=== PATIENT | female | born 1940 | race Caucasian/White ===

== ENCOUNTER 2022-03-20 09:05 | Inpatient (IN) | payer MEDICARE, SELFPAY ==
[2022-03-20] VITALS (8 sets, daily range): BP systolic 131–163; BP diastolic 56–73; PULSE 77–108; RESP 8–20; TEMP 36.6–36.9; O2SAT 94–99; BMI 24.7
--- NOTE | ~2022-03-20 | XR_ITS ---
EXAMINATION: XR SHOULDER, LEFT CLINICAL INFORMATION: Shoulder pain. COMPARISON: None TECHNIQUE: AP external rotation, Grashey, scapular Y, and axillary views of the left shoulder. FINDINGS: There is a severe loss of left glenohumeral joint space with inferior periarticular spurring. No visible acute fracture, dislocation or subluxation seen. Moderate left basilar scarring and hypertrophic changes of the acromion noted. No loose bodies or joint effusion seen. XR/XR shoulder LT min 2V IMPRESSION: Degenerative arthritic changes left shoulder. No visible acute fracture or dislocation seen.
--- NOTE | ~2022-03-20 | CT_ITS ---
EXAMINATION: CT angio head neck stroke CLINICAL INFORMATION: Question stroke. Facial droop. COMPARISON: CT head 03/20/2022. TECHNIQUE: Director Of Event Marketing images were obtained. A CT angiogram of the head and neck was performed in the arterial phase after the intravenous administration of 70 mL Omnipaque 350. Delayed postcontrast images of the head were also obtained. MIP reconstructions were generated in multiple orientations at the acquisition workstation. Multiple three-dimensional surface rendered images and maximum intensity projection images were generated on a dedicated 3-D lab workstation. Arterial stenoses are measured in accordance with NASCET criteria or similar method if applicable. This CT examination was performed using dose optimization techniques as appropriate, including one or more of the following: Automated exposure control, iterative reconstruction, and adjustment of technique factors (mA and/or kVp) according to patient size (this includes techniques or standardized protocols for targeted exams where dose is matched to indication/reason for exam). Fleischner Society criteria for the followup of incidental pulmonary nodules was implemented if appropriate. Total exam dose-length product 1450 mGy-cm FINDINGS: Head: There is a dome-shaped enhancing dural based mass over the left frontal convexity near the vertex best depicted on axial image 34 788 series 6 measuring approximately 0.6 cm in diameter most likely representing a small meningioma. Otherwise no abnormal intracranial mass or enhancement. There is no intracranial mass effect or midline shift. As seen on prior imaging there is subtle loss of powers-white matter differentiation within the right lentiform nucleus indicating possibility of an acute lacunar infarct in the setting of facial hemiparesis. No intracranial mass effect or hydrocephalus. The calvarium and skull base are intact. Mastoid air cells and middle ear cavities are well aerated. No active paranasal sinus disease. CT angiogram neck: Scattered atheromatous calcification involves the aortic arch apex. Origins of the major aortic branches are widely patent. Common carotid arteries are widely patent. Partially calcified atheromatous plaque involves both carotid bifurcations. No stenosis of the extracranial internal carotid arteries. The cervical vertebral arteries are widely patent. CT angiogram head: Intracranial internal carotid arteries are patent. The intradural vertebral artery segments and basilar artery are patent. Anterior, middle, and posterior cerebral artery complexes are normal. No intracranial large vessel occlusion. No identifiable aneurysm or high flow vascular lesion. The timing of the contrast injection provides adequate opacification of the dural venous sinuses. The right transverse and sigmoid sinus are hypoplastic. The dominant left transverse and sigmoid sinus are patent. Other: Soft tissues of the neck including the thyroid gland are normal. No pathologically enlarged cervical lymph nodes. Lung apices are clear. There is multilevel degenerative spondylosis of the cervical spine. Grossly no evidence of canal compromise. CT/CT angio head neck stroke IMPRESSION: As seen on prior imaging there is subtle loss of powers-white matter differentiation within the right lentiform nucleus indicating the possibility of an acute lacunar infarct in the setting of suspected stroke. There is no stenosis of the cervical carotid or vertebral arteries. No intracranial large vessel occlusion. No identifiable aneurysm or high flow vascular lesion. Incidentally there is a dome-shaped enhancing dural based mass over the left frontal convexity near the vertex measuring 0.6 cm in diameter most likely representing a small meningioma. This critical result was discussed with Dr Jeromy Mcfarland at 9:37 AM on 03/20/2022 and it was ascertained that the content and urgency of the report was understood at the time of direct communication.
--- NOTE | ~2022-03-20 | CT_ITS ---
EXAMINATION: CT HEAD WITHOUT CONTRAST (STROKE PROTOCOL) CLINICAL INFORMATION: Stroke protocol. Facial droop COMPARISON: None TECHNIQUE: Contiguous axial imaging was performed from the skull base to vertex without intravenous administration of contrast. This CT examination was performed using dose optimization techniques as appropriate, variously including the following: *Automated exposure control *Adjustment of mA and/or kV according to patient size (this includes techniques or standardized protocols for targeted exams where dose is matched to indication/reason for exam; i.e. extremities or head) *Use of iterative reconstruction technique DLP: 670 mGy-cm FINDINGS: There is a region of diminished density involving the right basal ganglia and extreme capsule consistent with infarct. No intracranial hemorrhage is identified. No significant mass effect. No midline structure shift is seen. Gonzalez-white matter interface is maintained. There is some mild prominence of ventricles, sulci, and cisterns consistent with some degree of generalized atrophy. There is some periventricular white matter low density seen consistent with microangiopathy. Visualized paranasal sinuses and mastoid air cells unremarkable. There is deformity of the right orbital globe question related to previous trauma. CT/CT head for stroke IMPRESSION: Findings consistent with right basal ganglia infarct. No hemorrhage or mass effect. This critical result was discussed with Dr. Mcfarland at 9:35 AM hours on March 20, 2022. It was ascertained that the content and urgency of the report was understood at the time of direct communication.
--- NOTE | ~2022-03-20 | XR_ITS ---
EXAMINATION: XR CHEST CLINICAL INFORMATION: Chest pain. COMPARISON: None TECHNIQUE: Frontal view of the chest was obtained. FINDINGS: The lungs are clear. The heart shows an aortic valve prosthesis and atrial appendage clip in place. Multilevel sternotomy wires are intact. XR/XR chest 1V IMPRESSION: No acute cardiopulmonary process.
--- NOTE | ~2022-03-20 | MR_ITS ---
MRI OF THE BRAIN WITHOUT IV CONTRAST INDICATION: Right basal ganglia infarct on CT. COMPARISON: CT head and CTA head and neck March 2022. TECHNIQUE: Multiplanar multisequence MR imaging of the brain was obtained without IV contrast. FINDINGS: There is no hydrocephalus, extra-axial surface collection, or herniation. There is an acute infarct involving the posterior right putamen and the body of the right caudate. There is no mass effect and there is no hemorrhagic transformation. There is global cerebral volume loss, there is mild chronic microangiopathy, there is a chronic lacunar infarct within the right frontal centrum semiovale. The major flow voids at the skull base are preserved. There is no acute infarct on diffusion-weighted imaging. There is no intracranial hemorrhage on the gradient recalled echo acquisition. The midline structures are normal. The cerebellar tonsils are normally positioned. There are a few chronic lacunar infarcts within the left cerebellum. The craniocervical junction is normal. Osseous marrow signal intensity is homogenous. Right-sided phthisis bulbi. Elongated left globe again noted. MR/MR head/brain wo con IMPRESSION: - There is an acute infarct involving the posterior right putamen and the body of the right caudate. There is no mass effect and there is no hemorrhagic transformation. - There is global cerebral volume loss, there is mild chronic microangiopathy, there is a chronic lacunar infarct within the right frontal centrum semiovale.
[2022-03-20 09:14] LABS: Glucose, Whole Blood 116 mg/dL (60-115)
--- NOTE | 2022-03-20 09:16 | ECG_ITS ---
Test Reason : STROKE Blood Pressure : / mmHG Vent. Rate : 093 BPM Atrial Rate : 093 BPM P-R Int : 174 ms QRS Dur : 078 ms QT Int : 374 ms P-R-T Axes : 063 -03 069 degrees QTc Int : 465 ms Normal sinus rhythm Possible Left atrial enlargement Borderline ECG No previous ECGs available Referred By: Jeromy Mcfarland Electronically Signed By:KARO OH MD
--- NOTE | 2022-03-20 09:17 | ED.NEUROSD ---
HPI - Neuro Symptoms/Deficit General Chief Complaint: Stroke Stated Complaint: Stroke alert,L side numb,L side face droop per EMS Time Seen by Provider: 03/20/22 09:10 Source: patient Mode of arrival: EMS Limitations: no limitations History of Present Illness HPI Narrative: This is a 82 years old of female brought in as a stroke alert, patient states that she got up in the morning about 04:00 o'clock in the morning to going to the bathroom got dizzy and fell. Patient states she could not get up and ambulance was called about 830 in the morning she arrived here about 905. Per EMS she had numbness in the left side Onset (ago): hour(s) (5 h ago) Location: other (left numbness) Severity: mild Quality: numb Relieving factors: none Context: sudden onset Associated symptoms: denies other symptoms Related Data Home Medications Medication Instructions Recorded Confirmed calcium carbonate 600 mg-vitamin 1 tab PO BID 03/20/22 03/20/22 D3 5 mcg (200 unit) tablet clonazepam 0.5 mg tablet 1 tab PO BID PRN Anxiety 03/20/22 03/20/22 latanoprost 0.005 % eye drops 1 drp ophthalmic-Left BEDTIME 03/20/22 03/20/22 lisinopril 5 mg tablet 1 tab PO DAILY 03/20/22 03/20/22 prednisolone acetate 1 % eye 1 drp ophthalmic-Right BID 03/20/22 03/20/22 drops,suspension timolol maleate 0.5 % eye drops 1 drp ophthalmic-Left BID 03/20/22 03/20/22 Allergies Allergy/AdvReac Type Severity Reaction Status Date / Time Penicillins Allergy Unknown Verified 03/20/22 10:15 procaine [From Novocain] Allergy Unknown Verified 03/20/22 10:15 Review of Systems Constitutional: Constitutional: Reports no additional constitutional complaints ENT: Reports system reviewed and no additional complaints, except as documented Cardiovascular: Cardiovascular: Reports no additional cardiovascular complaints Respiratory: Respiratory: Reports no additional respiratory complaints Musculoskeletal: Musculoskeletal: Reports no additional musculoskeletal complaints [facility] Past Medical History Medical History (Updated 03/20/22 @ 12:43 by SAIMA Velazquez) Macular degeneration Retinal hemorrhage Surgical History (Updated 03/20/22 @ 12:43 by SAIMA Velazquez) Heart valve replaced Family History Family History (Updated 03/20/22 @ 12:44 by SAIMA Velazquez) Sister Stroke Mother Acute CHF Social History Social History (Updated 03/20/22 @ 12:45 by SAIMA Velazquez) Alcohol intake: never Patient Tobacco Use Status: Former Tobacco user Cigarette Packs Per Day: 2 Years Smoked: 40 Smoked in Last 30 Days: No Use of substances other than those prescribed or required for medical reasons: No Advance Directives: No Physical Exam Vital Signs: Vital Signs: Last Vital Signs Temp 97.9 F 03/20/22 09:35 Pulse 105 H 03/20/22 12:14 Resp 12 03/20/22 12:14 BP 163/62 H 03/20/22 12:14 Pulse Ox 99 03/20/22 12:14 O2 Del Method 03/20/22 12:14 BMI result Body Mass Index 24.7 She is awake alert oriented x3 able to give history Const: General: cooperative, comfortable, no acute distress, well developed, alert, awake and Physically active Nutritional Appearance: average body habitus Orientation/consciousness: patient oriented x3 Limitations: no limitations HEENT: Other: Examination of the head eyes ears nose and throat shows no sign of trauma, she has a right eye prosthesis Face and sinus: Yes normal facial exam Eyes: Other: Right eye prosthesis Neck: Neck: Yes normal visual inspection and Yes full ROM Chest: Chest palpation & inspection: normal inspection of the chest Resp: Effort & Inspection: normal respiratory effort Auscultation: clear to auscultation bilaterally Cardio: Jugular venous distension: no JVD Rate: regular rate Rhythm: regular rhythm GI: Inspection: Yes normal to inspection Palpation (GI): Soft to palpation, not firm, nontender and no guarding Percussion: Yes normal to percussion : General: Yes no CVA tenderness Back/Spine/Pelvis: Back: no CVA tenderness Cervical Spine: cervical ROM normal Skin: General skin exam: no rashes or lesions noted, elasticity normal and turgor normal Neuro: General: patient oriented x3 Cranial nerves: Yes CN's II-XII intact bilaterally Cognition (Neuro): normal cognition Motor exam (neuro): 5/5 motor strength present throughout Course Reevaluation(s) Reevaluation #1: CT scan shows right basilar gangliar infarct, again the pt is out of the window for tPA. I discussed the case with the neurologist Dr. Cruz Time: 09:55 Medications Administered Discontinued Medications Generic Name Dose Route Start Last Admin Trade Name Joseq PRN Reason Stop Dose Admin Aspirin 324 mg 03/20/22 10:31 03/20/22 11:09 Aspirin 81 Mg Tab.Chew PO 03/20/22 10:32 Not Given ONCE ONE Iohexol 100 ml 03/20/22 09:31 03/20/22 09:31 Iohexol 350 Mg/Ml 100 Ml Infus..Btl IV 03/20/22 09:32 75 ml ONCE ONE Administration Medical Decision Making Medical Decision Making [facility] Narrative: Patient presented with a possible stroke however she is out of the window for tPA also she had a fall Differential Diagnosis Differential Diagnoses: The differential diagnosis associated with the presentation includes CVA/intracranial bleed Admission/Observation Consideration of admission/observation: Escalation of care including admission/observation considered Consult Healthcare Provider Management of the patient was discussed with: Lining Closer spoke with neurologist Dr Cruz Lab Data [facility] Lab Attestation statement: I reviewed the patient's lab results. 03/20/22 09:42 03/20/22 09:42 Labs: Lab Results 03/20/22 03/20/22 03/20/22 Range/Units 09:08 09:38 09:42 WBC 12.6 H (4.8-10.8) X10*3/uL RBC 3.18 L (4.20-5.50) X10*6/uL Hgb 11.0 L (12.0-16.0) g/dl Hct 32.4 L (37.0-47.0) % MCV 101.9 H (80.0-98.0) fL MCH 34.6 H (27.0-33.0) pg MCHC 34.0 (31.0-35.0) g/dl RDW 14.4 (11.0-16.0) % Plt Count 213 (160-400) X10*3/uL MPV 11.5 (9.4-12.3) fL Immature Gran % (Auto) 0.6 H (0.0-0.4) % Neut % (Auto) 85.9 H (45-73) % Lymph % (Auto) 6.1 L (20-40) % [place] % (Auto) 6.5 (2-11) % Eos % (Auto) 0.5 (0-4) % Baso % (Auto) 0.4 (0-2) % Lymph # (Auto) 0.8 L (1.2-4.9) X10*3/uL [place] # (Auto) 0.8 (0.1-1.2) X10*3/uL Eos # (Auto) 0.1 (0.0-0.4) X10*3/uL Baso # (Auto) 0.1 (0.0-0.2) X10*3/uL Abs Immat Gran (auto) 0.08 H (0.00-0.03) X10*3/uL Absolute Neuts (auto) 10.9 H (2.0-8.3) x10*3/uL Absolute Nucleated RBC 0.000 (0.0-0.012) X10*3/uL Nucleated RBC % (auto) 0.0 (0.0-0.2) /100WBC Whole Blood PT 12.9 (11.1-13.5) sec Whole Blood INR 1.1 (0.9-1.1) APTT (26.0-36.4) SEC Sodium (135-145) mmol/L Potassium (3.3-5.1) mmol/L Chloride (96-108) mmol/L Carbon Dioxide (22-29) mmol/L Anion Gap (12-20) BUN (9-16) mg/dL Creatinine (0.5-1.4) mg/dL Estim Creat Clear Calc Estimated GFR POC Glucose 116 H (60-115) mg/dL Random Glucose (60-115) mg/dL Calcium (8.4-10.2) mg/dL Total Bilirubin (0.0-1.0) mg/dL AST (5-31) U/L ALT (0-31) U/L Alkaline Phosphatase (39-117) U/L Troponin I High Sens (<3.5-17.0) ng/L Total Protein (6.5-8.0) g/dL Albumin (3.5-5.0) g/dL COVID-19 ([facility]) (Negative) COVID-19 Clin Com 03/20/22 03/20/22 03/20/22 Range/Units 09:42 09:42 09:42 WBC (4.8-10.8) X10*3/uL RBC (4.20-5.50) X10*6/uL Hgb (12.0-16.0) g/dl Hct (37.0-47.0) % MCV (80.0-98.0) fL MCH (27.0-33.0) pg MCHC (31.0-35.0) g/dl RDW (11.0-16.0) % Plt Count (160-400) X10*3/uL MPV (9.4-12.3) fL Immature Gran % (Auto) (0.0-0.4) % Neut % (Auto) (45-73) % Lymph % (Auto) (20-40) % [place] % (Auto) (2-11) % Eos % (Auto) (0-4) % Baso % (Auto) (0-2) % Lymph # (Auto) (1.2-4.9) X10*3/uL [place] # (Auto) (0.1-1.2) X10*3/uL Eos # (Auto) (0.0-0.4) X10*3/uL Baso # (Auto) (0.0-0.2) X10*3/uL Abs Immat Gran (auto) (0.00-0.03) X10*3/uL Absolute Neuts (auto) (2.0-8.3) x10*3/uL Absolute Nucleated RBC (0.0-0.012) X10*3/uL Nucleated RBC % (auto) (0.0-0.2) /100WBC Whole Blood PT (11.1-13.5) sec Whole Blood INR (0.9-1.1) APTT 32.9 (26.0-36.4) SEC Sodium 140 (135-145) mmol/L Potassium 4.1 (3.3-5.1) mmol/L Chloride 107 (96-108) mmol/L Carbon Dioxide 20 L (22-29) mmol/L Anion Gap 17 (12-20) BUN 20 H (9-16) mg/dL Creatinine 0.74 (0.5-1.4) mg/dL Estim Creat Clear Calc 47.3 Estimated GFR > 60 POC Glucose (60-115) mg/dL Random Glucose 109 (60-115) mg/dL Calcium 9.3 (8.4-10.2) mg/dL Total Bilirubin 1.1 H (0.0-1.0) mg/dL AST 23 (5-31) U/L ALT 20 (0-31) U/L Alkaline Phosphatase 64 (39-117) U/L Troponin I High Sens 29.8 H (<3.5-17.0) ng/L Total Protein 6.4 L (6.5-8.0) g/dL Albumin 4.3 (3.5-5.0) g/dL COVID-19 ([facility]) (Negative) COVID-19 Clin Com 03/20/22 Range/Units 11:31 WBC (4.8-10.8) X10*3/uL RBC (4.20-5.50) X10*6/uL Hgb (12.0-16.0) g/dl Hct (37.0-47.0) % MCV (80.0-98.0) fL MCH (27.0-33.0) pg MCHC (31.0-35.0) g/dl RDW (11.0-16.0) % Plt Count (160-400) X10*3/uL MPV (9.4-12.3) fL Immature Gran % (Auto) (0.0-0.4) % Neut % (Auto) (45-73) % Lymph % (Auto) (20-40) % [place] % (Auto) (2-11) % Eos % (Auto) (0-4) % Baso % (Auto) (0-2) % Lymph # (Auto) (1.2-4.9) X10*3/uL [place] # (Auto) (0.1-1.2) X10*3/uL Eos # (Auto) (0.0-0.4) X10*3/uL Baso # (Auto) (0.0-0.2) X10*3/uL Abs Immat Gran (auto) (0.00-0.03) X10*3/uL Absolute Neuts (auto) (2.0-8.3) x10*3/uL Absolute Nucleated RBC (0.0-0.012) X10*3/uL Nucleated RBC % (auto) (0.0-0.2) /100WBC Whole Blood PT (11.1-13.5) sec Whole Blood INR (0.9-1.1) APTT (26.0-36.4) SEC Sodium (135-145) mmol/L Potassium (3.3-5.1) mmol/L Chloride (96-108) mmol/L Carbon Dioxide (22-29) mmol/L Anion Gap (12-20) BUN (9-16) mg/dL Creatinine (0.5-1.4) mg/dL Estim Creat Clear Calc Estimated GFR POC Glucose (60-115) mg/dL Random Glucose (60-115) mg/dL Calcium (8.4-10.2) mg/dL Total Bilirubin (0.0-1.0) mg/dL AST (5-31) U/L ALT (0-31) U/L Alkaline Phosphatase (39-117) U/L Troponin I High Sens (<3.5-17.0) ng/L Total Protein (6.5-8.0) g/dL Albumin (3.5-5.0) g/dL COVID-19 ([facility]) Negative (Negative) COVID-19 Clin Com See Note Independent Interpretation I performed an independent interpretation of an: EKG Interpretation: I personally reviewed the EKG normal sinus rhythm rate he 93 no ischemic changes Radiology Impression Discussion of test interpretation with radiology: I discussed test interpretation with the radiologist and I have reviewed the radiologist's reading. Radiologist Impression: There is a region of diminished density involving the right basal ganglia and extreme capsule consistent with infarct. No intracranial hemorrhage is identified. No significant mass effect. No midline structure shift is seen. Gonzalez-white matter interface is maintained. There is some mild prominence of ventricles, sulci, and cisterns consistent with some degree of generalized atrophy. There is some periventricular white matter low density seen consistent with microangiopathy. Visualized paranasal sinuses and mastoid air cells unremarkable. There is deformity of the right orbital globe question related to previous trauma. CT/CT head for stroke IMPRESSION: Findings consistent with right basal ganglia infarct. No hemorrhage or mass effect. ? This critical result was discussed with Dr. Mcfarland at 9:35 AM hours on March 20, 2022. It was ascertained that the content and urgency of the report was understood at the time of direct communication. Dictated By: Osorio Bee MD Signed By: <Electronically signed by Osorio Bee MD in [place]> 03/20/2241 DD/ 7 NIH Stroke Scale Time: 09:22 Level of Consciousness: Alert Level of Consciousness Questions: Answers both questions correctly Level of Consciousness Commands: Performs both tasks correctly Best Gaze: Normal Visual: No visual loss Facial Palsy: Minor paralyis Motor Arm (Right): No drift Motor Arm (Left): No drift Motor Leg (Right): No drift Motor Leg (Left): No drift Limb Ataxia: Absent Sensory: Normal Best Language: No aphasia Dysarthia: Normal Extinction and Inattention: No abnormality Score: 1 Critical Care Time Critical Care Time Critical Care Time: Yes Total Critical Care Time: 60 Attestation: SPEAKING WITH ems/TAKING CARE OF THE PT/SPEAKING WITH HOSPITALIST/NEUROLOGIST/NEURORADIOLOGIST Discharge Plan Discharge Clinical Impression: Cerebrovascular accident Patient Disposition: Admitted As Inpatient
[2022-03-20] MEDS: iohexoL 350 MG/ML 100 ML INFUS..BTL IV (09:31)
[2022-03-20 09:47] LABS: MANUAL DIFF FLAG NO
[2022-03-20 09:50] LABS: Basophils Absolute Auto 0.1 X10*3/uL (0.0-0.2); Basophils Percent Auto 0.4 % (0-2); Eosinophils Absolute Auto 0.1 X10*3/uL (0.0-0.4); Eosinophils Percent Auto 0.5 % (0-4); Hematocrit 32.4 % (37.0-47.0); Imm Gran Abs Auto 0.08 X10*3/uL (0.00-0.03); Imm Gran Pct Auto 0.6 % (0.0-0.4); Lymphocytes Absolute Auto 0.8 X10*3/uL (1.2-4.9); Lymphocytes Percent Auto 6.1 % (20-40); Mean Corpuscular Hemoglobin 34.6 pg (27.0-33.0); Mean Corpuscular Volume 101.9 fL (80.0-98.0); Mean Platelet Volume 11.5 fL (9.4-12.3); Monocytes Absolute Auto 0.8 X10*3/uL (0.1-1.2); Monocytes Percent Auto 6.5 % (2-11); Neutrophils Absolute Auto 10.9 x10*3/uL (2.0-8.3); Neutrophils Percent Auto 85.9 % (45-73); Platelet Count 213 X10*3/uL (160-400); Red Blood Count 3.18 X10*6/uL (4.20-5.50); Red Cell Distribution Width 14.4 % (11.0-16.0); White Blood Count 12.6 X10*3/uL (4.8-10.8)
[2022-03-20 09:57] LABS: Partial Thromboplastin Time 32.9 SEC (26.0-36.4)
[2022-03-20 10:06] LABS: Alanine Aminotransferase 20 U/L (0-31); Albumin Level 4.3 g/dL (3.5-5.0); Alkaline Phosphatase 64 U/L (39-117); Anion Gap 17 (12-20); Aspartate Amino Transferase 23 U/L (5-31); Bilirubin Total 1.1 mg/dL (0.0-1.0); Blood Urea Nitrogen 20 mg/dL (9-16); Calcium 9.3 mg/dL (8.4-10.2); Carbon Dioxide 20 mmol/L (22-29); Chloride 107 mmol/L (96-108); Creatinine Clr Calc Pharmacy 47.3; Estimated Glomerular Filt Rate > 60; Glucose Random 109 mg/dL (60-115); Potassium 4.1 mmol/L (3.3-5.1); Sodium 140 mmol/L (135-145); Total Protein 6.4 g/dL (6.5-8.0)
[2022-03-20 10:13] LABS: Troponin-I High Sensitivity 29.8 ng/L (<3.5-17.0)
--- NOTE | 2022-03-20 10:13 | MHC.EDTECH ---
Patient came from home via EMS. She stated she was soiled, had a BM at home and was not able to clean herself fully. Patient was cleaned up, bedding changed and pad placed. Patient placed into a hospital gown. Repositioned and head of bed elevated. Given call fletcher and instructed to call use if she needed anything.
--- NOTE | 2022-03-20 10:24 | P.CNNE_ITS ---
History of Present Illness Data of Consult Service Date: 03/20/22 Primary Care Provider: Yaneli Richards MD [facility] Reason for consult: Dizziness 82 years old woman who came to hospital with complaint of dizziness, which has happened in the past. She woke up and everything was spinning and she could not keep her balance. She said that it happened in the past in doctor's office and she was told she has word ago. There was no other associated symptoms such as any focal weakness change in speech or confusion. There was no headache or cold or flu-like illness. Review of Systems Review of Systems: As in [facility] Social History Social History Advance Directives: No Meds Allergies Allergy/AdvReac Type Severity Reaction Status Date / Time Penicillins Allergy Unknown Verified 03/20/22 10:15 procaine [From Novocain] Allergy Unknown Verified 03/20/22 10:15 Active Medications: Current Medications Pharmacy Consult (Consult Rx Perform Med Rec) 1 each MISCELLANE ONCE PRN PRN Reason: Consult order Physical Exam Vital Signs: Vital Signs: Last Vital Signs Temp 97.9 F 03/20/22 09:35 Pulse 97 03/20/22 09:35 Resp 17 03/20/22 09:35 BP 151/60 H 03/20/22 09:35 Pulse Ox 99 03/20/22 09:35 O2 Del Method 03/20/22 09:35 BMI result Body Mass Index 24.7 Neuro: Other: Alert and awake with normal spontaneity of speech fluency comprehension and affect. 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 Otherwise face was symmetrical. Left pupils were round reactive. There was no pronator drift. Deep tendon reflexes were absent with flexor plantars. Speech was normal Results Labs 03/20/22 09:42 03/20/22 09:42 Labs: Short CBC 03/20/22 Range/Units 09:42 WBC 12.6 H (4.8-10.8) X10*3/uL Hgb 11.0 L (12.0-16.0) g/dl Hct 32.4 L (37.0-47.0) % Plt Count 213 (160-400) X10*3/uL BMP 03/20/22 09:42 Sodium 140 Potassium 4.1 Chloride 107 Carbon Dioxide 20 L BUN 20 H Creatinine 0.74 Calcium 9.3 Liver Function 03/20/22 Range/Units 09:42 Total Bilirubin 1.1 H (0.0-1.0) mg/dL AST 23 (5-31) U/L ALT 20 (0-31) U/L Alkaline Phosphatase 64 (39-117) U/L Albumin 4.3 (3.5-5.0) g/dL Head CT revealed a right basal ganglia area hypodensity suggestive of an ischemic lesion. Age was difficult to determine. Left frontal meningioma was noted. CTA did not reveal any significant vascular pathology Assessment and Plan (1) Cerebral infarction: Status: Acute Right basal ganglia area ischemic infarction but it is age was difficult to determine. 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 Noncontrast MRI of brain can help to rule out acuteness. Mainstay of management is blood pressure control anti-platelet agent and statins. (2) Dizziness: Status: Acute Probably a vertigo type. Reassurance and education is recommended. Time Spent With Patient Time: Total time managing care of this patient today ____ minutes. Procedures Date of Service Date of Service: 03/20/22
--- NOTE | 2022-03-20 10:46 | PHA.MEDREC ---
Pharmacy Consult ? Medication Reconciliation Pharmacy has completed the medication reconciliation.
[2022-03-20 10:47] LABS: Prothrombin Time Whole Bld POC 12.9 sec (11.1-13.5); ~PT, ~INR - Anti Coag Clinic 1.1 (0.9-1.1)
--- NOTE | 2022-03-20 11:13 | PM.IMHP ---
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 Patient states she woke this morning around 03:00 and she noticed that her left hand felt ?weird? and numb. Patient went to go to the bathroom and fell to the floor she tried to get out of bed due to left-sided weakness. Patient then spent the next 4 hours pulling herself along on the floor to get to the phone and to the door to unlock it to let the paramedics in. Patient states that she noticed the left side of her face felt numb and that she was slurring her words. Patient also notes she has this left-sided chest pain which she feels is muscular in nature and related to pulling herself along on the floor with her arms. Patient states that on 01/18/2022 she was at the optometrists when she became dizzy and nearly fainted when standing up to go into the exam room. Pt was diagnosed with vertigo by her PCP two days later and she's been nervous about a repeat episode ever since. Patient denies any dizziness during today's episode.Pt states she still feels like the left side of her face feels weird and that she still occasionally slurs her words some. Denies chest pressure, palpitations. No shortness of breath. Denies headache, new changes in vision. No abdominal pain, nausea/vomiting, fever, chills. Of note, pt had a bovine valve replacement for congenital defect in 2016. Patient also states she has a history of chronic retinal bleeding and was told 20 years ago that she should not take aspirin. Pt is followed by community services coordinator Dr. Britton in [place] and by rear admiral Dr. Ayala in [place], [place]. In the ED patient mildly hypertensive at 151/60. Labs were significant for leukocytosis of 12.6 and elevated troponin 29.8. CXR showed no acute cardiopulmonary process. CT?of head found evidence of right basal ganglia infarct without hemorrhage or mass effect. CTA of head and neck found possible evidence of an acute lacunar infarct in the setting of suspected stroke. No stenosis of cervical carotid or vertebral arteries, no intracranial large vessel occlusion, no identifiable aneurysm, but did find a possible small meningioma over the left frontal convexity. EKG demonstrates normal sinus rhythm without evidence of ST elevations or depressions. Pt will be admitted to the hospital for further workup and evaluation for stroke. Review of Systems Review of Systems: Left-sided weakness and numbness Slurred speech Fall Chest pain, tender to the touch No chest pressure, palpitations Denies dizziness, headache, changes in vision No shortness of breath Denies abdominal pain, nausea, vomiting, fever, chills Yes all other systems are reviewed and are negative [facility] Medical History (Updated 03/20/22 @ 12:43 by SAIMA Velazquez) Macular degeneration Retinal hemorrhage Family History (Updated 03/20/22 @ 12:44 by SAIMA Velazquez) Sister Stroke Mother Acute CHF Surgical History (Updated 03/20/22 @ 12:43 by SAIMA Velazquez) Heart valve replaced Social History (Updated 03/20/22 @ 12:45 by SAIMA Velazquez) Household Members: None Housing: House Do you presently have visiting nurse or other home services: No Alcohol intake: never Patient Tobacco Use Status: Former Tobacco user Cigarette Packs Per Day: 2 Years Smoked: 40 Smoked in Last 30 Days: No Patient Interested in Nicotine Replacement: No (PT QUIT 7 YEARS AGO) Second Hand Smoke Exposure: No Use of substances other than those prescribed or required for medical reasons: No Currently Displaying Signs/Symptoms of Drug Intoxication Withdrawal: No Have you been hit, kicked, punched, or otherwise hurt by someone within the past year? If so, by whom?: No Do you feel safe in your current relationship?: Yes Is there a partner from a previous relationship who is making you feel unsafe now?: No Are you made to feel afraid or neglected: No Advance Directives: No Do you have thoughts of harming others: None Do you have a plan to hurt others: No Plan Recently lost weight without trying: No Eating poorly because of decreased appetite: No Nutrition Risks: No Nutritional Risk Patient : No : No Poor oral hygiene: No service: No Current occupational status: retired Meds Allergies Allergy/AdvReac Type Severity Reaction Status Date / Time Penicillins Allergy Unknown Verified 03/20/22 10:15 procaine [From Novocain] Allergy Unknown Verified 03/20/22 10:15 Active Medications: Current Medications Pharmacy Consult (Consult Rx Perform Med Rec) 1 each MISCELLANE ONCE PRN PRN Reason: Consult order Home Medications Medication Instructions Recorded Confirmed Last Taken Type calcium carbonate 600 mg-vitamin 1 tab PO BID 03/20/22 03/20/22 03/19/22 History D3 5 mcg (200 unit) tablet clonazepam 0.5 mg tablet 1 tab PO BID PRN Anxiety 03/20/22 03/20/22 Unknown History latanoprost 0.005 % eye drops 1 drp ophthalmic-Left BEDTIME 03/20/22 03/20/22 03/18/22 History lisinopril 5 mg tablet 1 tab PO DAILY 03/20/22 03/20/22 03/19/22 History prednisolone acetate 1 % eye 1 drp ophthalmic-Right BID 03/20/22 03/20/22 03/19/22 History drops,suspension timolol maleate 0.5 % eye drops 1 drp ophthalmic-Left BID 03/20/22 03/20/22 03/19/22 History Physical Exam Vital Signs and Narrative: Vital Signs: Last Vital Signs Temp 97.9 F 03/20/22 09:35 Pulse 98 03/20/22 10:17 Resp 18 03/20/22 10:17 BP 148/56 H 03/20/22 10:17 Pulse Ox 98 03/20/22 10:17 O2 Del Method 03/20/22 10:17 BMI result Body Mass Index 24.7 Constitutional: Alert, in no acute distress. Mental Status: Oriented to person, place and time. Eyes: Pupils are equal, round, and reactive to light. Ear, Nose, and Throat: Oropharynx clear, mucous membranes moist. Ears and nose without deformities. Trachea midline. Respiratory: Clear to auscultation bilaterally. No wheezing, rales, or rhonchi. Cardiovascular: S1, S2 regular. 2/6 systolic murmurs. Chest: Left side of anterior chest wall tender to palpation. Gastrointestinal: Abdomen soft, non-tender, non-distended. Normal bowel sounds. Neurologic: Cranial nerves II-XII are grossly intact. Possible slight left-sided facial droop with occasional mild slurring of words. Moves all extremities spontaneously. 5/5 strength to upper and lower extremities bilaterally. Skin: No rashes or lesions noted. Musculoskeletal: No cyanosis or clubbing. Extremities: No edema. Psychiatric: Normal mood and affect. Results Labs 03/20/22 09:42 03/20/22 09:42 Labs: Laboratory Results - last 24 hr 03/20/22 03/20/22 03/20/22 09:08 09:38 09:42 MCV 101.9 H MCH 34.6 H MCHC 34.0 RDW 14.4 Plt Count 213 MPV 11.5 Immature Gran % (Auto) 0.6 H Neut % (Auto) 85.9 H Lymph % (Auto) 6.1 L [place] % (Auto) 6.5 Eos % (Auto) 0.5 Baso % (Auto) 0.4 Lymph # (Auto) 0.8 L [place] # (Auto) 0.8 Eos # (Auto) 0.1 Baso # (Auto) 0.1 Abs Immat Gran (auto) 0.08 H Absolute Neuts (auto) 10.9 H Absolute Nucleated RBC 0.000 Nucleated RBC % (auto) 0.0 Whole Blood PT 12.9 Whole Blood INR 1.1 APTT Anion Gap Estim Creat Clear Calc Estimated GFR POC Glucose 116 H Random Glucose Calcium Total Bilirubin AST ALT Alkaline Phosphatase Troponin I High Sens Total Protein Albumin 03/20/22 03/20/22 03/20/22 09:42 09:42 09:42 MCV MCH MCHC RDW Plt Count MPV Immature Gran % (Auto) Neut % (Auto) Lymph % (Auto) [place] % (Auto) Eos % (Auto) Baso % (Auto) Lymph # (Auto) [place] # (Auto) Eos # (Auto) Baso # (Auto) Abs Immat Gran (auto) Absolute Neuts (auto) Absolute Nucleated RBC Nucleated RBC % (auto) Whole Blood PT Whole Blood INR APTT 32.9 Anion Gap 17 Estim Creat Clear Calc 47.3 Estimated GFR > 60 POC Glucose Random Glucose 109 Calcium 9.3 Total Bilirubin 1.1 H AST 23 ALT 20 Alkaline Phosphatase 64 Troponin I High Sens 29.8 H Total Protein 6.4 L Albumin 4.3 Imaging Radiologist's Impressions: Impressions Head CT 03/20/22 09:18 IMPRESSION: Findings consistent with right basal ganglia infarct. No hemorrhage or mass effect. This critical result was discussed with Dr. Mcfarland at 9:35 AM hours on March 20, 2022. It was ascertained that the content and urgency of the report was understood at the time of direct communication. Head/Neck CTA 03/20/22 09:25 IMPRESSION: As seen on prior imaging there is subtle loss of powers-white matter differentiation within the right lentiform nucleus indicating the possibility of an acute lacunar infarct in the setting of suspected stroke. There is no stenosis of the cervical carotid or vertebral arteries. No intracranial large vessel occlusion. No identifiable aneurysm or high flow vascular lesion. Incidentally there is a dome-shaped enhancing dural based mass over the left frontal convexity near the vertex measuring 0.6 cm in diameter most likely representing a small meningioma. This critical result was discussed with Dr Jeromy Mcfarland at 9:37 AM on 03/20/2022 and it was ascertained that the content and urgency of the report was understood at the time of direct communication. Chest X-Ray 03/20/22 09:36 IMPRESSION: No acute cardiopulmonary process. 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 Pt will be admitted to the hospital for further workup and evaluation for stroke. CVA CTA shows possibility for acute lacunar infarct Possibly atherothrombotic hypertension-related injury, per neurology Pt outside tPA window: last known well time last night Noncontrast MRI of brain to rule out acuteness Pt told by rear admiral 20 years ago to not take aspirin Lipid profile, consider statin pending results Echocardiogram Neurology consult Monitor on telemetry Elevated troponin Troponin mildly elevated 29.8 Likely due to demand ischemia EKG shows normal sinus rhythm without evidence of ST elevations or depressions The patient denies chest pain/pressure, palpitations Repeat troponin Leukocytosis Likely reactive, no sign of infection Followlabs Glaucoma Continue home meds HTN Continue home meds DNI/DNR Attending:?Dr. Nicole DVT Prophylaxis: Pneumatic boots Pt will require a hospitalization of at least two nights for treatment and further evaluation of stroke. Time Spent With Patient Time: Total time managing care of this patient today ____ minutes. Quality Stroke Does the patient have a stroke diagnosis?: Yes Reason for No Anti-thrombotic by Day Two: Medication refused (Pt told not to take aspirin d/t hx of retinal bleeding) VTE Prior VTE?: No VTE Risk Level:: Medical - moderate - high VTE Device Contraindication: Treatment Not Indicated VTE Drug Contraindication: N/A - Med Ordered
[2022-03-20 12:07] LABS: COVID-19 Test Negative (Negative); IDNOW Serial# 16C4AD1C
--- NOTE | 2022-03-20 12:09 | PC.NURSE ---
dr. paul at bedside, pt aware of plan of care.
--- NOTE | 2022-03-20 12:24 | MHC.STROKE ---
Addendum entered by Nohemi Garcia RN 03/21/22 13:38: 10:00 I MET THE PATIENT, HER BROTHER AND [id number] TO REVIEW THE PLAN OF CARE AND PROVIDE STROKE EDUCATION. AT LENGTH WE DISCUSSED HER STROKE RISK FACTORS: HTN, AVR REPLACEMENT IN 2016. SHE MENTIONED THAT SHE HAS A TWIN SISTER THAT RECENTLY HAD A STROKE, ALSO + FAMILY HISTORY OF STROKE. WE DISCUSSED HER CT, CTA AND MRI TEST RESULTS. I GAVE HER A SCREENSHOT IDENTIFYING THE LOCATION OF THIS CURRENT STROKE AND CORRELATING SYMPTOMS. I ALSO EXPLAINED THAT THERE WERE CHRONIC STROKES NOTED, LEFT CEREBELLUM INCLUDED. I DID ANSWER ALL OF THEIR QUESTIONS, RECOMMENDED PT/OT TO DR DUVALL, DISCUSSED POSSIBLE REHAB IF ELIGIBLE. I ALSO COMMUNICATED THIS TO CASE MANAGEMENT. SHE HAS AGREED TO WEAR THE PNEUMATIC COMPRESSION BOOTS FOR VTE PROPHYLAXIS. I WILL CONTINUE TO FOLLOW. Original Note: 0901 EMS PRE-NOTIFIED STROKE ALERT FALL WITH LEFT FACIAL SIDED WEAKNESS. ARRIVED AT [facility] 0905, EXAMINED BY PROVIDER STROKE PROTOCOL ACTIVATED. NIHSS = 1, DIRECT TO CT AND CTA H/N. RIGHT BASAL GANGLIA STROKE NOTED. NO LVO, CASE REVIEWED BY DR. SOLANO, EXCLUDED FROM [facility] [place] BASED ON CT FINDING RECENT STROKE AND DELAY IN ARRIVAL. SHE PASSED NURSING SWALLOW SCREEN. IT WAS DETERMINED THAT LKW WAS 03/20/22 0000, DISCOVERY OF SYMPTOMS BETWEEN 0300 AND 0400. ADMIT TO INPATIENT, SEE DR SOLANO'S NOTE. I WILL CONTINUE TO FOLLOW.
--- NOTE | 2022-03-20 12:44 | CA_ITS ---
Transthoracic Echocardiogram Patient (Last, First, Middle): Deepthi Garcia V Gender: Female Date of : 1940 Age: 82 Procedure Date: 03/20/2022 Procedure Type: Transthoracic Echocardiogram Location: ER Height: 152. cm Weight: 57.15 kg BSA: 1.53 m2 Heart Rate: 100 bpm BP: 147 / 62 mmHg Stuffed Casing Tier: SHRUTI Valdez MD: Kristel LANDAVERDE Family Services Coordinator: Cristo Whipple MD Symptoms: Stroke Study Quality: Technically Difficult ECG Rhythm: Tachycardia Conclusions: - 1. Technically limited study despite use of contrast agent 2. Hyperdynamic LV systolic function with LVEF of greater than 70% 3. At least moderate aortic stenosis 4. Severe mitral annular calcification 5. No gross pericardial effusion Findings Procedure Information Contrast agent, definity, is being given per protocol without apparent complications. Left Ventricle Normal left ventricular cavity size. There is normal left ventricular wall thickness. The left ventricular systolic function is hyperdynamic. The visually estimated ejection fraction is >70%. Spectral Doppler is indicative of an impaired relaxation filling pattern. Right Ventricle Normal right ventricular cavity size. Atria The left atrium is normal in size. There is lipomatous hypertrophy of the interatrial septum. There is no evidence of interatrial shunt. The right atrium was not well visualized. Aortic Valve The aortic valve was not well visualized. There is moderate calcification of the aortic valve. There is moderate aortic valve stenosis. The peak aortic gradient is 28 mmHg.The mean gradient is 17 mmHg. There is no aortic valve regurgitation. Mitral Valve There is mild anterior and severe posterior mitral leaflet thickening. There is severe mitral annular calcification. There is trace mitral valve regurgitation. Pulmonic Valve The pulmonic valve was not well visualized. Tricuspid Valve The tricuspid valve was not well visualized. Tricuspid regurgitation envelope is inadequate for calculation of right ventricular systolic pressure. Normal right atrial pressure. Great Vessels The aorta was not well visualized. The pulmonary artery was not well visualized. Venous The inferior vena cava is collapsed, consistent with reduced intravascular volume and collapses greater than 50% with inspiration. Pericardium/Pleural There is no evidence of pericardial effusion. Prior Study Comparison No prior study available for comparison. Measurements 2D Linear Measurements IVSd: 0.96 0.6-0.9/0.6-1.0 cm LVIDd: 3.57 3.9-5.3/4.2-5.9 cm LVIDd Index: 2.33 2.4-3.2/2.2-3.1 cm/m2 LVIDs: 2.26 2.0-3.6 cm LVPWd: 1.09 0.7-1.1 cm LA Diam: 2.90 2.7-3.8/3.0-4.0 cm LAIDs Index: 1.90 1.5-2.3 cm/m2 LV Mass: 137.58 67-162/88-224 g LV Mass Index: 89.92 43-95/49-115 g/m2 LVOT Diam: 1.60 3.0+(-)1.3 cm 2D Systolic Function EF 4C: 69.10 >55% EF 2C: 78.90 >55% EF BiP: 73.90 >55% Mitral Valve MV VTI: 0.26 MV Pk Seun: 1.56 MV Mn Seun: 1.06 MV Pk Grad: 10.00 MV Mn Grad: 5.00 MV Pk E: 1.00 MV PK A: 1.33 MV Decel Time: 256.00 E/A: 0.80 E'Lateral: 5.98 E'Medial: 5.66 E/E' Med: 17.70 E/E' Lat: 16.70 PHT: 75.00 MVA PHT: 2.93 MVA Continuity: 1.90 Decel [place]: 3.92 Aortic Valve AoV Pk Seun: 2.63 AoV Mn Seun: 1.91 AoV VTI: 0.47 AoV Pk Grad: 28.00 Aov Mn Grad: 17.00 SHERIN Cont.VTI: 1.06 LVOT LVOT Pk Seun: 1.23 LVOT Mn Seun: 0.98 LVOT VTI: 0.25 LVOT Pk Grad: 6.00 LVOT Mn Grad: 4.00 LVOT Diam: 1.60 LVOT Area: 2.01 Diastolic Function MV Pk E: 1.00 MV Pk A: 1.33 E/A: 0.80 E'Medial: 5.66 E/E' Med: 17.70 E' Laterial: 5.98 E/E' Lat: 16.70 Right Ventricle TAPSE (mm): 13.00 TVS' Seun: 9.90 Tricuspid Valve RA Press: 3.00 Great Vessels Aorta Sinus of Valsalva: 2.60 2.0-3.5 cm Ao Asc: 2.30 2.1-3.4 cm Pulmonary Valve PV Pk Seun: 1.05 Peak PV Grad: 4.00 Updated in Other Vendor System with Status of Final Cristo Whipple MD electronically signed on 03/20/2022 4:28:23 PM with status of Final
--- NOTE | 2022-03-20 14:04 | PC.NURSE ---
pt to mri via stretcher.
--- NOTE | 2022-03-20 14:20 | PC.NURSE ---
rn to rn report given to
--- NOTE | 2022-03-20 14:49 | PC.NURSE ---
Patient arrived from MRI complaint of earlier stroke like symptoms, AOx 4 no facial droop deviation of tongue or slurring of words. No issue with word finding grasp equal 5/5 no drift or ataxia with good sensation bilaterally. Left eye no nystagmus pupil reactive to light briskly. No distress noted denies any SOB able to move self to hospital bed from stretcher. NSR on promotions producer will CTM
[2022-03-20] MEDS: lisinopriL 5 MG TABLET PO (15:03)
--- NOTE | 2022-03-20 15:09 | PC.NURSE ---
graphic art technician at bedside. Patient able to pass bedside dysphagia screen volitional cough able to puff cheeks, patient able to manage secretions tolerate small and large sips of water without slurring of words or cough tolerated PO antihypertensive.
--- NOTE | 2022-03-20 15:30 | PC.NURSE ---
Waiting on inpatient RN to call back for report
--- NOTE | 2022-03-20 15:40 | PC.NURSE ---
Report to Inpatient RN
[2022-03-20 15:55] LABS: Hematocrit 33.3 % (37.0-47.0); Hemoglobin 11.2 g/dl (12.0-16.0); Mean Corpuscular HGB Conc 33.6 g/dl (31.0-35.0); Mean Corpuscular Hemoglobin 33.9 pg (27.0-33.0); Mean Corpuscular Volume 100.9 fL (80.0-98.0); Mean Platelet Volume 11.5 fL (9.4-12.3); NRBC Pct Auto 0.2 /100WBC (0.0-0.2); Platelet Count 209 X10*3/uL (160-400); Red Cell Distribution Width 14.6 % (11.0-16.0); White Blood Count 10.1 X10*3/uL (4.8-10.8)
--- NOTE | 2022-03-20 15:58 | PM.EVENT ---
Event Note Date of Service: 03/21/22 Event Note: This patient is seen and examined with APC. Lab imaging, EKG reviewed-nsr. trops 29.8 -next pendin cta and mri reviewed: MR/MR head/brain wo con IMPRESSION: - There is an acute infarct involving the posterior right putamen and the body of the right caudate. There is no mass effect and there is no hemorrhagic transformation. ? - There is global cerebral volume loss, there is mild chronic microangiopathy, there is a chronic lacunar infarct within the right frontal centrum semiovale. Physical exam and assessment and plan coordinated in APCs note, Agree with the plan in addition: possible acute cva patient refused asa currently ,added lipid panel leucocytosis -reactive resolved. Started statin, monitor blood pressure for permissive hypertension. neurology eval added added asa after d/w her opthmologist Time Spent With Patient Time: Total time managing care of this patient today ____ minutes.
[2022-03-20] MEDS: Calcium + Vitamin D 250 MG TABLET 500 MG PO (19:46)
[2022-03-20] MEDS: Acetaminophen 325 MG TABLET 650 MG PO (19:46)
[2022-03-20] MEDS: clonazePAM 0.5 MG TABLET PO (23:07)
[2022-03-20] MEDS: timoloL maleate 0.5 % Oph Sol 5 ML DRBTL 1 DROP EYE-LEFT (23:17)
[2022-03-20] MEDS: prednisoLONE Acetate 1 % Oph Susp 5 ML DRPBTL 1 DROP EYE-RIGHT (23:17)
[2022-03-21] VITALS: BP 105/52; PULSE 64; RESP 14; TEMP 37.2; O2SAT 95
--- NOTE | 2022-03-21 | ECG_ITS ---
Test Reason : left shoulder pain Blood Pressure : / mmHG Vent. Rate : 073 BPM Atrial Rate : 073 BPM P-R Int : 148 ms QRS Dur : 076 ms QT Int : 392 ms P-R-T Axes : 043 -02 070 degrees QTc Int : 431 ms Normal sinus rhythm Minimal voltage criteria for LVH, may be normal variant ( R in aVL ) Borderline ECG When compared with ECG of 20-MAR-2022 09:44, No significant change was found Referred By: Frank Nicole Electronically Signed By:KARO OH MD
[2022-03-21 04:00] VITALS: BP 116/56; PULSE 59; RESP 15; TEMP 36.6; O2SAT 98
[2022-03-21] MEDS: Acetaminophen 325 MG TABLET 650 MG PO ×2 (04:48→13:00)
[2022-03-21 07:35] LABS: Cholesterol 139 mg/dL; HDL Cholesterol 63 mg/dL; LDL Cholesterol Calculated 57 mg/dl; Triglycerides 98 mg/dL
[2022-03-21 07:45] LABS: Blood Urea Nitrogen 18 mg/dL (9-16); Calcium 9.3 mg/dL (8.4-10.2); Creatinine Clr Calc Pharmacy 43.7; Estimated Glomerular Filt Rate > 60; Glucose Random 108 mg/dL (60-115)
[2022-03-21 07:55] VITALS: BP 147/67; PULSE 63; RESP 20; TEMP 36.7; O2SAT 97
[2022-03-21 08:52] LABS: Anion Gap 15 (12-20); Carbon Dioxide 22 mmol/L (22-29); Chloride 108 mmol/L (96-108); Sodium 141 mmol/L (135-145)
[2022-03-21] MEDS: Calcium + Vitamin D 250 MG TABLET 500 MG PO ×2 (09:07→20:58)
[2022-03-21] MEDS: timoloL maleate 0.5 % Oph Sol 5 ML DRBTL 1 DROP EYE-LEFT ×2 (09:08→20:59)
[2022-03-21] MEDS: prednisoLONE Acetate 1 % Oph Susp 5 ML DRPBTL 1 DROP EYE-RIGHT ×2 (09:08→20:59)
[2022-03-21] MEDS: lisinopriL 5 MG TABLET PO (09:08)
[2022-03-21] MEDS: Aspirin 81 MG TAB.CHEW PO (09:08)
[2022-03-21 12:00] VITALS: BP 155/70; PULSE 61; RESP 20; TEMP 36.8; O2SAT 95
--- NOTE | 2022-03-21 12:43 | MHC.CM.PN ---
IMM DELIVERED PT LIVES ALONE IN A [facility]. NO PRIOR SERVICES OR DME USED. +HCP +COVID VAX X 4 ([facility]) PCP DR. INDIRA COOK DP: HOME, OPEN TO SERVICES IF REC. AND WOULD LIKE [facility] IF NEEDED. REFERRAL PLACED. BROTHER WILL TRANSPORT HOME. CM WILL CONTINUE TO FOLLOW
[2022-03-21 13:00] LABS: Troponin-I High Sensitivity 12.9 ng/L (<3.5-17.0)
[2022-03-21 14:49] VITALS: BP 165/73; PULSE 70; RESP 17; TEMP 37.1; O2SAT 94
[2022-03-21] MEDS: clonazePAM 0.5 MG TABLET PO ×2 (16:35→23:39)
--- NOTE | 2022-03-21 16:43 | HO.PM.IMPN ---
Subjective Subjective Date of Service: 03/21/22 Interval History: left shoulder pain new cva Review of Systems seems feeling better Denies any chest pain or shortness of breath or fever chills, moving all extremities. Physical Exam Vital Signs: Vital Signs: Last Vital Signs Temp 98.8 F 03/21/22 14:49 Pulse 70 03/21/22 14:49 Resp 17 03/21/22 14:49 BP 165/73 H 03/21/22 14:49 Pulse Ox 94 03/21/22 14:49 O2 Del Method 03/21/22 14:49 BMI result Body Mass Index 24.7 Appearance: Alert.? Oriented X3.? not in distress. cvs: rrr, [id number] , no murmur res: clear to auscultation ,no rhonchii or wheezing abd: no rebound or guarding ,nt, bs present. ext pulses present , no cyanosis. neuro: axo3 , nonfocal. Objective Data Active Medications Acetaminophen (Acetaminophen 325 Mg Tablet) 650 mg PO Q6H PRN PRN Reason: Pain, Mild (Pain Scale 1-3) Last Admin: 03/21/22 13:00 Dose: 650 mg Documented By: CANDELARIA Acetaminophen (Acetaminophen 325 Mg Tablet) 650 mg PO Q6H PRN PRN Reason: arm pain Aspirin (Aspirin 81 Mg Tab.Chew) 81 mg PO DAILY [facility] Last Admin: 03/21/22 09:08 Dose: 81 mg Documented By: CANDELARIA Atorvastatin Calcium (Atorvastatin Calcium 40 Mg Tablet) 40 mg PO BEDTIME [facility] Last Admin: 03/20/22 20:55 Dose: Not Given Documented By: PAULETTE Non-Admin Reason: Patient Refused Calcium Carbonate/Cholecalciferol (Calcium + Vitamin D 250 Mg Tablet) 500 mg PO BID [facility] Last Admin: 03/21/22 09:07 Dose: 500 mg Documented By: CANDELARIA Clonazepam (Clonazepam 0.5 Mg Tablet) 0.5 mg PO BID PRN PRN Reason: Anxiety Last Admin: 03/21/22 16:35 Dose: 0.5 mg Documented By: CANDELARIA Docusate Sodium (Docusate Sodium 100 Mg Capsule) 100 mg PO DAILY PRN PRN Reason: Constipation Latanoprost (Latanoprost 0.005 % Ophth Maris 2.5 Ml Drops) 1 drop EYE-LEFT BEDTIME [facility] Last Admin: 03/20/22 23:17 Dose: Not Given Documented By: PAULETTE Non-Admin Reason: Med Not Available Lisinopril (Lisinopril 5 Mg Tablet) 5 mg PO DAILY [facility]; Protocol Last Admin: 03/21/22 09:08 Dose: 5 mg Documented By: CANDELARIA Ondansetron HCl (Ondansetron Hcl 4 Mg/2 Ml Vial) 4 mg IVPUSH Q8H PRN PRN Reason: Nausea and Vomiting Pharmacy Consult (Consult Rx Perform Med Rec) 1 each MISCELLANE ONCE PRN PRN Reason: Consult order Prednisolone Acetate (Prednisolone Acetate 1 % Oph Susp 5 Ml Drpbtl) 1 drop EYE-RIGHT BID [facility] Last Admin: 03/21/22 09:08 Dose: 1 drop Documented By: CANDELARIA Timolol Maleate (Timolol Maleate 0.5 % Oph Maris 5 Ml Drbtl) 1 drop EYE-LEFT BID [facility] Last Admin: 03/21/22 09:08 Dose: 1 drop Documented By: CANDELARIA Labs 03/20/22 15:48 03/21/22 06:13 Labs: Laboratory Results - last 24 hr 03/21/22 03/21/22 03/21/22 06:13 06:13 12:28 Anion Gap 15 Estim Creat Clear Calc 43.7 Estimated GFR > 60 Random Glucose 108 Calcium 9.3 Troponin I High Sens 12.9 D Triglycerides 98 Cholesterol 139 LDL Cholesterol, Calc 57 HDL Cholesterol 63 Assessment and Plan (1) Cerebrovascular accident: Status: Acute (2) HTN (hypertension): Status: Acute (3) Shoulder arthritis: Status: Acute Plan 82-year-old female with a PMH significant for?HTN, glaucoma, macular degeneration, blind in right eye, and 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 Pt will be admitted to the hospital for further workup and evaluation for stroke. CVA CTA shows possibility for acute lacunar infarct Possibly atherothrombotic hypertension-related injury, per neurology Pt outside tPA window mri -acute cva -There is an acute infarct involving the posterior right putamen and the body of the right caudate. There is no mass effect and there is no hemorrhagic transformation. Lipid profile noted , ldl 57 Echocardiogram added Neurology consult-noted added asa ,permissive htn Monitor on telemetry Elevated troponin Troponin mildly elevated 29.8-tidat 12 ekg unchanged Likely due to demand ischemia EKG shows normal sinus rhythm without evidence of ST elevations or depressions The patient denies chest pain/pressure, palpitations Leukocytosis Likely reactive and resolved , no sign of infection Followlabs Glaucoma Continue home meds HTN: permissive htn hold home meds left shoulder arthritis: added tylenol also will add topical if needed inpatient need: treatment and further evaluation of stroke and workup, tele moniter ,echo. Time Spent With Patient Time: Total time managing care of this patient today ____ minutes. Quality Stroke Does the patient have a stroke diagnosis?: Yes Reason for No Anti-thrombotic by Day Two: Medication refused (Pt told not to take aspirin d/t hx of retinal bleeding) VTE Prior VTE?: No VTE Risk Level:: Medical - moderate - high VTE Device Contraindication: Treatment Not Indicated VTE Drug Contraindication: N/A - Med Ordered
[2022-03-21] MEDS: Lidocaine 4 % Patch ADH..PATCH 1 PATCH TRANSDERMA (18:05)
--- NOTE | 2022-03-21 19:13 | PC.NURSE ---
Patient became very emotional, was crying stating she does not want to live if she cannot take care of her self. After discussing her progress with patient she calmed herself and asked for her anxiety medication. MD was notified and came to see patient, psych consult was ordered for patient.
[2022-03-21 19:17] VITALS: BP 147/70; PULSE 65; RESP 17; TEMP 37.3; O2SAT 95
[2022-03-21] MEDS: Latanoprost 0.005 % Ophth Sol 2.5 ML DROPS 1 DROP EYE-LEFT (21:00)
[2022-03-22] VITALS: BP 135/63; PULSE 64; RESP 18; TEMP 36.6; O2SAT 94
[2022-03-22 07:18] VITALS: BP 143/64; PULSE 67; RESP 16; TEMP 36.1; O2SAT 96
[2022-03-22] MEDS: Calcium + Vitamin D 250 MG TABLET 500 MG PO (08:23)
[2022-03-22] MEDS: Aspirin 81 MG TAB.CHEW PO (08:23)
[2022-03-22] MEDS: lisinopriL 5 MG TABLET PO (08:23)
[2022-03-22] MEDS: prednisoLONE Acetate 1 % Oph Susp 5 ML DRPBTL 1 DROP EYE-RIGHT (08:24)
[2022-03-22] MEDS: timoloL maleate 0.5 % Oph Sol 5 ML DRBTL 1 DROP EYE-LEFT (08:24)
[2022-03-22 11:17] VITALS: BP 143/64; PULSE 67; O2SAT 96
[2022-03-22 11:53] VITALS: BP 155/71; PULSE 75; RESP 17; TEMP 36.1; O2SAT 95
[2022-03-22 13:19] LABS: COVID-19 Test Negative (Negative); IDNOW Serial# 16C4AD1C
--- NOTE | 2022-03-22 14:01 | PM.PSYCN ---
History of Present Illness Date of Service: t Chief Complaint: left sided weakness Reason for Consult: Anxiety and depression Requesting physician: Frank Nicole Discussed with referring provider: Yes Sources of Information: patient interviewed and chart reviewed HPI Narrative: The patient is an 82-year-old female, , with no biological children, retired high school sports coach, living alone with good social support who was admitted into the hospital for a CVA. While she was in the unit, medically treated, he was very tearful, anxious and dysphoric. The present consult was ordered since the patient was very dysphoric. The patient was interviewed at bedside, she was alert, awake and oriented, she acknowledged feeling this him powered now that she got sick. She does not want to be taking care since she had been always independent in her life. She also reported that in the past she used to have anxiety and depression but never formally treated, she tried twice psychotherapy with no results since she never developed a therapeutic relation. She adamantly denies suicidal or homicidal thoughts, denies psychotic symptoms or past history of mood lability. We discussed at length her present situation and she is future oriented but anxious and dysphoric. She is fully aware of her limitations and medical conditions and it seems that her reaction is unclear correlation with the current medical problems. We discussed at length risks, benefits, side-effects and alternatives and the patient agreed on keeping clonazepam as p.r.n. but has help her and probably start a low dose of Zoloft to target dysphoria and anxiety. No safety concerns at this moment. Past Psychiatric History: Never admitted into the hospital no past history of psychiatric treatment, she tried twice psychotherapy in the last years but never followed. She received Klonopin by her current primary care physician. 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 She is highly functional at baseline. She had several relatives who are involved in her care. [facility], [facility] Medical History Macular degeneration Retinal hemorrhage Surgical History Heart valve replaced Family History: Denies Social History: The patient is the 3rd of 4 children, her milestones were achieved at expected age she was raised by her parents. 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 She got and she lost her 12 years ago due to cancer. She has always highly functional and she retired a few years ago. Substance History: Denies Trauma History: Denies Diagnostics Vital Signs (24Hr): Vital Signs - 24 hr 03/21/22 14:49 03/21/22 19:17 03/22/22 00:00 Temperature 98.8 F 99.1 F 97.9 F Pulse Rate 70 65 64 Respiratory Rate 17 17 18 Blood Pressure 165/73 H 147/70 H 135/63 Pulse Oximetry 94 95 94 Oxygen Delivery Method Room Air Room Air Room Air 03/22/22 07:18 03/22/22 11:17 03/22/22 11:53 Temperature 96.9 F 97.0 F Pulse Rate 67 67 75 Respiratory Rate 16 17 Blood Pressure 143/64 H 143/64 H 155/71 H Pulse Oximetry 96 96 95 Oxygen Delivery Method Room Air Room Air BMI result Body Mass Index 24.7 Labs 03/20/22 15:48 03/21/22 06:13 Labs: Laboratory Results - last 48 hr 03/20/22 03/20/22 03/21/22 15:48 15:48 06:13 WBC 10.1 RBC 3.30 L Hgb 11.2 L Hct 33.3 L MCV 100.9 H MCH 33.9 H MCHC 33.6 RDW 14.6 Plt Count 209 MPV 11.5 Absolute Nucleated RBC 0.020 H Nucleated RBC % (auto) 0.2 Sodium Potassium Chloride Carbon Dioxide Anion Gap BUN Creatinine Estim Creat Clear Calc Estimated GFR Random Glucose Calcium Troponin I High Sens 33.0 H Triglycerides 98 Cholesterol 139 LDL Cholesterol, Calc 57 HDL Cholesterol 63 COVID-19 ([facility]) COVID-19 Clin Com 03/21/22 03/21/22 03/22/22 06:13 12:28 12:51 WBC RBC Hgb Hct MCV MCH MCHC RDW Plt Count MPV Absolute Nucleated RBC Nucleated RBC % (auto) Sodium 141 Potassium 4.0 Chloride 108 Carbon Dioxide 22 Anion Gap 15 BUN 18 H Creatinine 0.80 Estim Creat Clear Calc 43.7 Estimated GFR > 60 Random Glucose 108 Calcium 9.3 Troponin I High Sens 12.9 D Triglycerides Cholesterol LDL Cholesterol, Calc HDL Cholesterol COVID-19 ([facility]) Negative COVID-19 Clin Com See Note Imaging Radiology Impressions: ITS Impressions Head CT 03/20/22 09:18 IMPRESSION: Findings consistent with right basal ganglia infarct. No hemorrhage or mass effect. This critical result was discussed with Dr. Mcfarland at 9:35 AM hours on March 20, 2022. It was ascertained that the content and urgency of the report was understood at the time of direct communication. Head/Neck CTA 03/20/22 09:25 IMPRESSION: As seen on prior imaging there is subtle loss of powers-white matter differentiation within the right lentiform nucleus indicating the possibility of an acute lacunar infarct in the setting of suspected stroke. There is no stenosis of the cervical carotid or vertebral arteries. No intracranial large vessel occlusion. No identifiable aneurysm or high flow vascular lesion. Incidentally there is a dome-shaped enhancing dural based mass over the left frontal convexity near the vertex measuring 0.6 cm in diameter most likely representing a small meningioma. This critical result was discussed with Dr Jeromy Mcfarland at 9:37 AM on 03/20/2022 and it was ascertained that the content and urgency of the report was understood at the time of direct communication. Chest X-Ray 03/20/22 09:36 IMPRESSION: No acute cardiopulmonary process. Brain MRI 03/20/22 14:32 IMPRESSION: - There is an acute infarct involving the posterior right putamen and the body of the right caudate. There is no mass effect and there is no hemorrhagic transformation. - There is global cerebral volume loss, there is mild chronic microangiopathy, there is a chronic lacunar infarct within the right frontal centrum semiovale. Shoulder X-Ray 03/21/22 11:40 IMPRESSION: Degenerative arthritic changes left shoulder. No visible acute fracture or dislocation seen. Mental Status Exam Mental Status Exam Patient Appearance: Appropriate Patient Orientation: Person, Place and Situation Level of Consciousness: Awake and Appropriate Patient Behavior: Cooperative and Passive Mood Description: Withdrawn and Constricted Affect Description: Constricted Patient Cognition Impaired: No Ability to Follow Directions: Good Speech Pattern: Clear Hallucinations: None Delusions: Not Present Thought Process: Linear Thought Content: positive for Circumstantial Judgement: Fair Medications Medications Current Medications Acetaminophen (Acetaminophen 325 Mg Tablet) 650 mg PO Q6H PRN PRN Reason: Pain, Mild (Pain Scale 1-3) Last Admin: 03/21/22 13:00 Dose: 650 mg Acetaminophen (Acetaminophen 325 Mg Tablet) 650 mg PO Q6H PRN PRN Reason: arm pain Aspirin (Aspirin 81 Mg Tab.Chew) 81 mg PO DAILY [facility] Last Admin: 03/22/22 08:23 Dose: 81 mg Atorvastatin Calcium (Atorvastatin Calcium 40 Mg Tablet) 40 mg PO BEDTIME [facility] Last Admin: 03/21/22 21:02 Dose: Not Given Calcium Carbonate/Cholecalciferol (Calcium + Vitamin D 250 Mg Tablet) 500 mg PO BID [facility] Last Admin: 03/22/22 08:23 Dose: 500 mg Clonazepam (Clonazepam 0.5 Mg Tablet) 0.5 mg PO BID PRN PRN Reason: Anxiety Last Admin: 03/21/22 23:39 Dose: 0.5 mg Docusate Sodium (Docusate Sodium 100 Mg Capsule) 100 mg PO DAILY PRN PRN Reason: Constipation Latanoprost (Latanoprost 0.005 % Ophth Maris 2.5 Ml Drops) 1 drop EYE-LEFT BEDTIME [facility] Last Admin: 03/21/22 21:00 Dose: 1 drop Lidocaine (Lidocaine 4 % Patch Adh..Patch) 1 patch TRANSDERMA DAILY [facility]; Protocol Last Admin: 03/22/22 08:24 Dose: Not Given Lisinopril (Lisinopril 5 Mg Tablet) 5 mg PO DAILY [facility]; Protocol Last Admin: 03/22/22 08:23 Dose: 5 mg Ondansetron HCl (Ondansetron Hcl 4 Mg/2 Ml Vial) 4 mg IVPUSH Q8H PRN PRN Reason: Nausea and Vomiting Pharmacy Consult (Consult Rx Perform Med Rec) 1 each MISCELLANE ONCE PRN PRN Reason: Consult order Prednisolone Acetate (Prednisolone Acetate 1 % Oph Susp 5 Ml Drpbtl) 1 drop EYE-RIGHT BID [facility] Last Admin: 03/22/22 08:24 Dose: 1 drop Timolol Maleate (Timolol Maleate 0.5 % Oph Maris 5 Ml Drbtl) 1 drop EYE-LEFT BID [facility] Last Admin: 03/22/22 08:24 Dose: 1 drop Allergies Allergies Allergy/AdvReac Type Severity Reaction Status Date / Time Penicillins Allergy Unknown Verified 03/20/22 10:15 procaine [From Novocain] Allergy Unknown Verified 03/20/22 10:15 Assessment & Plan Assessment & Plan (1) Cerebrovascular accident: Status: Acute Code(s): I63.9 - Cerebral infarction, unspecified (2) Cerebral infarction: Status: Acute Code(s): I63.9 - Cerebral infarction, unspecified (3) Dizziness: Status: Acute Code(s): R42 - Dizziness and giddiness (4) Glaucoma: Status: Acute Code(s): H40.9 - Unspecified glaucoma (5) HTN (hypertension): Status: Acute Code(s): I10 - Essential (primary) hypertension (6) Shoulder arthritis: Status: Acute Code(s): M19.019 - Primary osteoarthritis, unspecified shoulder (7) Adjustment disorder with depressed mood: Status: Acute Code(s): F43.21 - Adjustment disorder with depressed mood Plan The patient is an elderly female with a long history of several comorbidities admitted for CVA, presented herself very anxious and dysphoric in clear correlation with her psychosocial stressor in medical problems. The consult was order since the patient was very dysphoric and tearful. Diagnosis Adjustment disorder with depressed mood. CVA HTN Glaucoma Plan 1. Continue Klonopin p.r.n. to target anxiety. 2. The patient would benefit of a low dose of antidepressant to target dysphoria and anxiety start Zoloft 25 mg p.o. daily. 3. The patient needs to follow psychotherapy and medication management after she was referred to subacute rehab. 4. Reassessment as demand. Total time managing care of this patient today __30__ minutes. Patient educated on: diagnosis and therapeutic strategies Informed Consent: understands
--- NOTE | 2022-03-22 14:22 | P.DS_ITS ---
DS: Providers Provider Date of Service: 03/22/22 Date of admission: 03/20/22 12:25 Date of discharge: 03/22/22 Primary care physician: Yaneli Richards MD Consults: 03/20/22 12:24 Consult to Neurology Routine Consulting Provider: [facility] Reason for consultation: Right basal ganglia infarct 03/21/22 15:17 Consult to Psychiatry Routine Consulting Provider: Psych Covering Reason for consultation: anxiety/depression Has provider been notified: No Attending physician on discharge: Frank Nicole DS: Diagnosis Discharge Diagnosis (1) Cerebrovascular accident: Status: Acute (2) Cerebral infarction: Status: Acute (3) Dizziness: Status: Acute (4) Glaucoma: Status: Acute (5) HTN (hypertension): Status: Acute (6) Shoulder arthritis: Status: Acute (7) Adjustment disorder with depressed mood: Status: Acute DS: Summary Hospital Course Hospital Course: 82-year-old female with a PMH significant for?HTN, glaucoma, macular degeneration, blind in right eye, and 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 Patient states she woke this morning around 03:00 and she noticed that her left hand felt ?weird? and numb. ? Patient went to go to the bathroom and fell to the floor she tried to get out of bed due to left-sided weakness.? Patient then spent the next 4 hours pulling herself along on the floor to get to the phone and to the door to unlock it to let the paramedics in.? Patient states that she noticed the left side of her face felt numb and that she was slurring her words.? Patient also notes she has this left-sided chest pain which she feels is muscular in nature and related to pulling herself along on the floor with her arms.? Patient states that on 01/18/2022 she was at the optometrists when she became dizzy and nearly fainted when standing up to go into the exam room. Pt was diagnosed with vertigo by her PCP two days later and she's been nervous about a repeat episode ever since.? Patient denies any dizziness during today's episode.Pt states she still feels like the left side of her face feels weird and that she still occasionally slurs her words some.? Denies chest pressure, palpitations.? No shortness of breath.? Denies headache, new changes in vision.? No abdominal pain, nausea/vomiting, fever, chills.? Of note, pt had a bovine valve replacement for congenital defect in 2016.? Patient also states she has a history of chronic retinal bleeding and was told 20 years ago that she should not take aspirin. Pt is followed by channel cementer insole machine Dr. Britton in [place] and by front desk attendant Dr. Ayala in [place], [place]. In the ED patient mildly hypertensive at 151/60. Labs were significant for leukocytosis of 12.6 and elevated troponin 29.8. CXR showed no acute cardiopulmonary process. CT?of head found evidence of right basal ganglia infarct without hemorrhage or mass effect.? CTA of head and neck found possible evidence of an acute lacunar infarct in the setting of suspected stroke.? No stenosis of cervical carotid or vertebral arteries, no intracranial large vessel occlusion, no identifiable aneurysm, but did find a possible small meningioma over the left frontal convexity.? EKG demonstrates normal sinus rhythm without evidence of ST elevations or depressions. Pt will be admitted to the hospital for further workup and evaluation for stroke. Hospital course: Patient admitted because of falls and left-sided weakness: Further workup informed CT head and An MRI- has new cva(please see imaging section) . seen by neurology : recomended to add aspirin,statin. seen by Pt -recomended for rehab. leucocytosis resolved possible reactive . mild troponins flat , patient denies any chest pain,no ekg changes ,echo also seems fine. further workup outpatient. OA shoulder continue lidocaine patch and Tylenol. Anxiety: Seen by psych and added Zoloft in addition to her home regimen. plan continue aspirin,statin,moniter blood pressure -consider keeping permissive htn for 3-4 more days . mild troponins flat , patient denies any chest pain,no ekg changes ,echo also seems fine. further workup outpatient. We Above management discussed the patient in detail length- she understand and in agreement with the plan. Assessment and plan coordination time spent 50 minute. Time Spent with Patient Time attestation: Total time managing care of this patient today ____ minutes. Discharge coordination time: Greater than 30 minutes Quality: Safe Use of Opioids Does Pt have an Active Cancer Diagnosis on the Problem List?: No Quality: Stroke Does the patient have a stroke diagnosis?: No Physical Exam Vital Signs: Vital Signs: Last Vital Signs Temp 97.0 F 03/22/22 11:53 Pulse 75 03/22/22 11:53 Resp 17 03/22/22 11:53 BP 155/71 H 03/22/22 11:53 Pulse Ox 95 03/22/22 11:53 O2 Del Method 03/22/22 11:53 BMI result Body Mass Index 24.7 Appearance: Alert.? Oriented X3.? not in distress. cvs: rrr, [id number] , no murmur res: clear to auscultation ,no rhonchii or wheezing abd: no rebound or guarding ,nt, bs present. ext pulses present , no cyanosis. neuro: axo3 , nonfocal. DS: Data Data Completed and Pending Labs on day of discharge: Laboratory Results - last 24 hr 03/22/22 12:51 COVID-19 ([facility]) Negative COVID-19 Clin Com See Note Imaging Chest x-ray: Radiologist's impression: ITS Impressions Head CT 03/20/22 09:18 IMPRESSION: Findings consistent with right basal ganglia infarct. No hemorrhage or mass effect. This critical result was discussed with Dr. Mcfarland at 9:35 AM hours on March 20, 2022. It was ascertained that the content and urgency of the report was understood at the time of direct communication. Head/Neck CTA 03/20/22 09:25 IMPRESSION: As seen on prior imaging there is subtle loss of powers-white matter differentiation within the right lentiform nucleus indicating the possibility of an acute lacunar infarct in the setting of suspected stroke. There is no stenosis of the cervical carotid or vertebral arteries. No intracranial large vessel occlusion. No identifiable aneurysm or high flow vascular lesion. Incidentally there is a dome-shaped enhancing dural based mass over the left frontal convexity near the vertex measuring 0.6 cm in diameter most likely representing a small meningioma. This critical result was discussed with Dr Jeromy Mcfarland at 9:37 AM on 03/20/2022 and it was ascertained that the content and urgency of the report was understood at the time of direct communication. Chest X-Ray 03/20/22 09:36 IMPRESSION: No acute cardiopulmonary process. Brain MRI 03/20/22 14:32 IMPRESSION: - There is an acute infarct involving the posterior right putamen and the body of the right caudate. There is no mass effect and there is no hemorrhagic transformation. - There is global cerebral volume loss, there is mild chronic microangiopathy, there is a chronic lacunar infarct within the right frontal centrum semiovale. Shoulder X-Ray 03/21/22 11:40 IMPRESSION: Degenerative arthritic changes left shoulder. No visible acute fracture or dislocation seen. Discharge Plan Discharge Anticipated Discharge Date/Time: 03/22/22 14:08 Patient Disposition: Xfer SNF Discharge Diagnosis: cva Referrals: [facility] [Outside] - 1 Week Yaneli Richards MD [Primary Care Provider] - 1 Week Discharge Medications: New docusate sodium 100 mg Capsule 100 mg PO DAILY PRN (Reason: Constipation) Qty: 10 0RF atorvastatin 40 mg Tablet 40 mg PO BEDTIME Qty: 30 0RF sertraline [Zoloft] 25 mg tablet 25 mg PO DAILY Qty: 30 0RF acetaminophen 325 mg Tablet 650 mg PO Q6H PRN (Reason: Pain, Mild (Pain Scale 1-3)) Qty: 10 0RF aspirin 81 mg Tablet,Chewable 81 mg PO DAILY Qty: 30 0RF lidocaine [Lidocaine Pain Relief] 4 % Adhesive Patch,Medicated 1 patch transdermal DAILY Qty: 1 0RF Protocol: Apply to: Apply to: affected area Continued latanoprost 0.005 % drops 1 drp ophthalmic-Left BEDTIME clonazepam 0.5 mg tablet 1 tab PO BID PRN (Reason: Anxiety) calcium carbonate-vitamin D3 [Calcium + D] 600 mg-5 mcg (200 unit) Tablet 1 tab PO BID prednisolone acetate 1 % drops,suspension 1 drp ophthalmic-Right BID lisinopril 5 mg tablet 1 tab PO DAILY timolol maleate 0.5 % drops 1 drp ophthalmic-Left BID Discharge Orders: Discharge Order (Routine); Ordered 03/22/22 Ordered By: Frank Nicole Diet: Advance to usual diet Activity on Discharge: As tolerated Stand Alone Forms: Patient Portal Discharge page Care Plan Goals: Patient admitted because of falls and left-sided weakness: Further workup informed CT head and An MRI- has new cva . seen by neurology : recomended to add aspirin,statin. seen by Pt -recomended for rehab. Health Concerns: as above. Plan of Treatment: as above. Assessment: as above.
--- NOTE | 2022-03-22 16:37 | PM.PSYCN ---
History of Present Illness Date of Service: 03/22/21 Chief Complaint: left sided weakness Requesting physician: Frank Nicoel Discussed with referring provider: Yes Sources of Information: patient interviewed, chart reviewed and crisis/core team assessment reviewed Additional Sources of Information: met with patient; discussed w/ hospitalist; reviewed hospitalist and neurology progress notes HPI Narrative: Patient is a 82-year-old female admitted for CVA, with history of anxiety and other medical comorbidities.? Psychiatric consult placed to assess for medication management given patient's tearfulness on the floor. ?Patient reports that she has a history of anxiety but is never taking medications for it.? She agrees that she has some depression and anxiety given her medical comorbidities and worries about being able to take care of herself much longer.? She denies any SI at all.? However, she says she does not like taking medications and worries about whether an antidepressant would conflict with the other medications she is taking.? Patient said she will think about it but will discuss it with her primary care doctor if she is interested; she reiterates that at this time does not want any new medication management. Past Psychiatric History: Never admitted into the hospital no past history of psychiatric treatment, she tried twice psychotherapy in the last years but never followed. She received Klonopin by her current primary care physician. Medical Evaluation Reviewed: Yes [facility] Medical History Macular degeneration Retinal hemorrhage Surgical History Heart valve replaced Family History: Denies Social History: The patient is the 3rd of 4 children, her milestones were achieved at expected age she was raised by her parents. 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 She got and she lost her 12 years ago due to cancer. She has always highly functional and she retired a few years ago. Trauma History: Denies Diagnostics Vital Signs (24Hr): Vital Signs - 24 hr 03/21/22 19:17 03/22/22 00:00 03/22/22 07:18 Temperature 99.1 F 97.9 F 96.9 F Pulse Rate 65 64 67 Respiratory Rate 17 18 16 Blood Pressure 147/70 H 135/63 143/64 H Pulse Oximetry 95 94 96 Oxygen Delivery Method Room Air Room Air Room Air 03/22/22 11:17 03/22/22 11:53 Temperature 97.0 F Pulse Rate 67 75 Respiratory Rate 17 Blood Pressure 143/64 H 155/71 H Pulse Oximetry 96 95 Oxygen Delivery Method Room Air BMI result Body Mass Index 24.7 Labs 03/20/22 15:48 03/21/22 06:13 Labs: Laboratory Results - last 48 hr 03/21/22 03/21/22 03/21/22 06:13 06:13 12:28 Sodium 141 Potassium 4.0 Chloride 108 Carbon Dioxide 22 Anion Gap 15 BUN 18 H Creatinine 0.80 Estim Creat Clear Calc 43.7 Estimated GFR > 60 Random Glucose 108 Calcium 9.3 Troponin I High Sens 12.9 D Triglycerides 98 Cholesterol 139 LDL Cholesterol, Calc 57 HDL Cholesterol 63 COVID-19 ([facility]) COVID-19 Clin Com 03/22/22 12:51 Sodium Potassium Chloride Carbon Dioxide Anion Gap BUN Creatinine Estim Creat Clear Calc Estimated GFR Random Glucose Calcium Troponin I High Sens Triglycerides Cholesterol LDL Cholesterol, Calc HDL Cholesterol COVID-19 ([facility]) Negative COVID-19 Clin Com See Note Imaging Radiology Impressions: ITS Impressions Head CT 03/20/22 09:18 IMPRESSION: Findings consistent with right basal ganglia infarct. No hemorrhage or mass effect. This critical result was discussed with Dr. Mcfarland at 9:35 AM hours on March 20, 2022. It was ascertained that the content and urgency of the report was understood at the time of direct communication. Head/Neck CTA 03/20/22 09:25 IMPRESSION: As seen on prior imaging there is subtle loss of powers-white matter differentiation within the right lentiform nucleus indicating the possibility of an acute lacunar infarct in the setting of suspected stroke. There is no stenosis of the cervical carotid or vertebral arteries. No intracranial large vessel occlusion. No identifiable aneurysm or high flow vascular lesion. Incidentally there is a dome-shaped enhancing dural based mass over the left frontal convexity near the vertex measuring 0.6 cm in diameter most likely representing a small meningioma. This critical result was discussed with Dr Jeromy Mcfarland at 9:37 AM on 03/20/2022 and it was ascertained that the content and urgency of the report was understood at the time of direct communication. Chest X-Ray 03/20/22 09:36 IMPRESSION: No acute cardiopulmonary process. Brain MRI 03/20/22 14:32 IMPRESSION: - There is an acute infarct involving the posterior right putamen and the body of the right caudate. There is no mass effect and there is no hemorrhagic transformation. - There is global cerebral volume loss, there is mild chronic microangiopathy, there is a chronic lacunar infarct within the right frontal centrum semiovale. Shoulder X-Ray 03/21/22 11:40 IMPRESSION: Degenerative arthritic changes left shoulder. No visible acute fracture or dislocation seen. Mental Status Exam Mental Status Exam Narrative: Pt is alert and oriented; behavior is cooperative, friendly and calm, intermittently tearful when talking about fears of taking care of herself; dressed in hospital attire with unkempt hair but adequate hygiene; mood is described as anxious and affect congruent; eye contact appropriate; Speech is normal rate, volume and prosody and not pressured; no psychomotor agitation/retardation present; thought process is organized and goal directed; Thought content is on tx; otherwise pertinent to relevant topics and without any delusional content, paranoid ideations or grandiosity; denies any SI/HI. There is no evidence of perceptual disturbance. Patients insight and judgment appear intact. Medications Medications Current Medications Acetaminophen (Acetaminophen 325 Mg Tablet) 650 mg PO Q6H PRN PRN Reason: Pain, Mild (Pain Scale 1-3) Last Admin: 03/21/22 13:00 Dose: 650 mg Acetaminophen (Acetaminophen 325 Mg Tablet) 650 mg PO Q6H PRN PRN Reason: arm pain Aspirin (Aspirin 81 Mg Tab.Chew) 81 mg PO DAILY [facility] Last Admin: 03/22/22 08:23 Dose: 81 mg Atorvastatin Calcium (Atorvastatin Calcium 40 Mg Tablet) 40 mg PO BEDTIME [facility] Last Admin: 03/21/22 21:02 Dose: Not Given Calcium Carbonate/Cholecalciferol (Calcium + Vitamin D 250 Mg Tablet) 500 mg PO BID [facility] Last Admin: 03/22/22 08:23 Dose: 500 mg Clonazepam (Clonazepam 0.5 Mg Tablet) 0.5 mg PO BID PRN PRN Reason: Anxiety Last Admin: 03/21/22 23:39 Dose: 0.5 mg Docusate Sodium (Docusate Sodium 100 Mg Capsule) 100 mg PO DAILY PRN PRN Reason: Constipation Latanoprost (Latanoprost 0.005 % Ophth Maris 2.5 Ml Drops) 1 drop EYE-LEFT BEDTIME [facility] Last Admin: 03/21/22 21:00 Dose: 1 drop Lidocaine (Lidocaine 4 % Patch Adh..Patch) 1 patch TRANSDERMA DAILY [facility]; Protocol Last Admin: 03/22/22 08:24 Dose: Not Given Lisinopril (Lisinopril 5 Mg Tablet) 5 mg PO DAILY [facility]; Protocol Last Admin: 03/22/22 08:23 Dose: 5 mg Ondansetron HCl (Ondansetron Hcl 4 Mg/2 Ml Vial) 4 mg IVPUSH Q8H PRN PRN Reason: Nausea and Vomiting Pharmacy Consult (Consult Rx Perform Med Rec) 1 each MISCELLANE ONCE PRN PRN Reason: Consult order Prednisolone Acetate (Prednisolone Acetate 1 % Oph Susp 5 Ml Drpbtl) 1 drop EYE-RIGHT BID [facility] Last Admin: 03/22/22 08:24 Dose: 1 drop Timolol Maleate (Timolol Maleate 0.5 % Oph Maris 5 Ml Drbtl) 1 drop EYE-LEFT BID [facility] Last Admin: 03/22/22 08:24 Dose: 1 drop Allergies Allergies Allergy/AdvReac Type Severity Reaction Status Date / Time Penicillins Allergy Unknown Verified 03/20/22 10:15 procaine [From Novocain] Allergy Unknown Verified 03/20/22 10:15 Assessment & Plan Assessment & Plan (1) Adjustment disorder with depressed mood: Status: Acute Code(s): F43.21 - Adjustment disorder with depressed mood (2) Cerebral infarction: Status: Acute Code(s): I63.9 - Cerebral infarction, unspecified Plan Patient is a 82-year-old female admitted for CVA, with history of anxiety and other medical comorbidities.? Psychiatric consult placed to assess for medication management given patient's tearfulness on the floor. ? Patient acknowledges that she is dealing with anxiety some depression regarding how to handle getting older and dealing with medical comorbidities.? No SI at all.? She does not want any medications for depression at this time.? She says she will discuss it with her outpatient PCP if she changes her mind. F/O pt with mild/mod depression and anxiety but stable and does not want psychotropic medication Pt appropriate to f/u with outpt provider Total time managing care of this patient today ____ minutes. Patient educated on: diagnosis and medication risk/benefits Informed Consent: understands
== END 2022-03-22 17:30 | DRG 65 ==
LOC: HO.ED 10:31 → HO.EDOVER 12:45 → HO.IMC 15:07
PROVIDERS: Admitting Provider Student in an Organized Health Care Education/Training Program; Emergency Provider Emergency Medicine; PCP Family Medicine; Visit Provider Internal Medicine
DX: I63.81 Other cerebral infarction due to occlusion or stenosis of small artery (principal); I24.8 Other forms of acute ischemic heart disease; R29.810 Facial weakness; Z66 Do not resuscitate; R20.0 Anesthesia of skin; I10 Essential (primary) hypertension; D72.829 Elevated white blood cell count, unspecified; M19.012 Primary osteoarthritis, left shoulder; R29.701 NIHSS score 1; F41.9 Anxiety disorder, unspecified; F43.21 Adjustment disorder with depressed mood; H40.9 Unspecified glaucoma; H35.30 Unspecified macular degeneration; Z20.822 Contact with and (suspected) exposure to COVID-19; Z95.3 Presence of xenogenic heart valve; Z87.891 Personal history of nicotine dependence; Z88.0 Allergy status to penicillin; Z79.899 Other long term (current) drug therapy
CPT/HCPCS: 36415; 70450; 70496; 70498; 70551; 71045; 73030; 80048; 80053; 80061; 82947; 84484; 85025; 85027; 85610; 85730; 87635; 93005; 93306; 97116; 97162; 97166; 99285; Q9957; Q9967

== ENCOUNTER 2023-03-14 13:34 | Outpatient (AMB) | payer MEDICARE, SELFPAY ==
--- NOTE | 2023-03-14 13:36 | MHC.OFFWIV ---
Intake Vital Signs 03/14/23 13:38 Height 5 ft Weight 112 lb BMI 21.9 BP 140/60 H Blood Pressure Location Rt brachial Position Sitting Pulse 79 Pulse Source Pulse Oximeter Temp 98.2 F Temp Source Oral Pulse Oximetry (%) 95 Oxygen Delivery Method Room Air Intake Visit Reasons: EP cough fever diarhea congestion body aches Intake Note: pt is here today for cough fever diarrhea congestion body aches Patient Tobacco Use Status: Former Tobacco user Allergies Penicillins Allergy (Verified 03/14/23 13:39) Unknown procaine [From Novocain] Allergy (Verified 03/14/23 13:39) Unknown Do you need a note to return to daycare/school/sports/work: No HPI HPI Comments History of Present Illness Details 83 y/o female presents to walk in clinic with c/o diarrhea, cough, fatigue, nasal/chest congestion x few days. Pt reports feeling better today, but still has a cough associated with chest congestion. Denies fevers, chills, nausea or vomiting. PFSH Medical History Macular degeneration Retinal hemorrhage Surgical History Heart valve replaced Family History (Updated 03/20/22 @ 12:44 by SAIMA Velazquez) Sister Stroke Mother Acute CHF Social History (Updated 03/20/22 @ 12:45 by SAIMA Velazquez) Household Members: None Housing: House Do you presently have visiting nurse or other home services: No Alcohol intake: never Patient Tobacco Use Status: Former Tobacco user Cigarette Packs Per Day: 2 Years Smoked: 40 Second Hand Smoke Exposure: No service: No Current occupational status: retired Review of Systems Const All systems reviewed & are unremarkable except as noted in HPI and below Physical Exam Vital Signs: Last Vital Signs Temp 98.2 F 03/14/23 13:38 Pulse 79 03/14/23 13:38 BP 140/60 H 03/14/23 13:38 Pulse Ox 95 03/14/23 13:38 Oxygen Delivery Method Room Air 03/14/23 13:38 BMI result Body Mass Index 21.9 Const General: comfortable and no acute distress HEENT Head: Yes normocephalic Ears: external ears normal and TM's normal bilaterally General nose exam: Normal nasal mucous membranes and turbinates present Face and sinus: Yes sinuses nontender Throat: Yes posterior oropharynx normal Resp Effort & Inspection: normal respiratory effort Auscultation: clear to auscultation bilaterally Cardio Rate: regular rate Rhythm: regular rhythm Assessment & Plan Assessment & Plan (1) Chest congestion: Code(s): R09.89 - Other specified symptoms and signs involving the circulatory and respiratory systems Plan: - Warm fluids with honey - Acetaminophen for pain relief - OTC cold remedies Orders: Orders SARS-CoV2/FLU/RSV Today R09.89 - Other specified symptoms and signs involving the circulatory and respiratory systems Medications: New dextromethorphan polistirex ER (12-Hour Cough Relief) 10 mL PO Q12H PRN 89 mL 0RF cough R09.89 - Other specified symptoms and signs involving the circulatory and respiratory systems Refilled acetaminophen 650 mg (2 x 325 mg) PO Q6H PRN 10 tabs 0RF Pain, Mild (Pain Scale 1-3) Coding Level of Care Code Est Pt Level 3 (04253) Diagnoses Chest congestion R09.89 Time Spent (min) 15
[2023-03-14 13:38] VITALS: BP 140/60; PULSE 79; TEMP 36.8; O2SAT 95; BMI 21.9
== END 2023-03-14 16:09 | disposition home or self-care (01) ==
PROVIDERS: PCP Family Medicine; Visit Provider Nurse Practitioner Family
DX: R09.89 Other specified symptoms and signs involving the circulatory and respiratory systems (principal)
CPT/HCPCS: 99213

== ENCOUNTER 2023-03-14 17:04 | Outpatient (REF) | payer MEDICARE, SELFPAY ==
[2023-03-15 05:22] LABS: Influenza A PCR NEGATIVE (Negative); Influenza B PCR NEGATIVE (Negative); Resp Syncy Virus RNA Qual PCR NEGATIVE (Negative); SARS COV2 PCR INHOUSE NEGATIVE (Negative)
== END 2023-03-14 17:05 | disposition home or self-care (01) ==
LOC: HO.LNP 17:04
PROVIDERS: Visit Provider Nurse Practitioner Family
DX: Z11.52 Encounter for screening for COVID-19 (principal); Z20.822 Contact with and (suspected) exposure to COVID-19; R09.89 Other specified symptoms and signs involving the circulatory and respiratory systems
CPT/HCPCS: 0241U

== ENCOUNTER 2023-03-23 05:33 | Inpatient (IN) | payer MEDICARE, SELFPAY ==
[2023-03-23] VITALS (14 sets, daily range): BP systolic 130–170; BP diastolic 48–96; PULSE 74–112; RESP 18–32; TEMP 23.8–38.4; O2SAT 90–96; BMI 23.3
--- NOTE | ~2023-03-23 | XR_ITS ---
EXAMINATION: XR CHEST CLINICAL INFORMATION: Pneumonia COMPARISON: Chest x-ray on 03/30/2023 TECHNIQUE: Frontal view of the chest was obtained. FINDINGS: vascularity. LUNGS: Persistent extensive wedge-shaped airspace disease with air bronchograms is seen filling the right upper lobe. Additional patchy airspace disease is seen in lateral left upper lobe and left lower lobe, superimposed on background of reticular interstitial prominence. Predominantly streaky alveolar infiltrates are seen in the right lung base. No pneumothorax is seen. None. Median sternotomy wire loops and left atrial appendage clipping device are again visualized. Unchanged advanced left glenohumeral joint osteoarthritis with marked loss of joint space, left humeral head ring osteophyte formation is seen. XR/XR chest 1V IMPRESSION: 1. Persistent multifocal bronchopneumonia, but interval decrease in extent of right upper lobe, lateral left upper and left lower lobe lung infiltrates, interval resolution of alveolar infiltrates in right lower lobe, compatible with partially resolved pneumonia. 2. Unchanged status post median sternotomy and left atrial appendage clipping. 3. Unchanged advanced left glenohumeral joint osteoarthritis.
--- NOTE | ~2023-03-23 | CT_ITS ---
EXAMINATION: CT CHEST WITHOUT CONTRAST CLINICAL INFORMATION: Hypoxia COMPARISON: None available. TECHNIQUE: Multidetector volumetric CT imaging of the chest was done. Axial MIP volume rendering provided. Sagittal and coronal reformatted images were obtained. This CT examination was performed using dose optimization techniques as appropriate, variously including the following: *Automated exposure control *Adjustment of mA and/or kV according to patient size (this includes techniques or standardized protocols for targeted exams where dose is matched to indication/reason for exam; i.e. extremities or head) *Use of iterative reconstruction technique DLP: 106 mGy-cm FINDINGS: MEDICAL PHYSICS PROFESSOR: Inflated lungs with diffuse haziness throughout both lungs. LUNGS: There is diffuse patchy airspace opacities seen in both upper lobes and both lower lobes dependent segments including lingula consistent with multi lobar infiltrates. MEDIASTINUM: Thyroid lobes are symmetrical and normal. The central trachea and bronchi are widely patent. Heart size and the great vessels are normal caliber. There is an aortic valve stent in place. There are reactive moderate to large mediastinal lymph nodes. The largest precarinal lymph node measures 2.2 x 2.2 cm in axial image 22/3. Also visualized is a left atrial appendage clip. CORONARY ARTERY CALCIFICATION: There is moderate coronary artery calcifications present. There is no pericardial effusion. PLEURA: There are small bilateral pleural effusions. AXILLA: No abnormal size axillary lymph nodes seen. The chest wall is unremarkable. UPPER ABDOMEN: Visualized liver, spleen, pancreas and bilateral adrenal glands are unremarkable. OSSEOUS STRUCTURES: No aggressive lytic or sclerotic process. There are median sternotomy sutures from previous intervention. CT/CT chest wo IV con IMPRESSION: 1. Multi lobar infiltrates. 2. Small bilateral pleural effusions. 3. Moderate size abnormal reactive mediastinal lymph nodes to infection. Fleischner guidelines were followed.
--- NOTE | ~2023-03-23 | XR_ITS ---
EXAMINATION: XR CHEST CLINICAL INFORMATION: Persistent hypoxia. COMPARISON: Chest x-ray dated 03/26/2023 and several older exams. CT scan of the chest dated 03/27/2023. TECHNIQUE: AP portable view of the chest was obtained. FINDINGS: EKG leads overlie the chest. The patient is status post median sternotomy. Atrial appendage U clip is seen in place and aortic valve replacement is noted. The cardiomediastinal silhouette is within normal limits in size. Calcification of the aortic arch is seen. There are extensive patchy partially confluent airspace opacities seen throughout the lungs, most prominent in the right upper lobe and left lower lobe with associated air bronchograms and small effusions, unchanged from the prior exam. No pneumothorax. Diffuse osteopenia. Degenerative changes in the left glenohumeral and acromioclavicular joint seen. Mild convex left thoracolumbar scoliosis. Prominent spurring of the lateral masses in the mid and lower cervical spine. XR/XR chest 1V IMPRESSION: No significant change in diffuse bilateral airspace opacities and small effusions. Findings are consistent with multifocal pneumonia. Close clinical correlation and follow-up is recommended.
--- NOTE | ~2023-03-23 | XR_ITS ---
EXAMINATION: XR CHEST CLINICAL INFORMATION: Difficulty breathing. Pneumonia. COMPARISON: Earlier 03/26/2023 exam TECHNIQUE: 2 views of the chest were obtained. FINDINGS: Extensive patchy bilateral consolidations and infiltrates are stable. Heart size normal. Pulmonary vessels cannot clearly be delineated. There is degenerative change both shoulder joints. Sternal wires are present as is a prosthetic cardiac valve and atrial clip. XR/XR chest 2V IMPRESSION: Stable bilateral infiltrates.
--- NOTE | ~2023-03-23 | XR_ITS ---
EXAMINATION: XR CHEST CLINICAL INFORMATION: Cough and chest pain. COMPARISON: 03/20/2022. TECHNIQUE: Frontal view of the chest was obtained. FINDINGS: The cardiomediastinal silhouette is stable. There has been a previous median sternotomy. There are diffuse bilateral infiltrates. The costophrenic angles appear to be minimally blunted. The bony structures are osteopenic. The soft tissues are unremarkable. XR/XR chest 1V IMPRESSION: Diffuse bilateral infiltrates most consistent with pneumonia.
--- NOTE | ~2023-03-23 | XR_ITS ---
EXAMINATION: XR CHEST CLINICAL INFORMATION: Hypoxia. COMPARISON: 03/23/2023 TECHNIQUE: Frontal view of the chest was obtained. FINDINGS: The cardiomediastinal silhouette is stable. There has been a previous median sternotomy. Bilateral infiltrates are again seen similar to previous. There is blunting of the costophrenic angles. The bony structures are osteopenic. The soft tissues are unremarkable. XR/XR chest 1V IMPRESSION: No significant interval change in bilateral infiltrates.
--- NOTE | 2023-03-23 05:47 | ECG_ITS ---
Test Reason : CHEST PAIN Blood Pressure : / mmHG Vent. Rate : 098 BPM Atrial Rate : 098 BPM P-R Int : 148 ms QRS Dur : 080 ms QT Int : 368 ms P-R-T Axes : 056 -09 052 degrees QTc Int : 469 ms Normal sinus rhythm Possible Left atrial enlargement Minimal voltage criteria for LVH, may be normal variant ( R in aVL ) Borderline ECG When compared with ECG of 21-MAR-2022 11:17, No significant change was found Referred By: Bartolo Brito Electronically Signed By:DARRYL JHAVERI
--- NOTE | 2023-03-23 05:48 | ED_ITS ---
HPI - SOB/Dyspnea General Chief Complaint: Upper Respiratory Symptoms Stated Complaint: sob Time Seen by Provider: 03/23/23 05:48 Source: patient Mode of arrival: EMS Limitations: no limitations History of Present Illness HPI Narrative: Patient with no known lung condition status post bioprosthetic aortic valve replacement no history of CHF been sick for last 2 weeks with cough seen at urgent Care on 03/14 flu COVID RSV negative was saturating 86% at room air when EMS arrived patient has been coughing a lot mostly dry patient also had watery stool last 3 days 2 to 3 times a day brownish in Related Data Home Medications Medication Instructions Recorded Confirmed calcium carbonate 600 mg-vitamin 1 tab PO BID 03/20/22 03/20/22 D3 5 mcg (200 unit) tablet clonazepam 0.5 mg tablet 0.5 tab PO DAILY PRN Anxiety 03/20/22 03/20/22 latanoprost 0.005 % eye drops 1 drp ophthalmic-Left BEDTIME 03/20/22 03/20/22 lisinopril 5 mg tablet 1 tab PO DAILY 03/20/22 03/20/22 prednisolone acetate 1 % eye 1 drp ophthalmic-Right DAILY 03/20/22 03/20/22 drops,suspension timolol maleate 0.5 % eye drops 1 drp ophthalmic-Left BID 03/20/22 03/20/22 diclofenac sodium 1 % topical gel 2 g topical QID PRN Pain 03/23/23 ibuprofen 600 mg tablet 600 mg PO Q6H PRN pain 03/23/23 Previous Rx's Medication Instructions Recorded aspirin 81 mg chewable tablet 81 mg PO DAILY #30 tabs 03/22/22 atorvastatin 40 mg tablet 40 mg PO BEDTIME #30 tabs 03/22/22 docusate sodium 100 mg capsule 100 mg PO DAILY PRN Constipation 03/22/22 #10 caps lidocaine 4 % topical patch 1 patch transdermal DAILY #1 ea 03/22/22 (Lidocaine Pain Relief) acetaminophen 325 mg tablet 650 mg (2 x 325 mg) PO Q6H PRN 03/15/23 Pain, Mild (Pain Scale 1-3) #10 tabs dextromethorphan polistirex 30 10 ml PO Q12H PRN cough #89 mL 03/15/23 mg/5 mL oral susp ext.release 12hr (12-Hour Cough Relief) Allergies Allergy/AdvReac Type Severity Reaction Status Date / Time Penicillins Allergy Unknown Verified 03/14/23 13:39 procaine [From Novocain] Allergy Unknown Verified 03/14/23 13:39 [facility] Past Medical History Medical History Macular degeneration Retinal hemorrhage Surgical History Heart valve replaced Family History Family History (Updated 03/20/22 @ 12:44 by SAIMA Velazquez) Sister Stroke Mother Acute CHF Social History Social History (Updated 03/20/22 @ 12:45 by SAIMA Velazquez) Household Members: None Housing: House Do you presently have visiting nurse or other home services: No Alcohol intake: current Alcohol intake frequency: holidays/special occasions only Alcohol type: wine Patient Tobacco Use Status: Former Tobacco user Cigarette Packs Per Day: 2 Years Smoked: 40 Smoked in Last 30 Days: No Second Hand Smoke Exposure: No Use of substances other than those prescribed or required for medical reasons: No Advance Directives: No Advance Directives Information Provided: No service: No Current occupational status: retired Physical Exam 2 Vital Signs: Vital Signs: Last Vital Signs Temp 98.3 F 03/23/23 07:18 Pulse 91 03/23/23 07:18 Resp 22 H 03/23/23 07:18 BP 141/54 H 03/23/23 07:18 Pulse Ox 93 03/23/23 07:18 O2 Del Method Nasal Cannula 03/23/23 07:18 O2 Flow Rate 3 03/23/23 07:18 Oxygen Flow Rate 4 03/23/23 06:08 BMI result Body Mass Index 23.3 Appearance: Alert. Oriented X3. No acute distress. Eyes: pallor+ No Nystagmus ENT: Pharynx normal. Oral Mucosa moist Neck: Normal inspection. Neck supple. CVS: Normal heart rate and rhythm. Pulses normal. Respiratory: No respiratory distress. Equal air entry bilateral, bilateral crackles++ Abdomen: Soft and nontender. Bowel sounds are present, rectal: Brown stool Skin: Skin warm and dry. Normal skin color. Normal skin turgor. Extremities: No lower extremity edema. No calf tenderness Neuro: Oriented X 3. No motor deficit. Medications Administered Discontinued Medications Generic Name Dose Route Start Last Admin Trade Name Freq PRN Reason Stop Dose Admin Acetaminophen 650 mg 03/23/23 06:34 03/23/23 06:41 Acetaminophen 325 Mg Tablet PO 03/23/23 06:35 650 mg ONCE ONE Administration Albuterol/Ipratropium 3 ml 03/23/23 06:09 03/23/23 06:30 Albuterol/Iprat 2.5/0.5mg 3 Ml Ampul.Neb INHALE 03/23/23 06:10 3 ml ONCE ONE Administration Sodium Chloride 1,000 mls @ 999 mls/hr 03/23/23 06:07 03/23/23 07:55 Ns IV 03/23/23 07:07 Infused .Q1H1M ONE Infusion Ceftriaxone Sodium 1 gm/ 50 mls @ 100 mls/hr 03/23/23 06:07 03/23/23 07:23 Sodium Chloride IV 03/23/23 06:36 Infused ONCE ONE Infusion Azithromycin 500 mg/ Sodium 250 mls @ 125 mls/hr 03/23/23 06:07 03/23/23 07:47 Chloride IV 03/23/23 08:06 125 mls/hr ONCE ONE Administration Medical Decision Making Medical Decision Making [facility] Narrative: Patient with bilateral pneumonia with significant anemia and hypoxic at room air, stool is brownin color but guaiac positive will give blood transfusion IV antibiotics were given admit for further evaluation Differential Diagnosis Differential Diagnoses: The differential diagnosis associated with the presentation includes Pneumonia/CHF/anemia Admission/Observation Consideration of admission/observation: Escalation of care including admission/observation considered Consult Healthcare Provider Management of the patient was discussed with: Hospitalist Lab Data [facility] Lab Attestation statement: I reviewed the patient's lab results. 03/23/23 05:57 03/23/23 05:57 Labs: Lab Results 03/23/23 03/23/23 03/23/23 Range/Units 05:57 06:29 07:21 WBC 17.0 H (4.8-10.8) X10*3/uL RBC 2.36 L D (4.20-5.50) X10*6/uL Hgb 7.5 L D (12.0-16.0) g/dl Hct 22.8 L D (37.0-47.0) % MCV 96.6 (80.0-98.0) fL MCH 31.8 (27.0-33.0) pg MCHC 32.9 (31.0-35.0) g/dl RDW 16.4 H (11.0-16.0) % Plt Count 440 H D (160-400) X10*3/uL MPV 11.1 (9.4-12.3) fL Immature Gran % (Auto) 2.8 H (0.0-0.4) % Neut % (Auto) 81.8 H (45-73) % Lymph % (Auto) 6.5 L (20-40) % Ogle % (Auto) 5.8 (2-11) % Eos % (Auto) 2.5 (0-4) % Baso % (Auto) 0.6 (0-2) % Lymph # (Auto) 1.1 L (1.2-4.9) X10*3/uL Ogle # (Auto) 1.0 (0.1-1.2) X10*3/uL Eos # (Auto) 0.4 (0.0-0.4) X10*3/uL Baso # (Auto) 0.1 (0.0-0.2) X10*3/uL Abs Immat Gran (auto) 0.48 H (0.00-0.03) X10*3/uL Absolute Neuts (auto) 13.9 H (2.0-8.3) x10*3/uL Absolute Nucleated RBC 0.030 H (0.0-0.012) X10*3/uL Nucleated RBC % (auto) 0.2 (0.0-0.2) /100WBC Sodium 138 (135-145) mmol/L Potassium 4.1 (3.3-5.1) mmol/L Chloride 105 (96-108) mmol/L Carbon Dioxide 22 (22-29) mmol/L Anion Gap 15 (12-20) BUN 12 (9-16) mg/dL Creatinine 0.72 (0.5-1.4) mg/dL Estim Creat Clear Calc 43.3 Estimated GFR > 60 Random Glucose 197 H (60-115) mg/dL Lactic Acid 1.4 (0.5-2.0) mmol/L Calcium 8.9 (8.4-10.2) mg/dL Total Bilirubin 0.5 (0.0-1.0) mg/dL AST 63 H (5-31) U/L ALT 57 H (0-31) U/L Alkaline Phosphatase 104 (39-117) U/L Troponin I High Sens 39.5 H D (<3.5-17.0) ng/L B-Natriuretic Peptide 635 H (<100) pg/mL Total Protein 6.5 (6.5-8.0) g/dL Albumin 2.8 L (3.5-5.0) g/dL Stool Occult Blood POSITIVE (NEGATIVE) Influenza Type A (PCR) NEGATIVE (Negative) Influenza Type B (PCR) NEGATIVE (Negative) RSV RNA Qual (PCR) NEGATIVE (Negative) SARS-CoV-2 RNA (RT-PCR) NEGATIVE (Negative) Blood Type Antibody Screen Crossmatch 03/23/23 Range/Units 07:31 WBC (4.8-10.8) X10*3/uL RBC (4.20-5.50) X10*6/uL Hgb (12.0-16.0) g/dl Hct (37.0-47.0) % MCV (80.0-98.0) fL MCH (27.0-33.0) pg MCHC (31.0-35.0) g/dl RDW (11.0-16.0) % Plt Count (160-400) X10*3/uL MPV (9.4-12.3) fL Immature Gran % (Auto) (0.0-0.4) % Neut % (Auto) (45-73) % Lymph % (Auto) (20-40) % Ogle % (Auto) (2-11) % Eos % (Auto) (0-4) % Baso % (Auto) (0-2) % Lymph # (Auto) (1.2-4.9) X10*3/uL Ogle # (Auto) (0.1-1.2) X10*3/uL Eos # (Auto) (0.0-0.4) X10*3/uL Baso # (Auto) (0.0-0.2) X10*3/uL Abs Immat Gran (auto) (0.00-0.03) X10*3/uL Absolute Neuts (auto) (2.0-8.3) x10*3/uL Absolute Nucleated RBC (0.0-0.012) X10*3/uL Nucleated RBC % (auto) (0.0-0.2) /100WBC Sodium (135-145) mmol/L Potassium (3.3-5.1) mmol/L Chloride (96-108) mmol/L Carbon Dioxide (22-29) mmol/L Anion Gap (12-20) BUN (9-16) mg/dL Creatinine (0.5-1.4) mg/dL Estim Creat Clear Calc Estimated GFR Random Glucose (60-115) mg/dL Lactic Acid (0.5-2.0) mmol/L Calcium (8.4-10.2) mg/dL Total Bilirubin (0.0-1.0) mg/dL AST (5-31) U/L ALT (0-31) U/L Alkaline Phosphatase (39-117) U/L Troponin I High Sens (<3.5-17.0) ng/L B-Natriuretic Peptide (<100) pg/mL Total Protein (6.5-8.0) g/dL Albumin (3.5-5.0) g/dL Stool Occult Blood (NEGATIVE) Influenza Type A (PCR) (Negative) Influenza Type B (PCR) (Negative) RSV RNA Qual (PCR) (Negative) SARS-CoV-2 RNA (RT-PCR) (Negative) Blood Type O Positive Antibody Screen NEGATIVE Crossmatch See Detail Independent Interpretation I performed an independent interpretation of an: EKG and Plain X-Ray Interpretation: Normal sinus rhythm heart rate 98 beats per minute normal interval LVH no acute ST T wave changes no acute ischemia Radiology Impression Discussion of test interpretation with radiology: I have reviewed the radiologist's reading. Discharge Plan Discharge Clinical Impression: Bilateral pneumonia, Acute hypoxic respiratory failure, CHF (congestive heart failure), Severe anemia, Guaiac positive stools Patient Disposition: Admitted As Inpatient
[2023-03-23 06:05] LABS: MANUAL DIFF FLAG NO
[2023-03-23 06:20] LABS: Alanine Aminotransferase 57 U/L (0-31); Albumin Level 2.8 g/dL (3.5-5.0); Alkaline Phosphatase 104 U/L (39-117); Anion Gap 15 (12-20); Aspartate Amino Transferase 63 U/L (5-31); Bilirubin Total 0.5 mg/dL (0.0-1.0); Blood Urea Nitrogen 12 mg/dL (9-16); Calcium 8.9 mg/dL (8.4-10.2); Carbon Dioxide 22 mmol/L (22-29); Chloride 105 mmol/L (96-108); Creatinine Clr Calc Pharmacy 43.3; Estimated Glomerular Filt Rate > 60; Glucose Random 197 mg/dL (60-115); Potassium 4.1 mmol/L (3.3-5.1); Sodium 138 mmol/L (135-145); Total Protein 6.5 g/dL (6.5-8.0)
--- NOTE | 2023-03-23 06:23 | PC.NURSE ---
Patient BIBA from home for evaluation of non-productive cough, worsening SOB, chest pain, headache, pounding discomfort in left ear since 2 weeks ago. She states she was seen at the Clinic and was advised to get OTC cough medication. Patient denies history of COPD/Asthma. O2 Sat 86% RA at home, EMS applied NC at 3 LPM with improvement noted to 93-94%. EMS established 20 G IV line in L AC. Patient changed into a hospital attire, EKG completed, normal sinus rhythm, temp 101.1 oral, HR, 87, RR 30, O2 Sat 94% on 3 LPM, BP 141/50. Patient placed on monitoring and evaluation advisor, labs drawn per MD order and sent to lab for processing. Call fletcher placed within patient's reach. RT at bedside administering nebulizer treatment.
[2023-03-23 06:25] LABS: Basophils Absolute Auto 0.1 X10*3/uL (0.0-0.2); Basophils Percent Auto 0.6 % (0-2); Eosinophils Absolute Auto 0.4 X10*3/uL (0.0-0.4); Eosinophils Percent Auto 2.5 % (0-4); Hematocrit 22.8 % (37.0-47.0); Hemoglobin 7.5 g/dl (12.0-16.0); Imm Gran Abs Auto 0.48 X10*3/uL (0.00-0.03); Imm Gran Pct Auto 2.8 % (0.0-0.4); Lymphocytes Absolute Auto 1.1 X10*3/uL (1.2-4.9); Lymphocytes Percent Auto 6.5 % (20-40); Mean Corpuscular HGB Conc 32.9 g/dl (31.0-35.0); Mean Corpuscular Hemoglobin 31.8 pg (27.0-33.0); Mean Corpuscular Volume 96.6 fL (80.0-98.0); Mean Platelet Volume 11.1 fL (9.4-12.3); Monocytes Percent Auto 5.8 % (2-11); NRBC Pct Auto 0.2 /100WBC (0.0-0.2); Neutrophils Absolute Auto 13.9 x10*3/uL (2.0-8.3); Neutrophils Percent Auto 81.8 % (45-73); Platelet Count 440 X10*3/uL (160-400); Red Blood Count 2.36 X10*6/uL (4.20-5.50); Red Cell Distribution Width 16.4 % (11.0-16.0)
[2023-03-23 06:26] LABS: Troponin-I High Sensitivity 39.5 ng/L (<3.5-17.0)
[2023-03-23] MEDS: Albuterol/Iprat 2.5/0.5MG 3 ML AMPUL.NEB INHALE (06:30)
[2023-03-23] MEDS: 0.9 % Sodium Chloride 1,000 ML 999 ML IV (06:31)
[2023-03-23] MEDS: cefTRIAXone sodium 1 GM in 0.9 % Sodium Chloride 50 ML IV (06:40)
[2023-03-23] MEDS: Acetaminophen 325 MG TABLET 650 MG PO (06:41)
[2023-03-23 06:42] LABS: Influenza A PCR NEGATIVE (Negative); Influenza B PCR NEGATIVE (Negative); Resp Syncy Virus RNA Qual PCR NEGATIVE (Negative); SARS COV2 PCR INHOUSE NEGATIVE (Negative)
[2023-03-23 06:44] LABS: Lactic Acid 1.4 mmol/L (0.5-2.0)
[2023-03-23 06:55] LABS: B Type Natriuretic Peptide 635 pg/mL (<100)
[2023-03-23 07:31] LABS: OBS Int Ctl Valid YES; OBS1 POSITIVE (NEGATIVE)
[2023-03-23] MEDS: Azithromycin 500 MG in 0.9 % Sodium Chloride 250 ML 125 MG IV (07:47)
--- NOTE | 2023-03-23 08:03 | PC.NURSE ---
Assumed care of this pt at 0700. Pt alert and oriented, vss. Rectal exam done by MD with this RN at bedside, stool sample sent as documented. Antibiotic started as documented. Pt resting quietly, no apparent distress.
--- NOTE | 2023-03-23 09:13 | PHA.MEDREC ---
Pharmacy Consult ? Medication Reconciliation Pharmacy has completed the medication reconciliation. Spoke to pt to confirm meds. Per patient, they were doing fine on clonazepam 0.25 mg daily PRN for several years until their new MD stopped the medication . Since MD stopped, I have taken it off med rec. However, pt tells me they are interested and being put back on as it helped with insomnia/anxiety. Pt also stopped atorvastatin due to muscle pain.
[2023-03-23] MEDS: Furosemide 20 MG/2 ML VIAL IVPUSH (09:23)
[2023-03-23 09:27] LABS: Troponin-I High Sensitivity 51.1 ng/L (<3.5-17.0)
--- NOTE | 2023-03-23 09:31 | PC.NURSE ---
CRITICAL TROPONIN 51.1. DR. DUVALL WAS NOTIFIED VIA [facility]. NO NEW ORDERS RECEIVED
--- NOTE | 2023-03-23 10:09 | P.HPHOSP_ITS ---
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 Denies any sick contact or travel or antibiotic use. She says seems think-URI like symptoms started after dental dental visit 2 weeks ago. currently denies any chest pain but feels congested , or abdominal pain or fever or chills or nausea or vomiting or any weakness or numbness. Lab imaging EKG reviewed: Has leukocytosis, H&H is 7.5, troponin 39.5-51.1 bnp 635 fobt positive. Chest x-ray:Diffuse bilateral infiltrates most consistent with pneumonia. ekg :Normal sinus rhythm Pfhx: mother had hx of chf, brother ?cad social hx : no smoking or rec drug use , ocassional use of beer. Review of Systems 2 Review of Systems: Yes all other systems are reviewed and are negative [facility] Medical History Retinal hemorrhage Macular degeneration Functional capacity: independent ambulation Family History Sister Stroke Mother Acute CHF Surgical History Heart valve replaced Social History Household Members: None Housing: House Do you presently have visiting nurse or other home services: No Alcohol intake: current Alcohol intake frequency: holidays/special occasions only Alcohol type: wine Patient Tobacco Use Status: Former Tobacco user Cigarette Packs Per Day: 2 Years Smoked: 40 Smoked in Last 30 Days: No Second Hand Smoke Exposure: No Use of substances other than those prescribed or required for medical reasons: No Advance Directives: No Advance Directives Information Provided: No service: No Current occupational status: retired Meds Allergies Allergy/AdvReac Type Severity Reaction Status Date / Time Penicillins Allergy Unknown Verified 03/14/23 13:39 procaine [From Novocain] Allergy Unknown Verified 03/14/23 13:39 Active Medications: Current Medications Ceftriaxone Sodium 1 gm/ (Sodium Chloride) 50 mls @ 100 mls/hr IV Q24H [facility] Azithromycin 500 mg/ Sodium (Chloride) 250 mls @ 125 mls/hr IV Q24H [facility] Pantoprazole Sodium (Pantoprazole Sodium 40 Mg/10 Ml Vial) 40 mg IVPUSH BID [facility] Sodium Chloride (0.9 % Sodium Chloride Flush 3 Ml Syringe) 3 ml IVFLUSH QSHIFT EVELIO Home Medications Medication Instructions Recorded Confirmed Last Taken Type latanoprost 0.005 % eye drops 1 drp ophthalmic-Left BEDTIME 03/20/22 03/23/23 03/22/23 History lisinopril 5 mg tablet 1 tab PO DAILY 03/20/22 03/23/23 03/23/23 History prednisolone acetate 1 % eye 1 drp ophthalmic-Right DAILY 03/20/22 03/23/23 03/22/23 History drops,suspension timolol maleate 0.5 % eye drops 1 drp ophthalmic-Left BID 03/20/22 03/23/23 03/22/23 History calcium carbonate 500 mg calcium 500 mg PO BID 03/23/23 03/23/23 03/22/23 History (1,250 mg) tablet diclofenac sodium 1 % topical gel 2 g topical QID PRN Pain 03/23/23 03/23/23 Unknown History omeprazole 10 mg capsule,delayed 10 mg PO DAILY@0630 03/23/23 03/23/23 03/23/23 History release Physical Exam 2 Vital Signs and Narrative: Vital Signs: Last Vital Signs Temp 98.3 F 03/23/23 09:51 Pulse 85 03/23/23 09:51 Resp 24 H 03/23/23 09:51 BP 130/59 L 03/23/23 09:51 Pulse Ox 93 03/23/23 09:36 O2 Del Method Nasal Cannula 03/23/23 09:36 O2 Flow Rate 3 03/23/23 09:36 Oxygen Flow Rate 4 03/23/23 06:08 BMI result Body Mass Index 23.3 Appearance: Alert.? Oriented X3.? not in distress.? Eyes: Pupils equal, round and reactive to light.? Sclera nonicteric.? ENT: Pharynx normal.? Moist mucous membranes. cvs: rrr, [id number] . res: air entry fair ,has few cracles b/l abd: no rebound or guarding ,nt, bs present. ext pulses present , no cyanosis . neuro: axo3 , nonfocal. Results Labs 03/23/23 05:57 03/23/23 05:57 Labs: Laboratory Results - last 24 hr 03/23/23 03/23/23 03/23/23 05:57 06:29 07:21 MCV 96.6 MCH 31.8 MCHC 32.9 RDW 16.4 H Plt Count 440 H D MPV 11.1 Immature Gran % (Auto) 2.8 H Neut % (Auto) 81.8 H Lymph % (Auto) 6.5 L Ulster % (Auto) 5.8 Eos % (Auto) 2.5 Baso % (Auto) 0.6 Lymph # (Auto) 1.1 L [place] # (Auto) 1.0 Eos # (Auto) 0.4 Baso # (Auto) 0.1 Abs Immat Gran (auto) 0.48 H Absolute Neuts (auto) 13.9 H Absolute Nucleated RBC 0.030 H Nucleated RBC % (auto) 0.2 Anion Gap 15 Estim Creat Clear Calc 43.3 Estimated GFR > 60 Random Glucose 197 H Lactic Acid 1.4 Calcium 8.9 Total Bilirubin 0.5 AST 63 H ALT 57 H Alkaline Phosphatase 104 B-Natriuretic Peptide 635 H Total Protein 6.5 Albumin 2.8 L Stool Occult Blood POSITIVE Influenza Type A (PCR) NEGATIVE Influenza Type B (PCR) NEGATIVE RSV RNA Qual (PCR) NEGATIVE SARS-CoV-2 RNA (RT-PCR) NEGATIVE Blood Type Antibody Screen Crossmatch 03/23/23 07:31 MCV MCH MCHC RDW Plt Count MPV Immature Gran % (Auto) Neut % (Auto) Lymph % (Auto) [place] % (Auto) Eos % (Auto) Baso % (Auto) Lymph # (Auto) [place] # (Auto) Eos # (Auto) Baso # (Auto) Abs Immat Gran (auto) Absolute Neuts (auto) Absolute Nucleated RBC Nucleated RBC % (auto) Anion Gap Estim Creat Clear Calc Estimated GFR Random Glucose Lactic Acid Calcium Total Bilirubin AST ALT Alkaline Phosphatase B-Natriuretic Peptide Total Protein Albumin Stool Occult Blood Influenza Type A (PCR) Influenza Type B (PCR) RSV RNA Qual (PCR) SARS-CoV-2 RNA (RT-PCR) Blood Type O Positive Antibody Screen NEGATIVE Crossmatch See Detail Imaging Radiologist's Impressions: Impressions Chest X-Ray 03/23/23 06:08 IMPRESSION: Diffuse bilateral infiltrates most consistent with pneumonia. 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 Acute hypoxemic respiratory failure secondary to pneumonia,? Possible CHF component-etiology unclear patient met sepsis criteria - tachypnea,leucocytosis ,fever (101*F) lactic acid normal blood culutres sent add procalcitonin levels started on iv ceftriaxone /azithromycin (03/23). possible acute blood loss on ch macocytic anemia(? 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 chest tightness ,congestion elevated trop,bnp ,no st ekg changes ,now no chest pain -possible demand related (anemia/pneumonia vs chf) given lasix in ed Continue small dose Lasix, monitor I&O, daily weights. will added echo ,consider cardiology eval glucoma :conitnue home eye drops dvt prophylax: scd. Patient will benefit from 48-72 hour hospital admission stay considering hypoxemic respiratory failure with pneumonia and may have component of CHF, I would in addition patient has acute blood loss anemia may need blood transfusion and GI as expert recommendations and workup, and may need cardiac workup also, in addition may need to monitor I&O with renal function and electrolytes while on Lasix. Patient is DNR DNI, above management discussed with the patient in detail length she understand and in agreement with the above plan, time spent 70 minute. Quality Stroke Does the patient have a stroke diagnosis?: No VTE Prior VTE?: No VTE Risk Level:: Medical - moderate - high VTE Device Contraindication: N/A - Device Ordered VTE Drug Contraindication: N/A - Med Ordered
--- NOTE | 2023-03-23 10:58 | PC.NURSE ---
Blood Transfusion started and is infusing appropriately. Pt tolerating well. She denies sob/headache/dizziness/blurry vision/cp. She denies pain, vss. Purewick placed per pt's request. Will continue to monitor.
--- NOTE | 2023-03-23 11:08 | PC.NURSE ---
Per Dr. Nicole do not give Azithromycin 500 mg and Rocephin that is scheduled for 1015. Duplicate orders.
[2023-03-23 11:30] LABS: Iron 10 mcg/dL (30-160); Percent Iron Saturation 9 % (15-50); Total Iron Binding Capacity 106 mcg/dL (228-428); Unsaturated Iron Binding 96 ug/dL
[2023-03-23 11:44] LABS: Ferritin 1300 ng/mL (10-250); Procalcitonin 0.22 ng/mL
[2023-03-23] MEDS: Albuterol Sulfate 2.5 MG, Albuterol/Iprat 2.5/0.5MG 3 ML 3 ML INHALE (15:23)
--- NOTE | 2023-03-23 15:26 | MHC.CM.PN ---
IMM 03/23. Pt lives at home alone, self-care. Pts brother to transport her home. HCP on file and verified. PCP: Dr. Volodymyr Edwards
[2023-03-23] MEDS: 0.9 % Sodium Chloride Flush 3 ML SYRINGE IVFLUSH (16:10)
--- NOTE | 2023-03-23 17:19 | P.EN_ITS ---
Event Note Date of Service: 03/23/23 Event Note: GI Consult-Full note dictated. History from patient and EMR. Imp: 83 yo female on chronic 81mg aspirin for a history of a TIA presenting with progressive cough and SOB with abnormal CXR, new anemia, and Heme + stool. She has recently been using Ibuprofen BID regularly for recent dental work over the past 3 weeks or so, as well as a course of Amoxicillin from the dentist. She is on a chronic PPI for GERD. She has had some loose stools, but denies any other new GI sx, melena, nor BRBPR. She has had numerous colonoscopies and upper endoscopies with Dr. Robison in [place], with the most recent ones being about 5 years ago. She reports those most recent studies were unremarkable. She denies any history of ulcer disease. Her iron is low, but her Ferritin is > 1000. She is presently very hungry. Diff dx: In regard to the anemia and Heme + stool, I suspect this reflects some slow and silent UGI blood loss from ASA/NSAID-induced gastritis or ulcer disease. Other possibility would be AVM's. Doubt a lower GI source given her lack of any obvious bleeding and report of numerous colonoscopies in the past. Rec: Advance diet for now, continue PPI, transfuse to Hgb > 8-9, and hold ASA/NSAIDs. Once she is cleared from a cardiopulmonary standpoint we can sc hedule her for an upper endoscopy with me or Dr. Askew before discharge. I don't think a colonoscopy is presently required. She reports that she does have an appointment in July with Dr. Robison in regard to a possible colonoscopy. Full consent has been obtained from her for the upper endoscopy with or Dr. Askew, including risks of bleeding and perforation. Please advise me when she is medically cleared for her procedure from a cardiopulmonary standpoint and I shall schedule it for her before she goes home. D/W patient in detail and she is comfortable with the plan. Thanks. Time Spent With Patient Time: Total time managing care of this patient today ____ minutes.
[2023-03-23 19:28] LABS: Hematocrit 28.3 % (37.0-47.0); Hemoglobin 9.5 g/dl (12.0-16.0)
[2023-03-23] MEDS: timoloL maleate 0.5 % Oph Sol 5 ML DRBTL 1 DROP EYE-LEFT (21:34)
[2023-03-23] MEDS: Latanoprost 0.005 % Ophth Sol 2.5 ML DROPS 1 DROP EYE-LEFT (21:34)
[2023-03-23] MEDS: Pantoprazole Sodium 40 MG/10 ML VIAL IVPUSH (21:34)
[2023-03-23] MEDS: guaiFENesin 200 MG/10 ML 10 ML LIQUID PO (21:34)
[2023-03-24] VITALS (7 sets, daily range): BP systolic 133–177; BP diastolic 60–79; PULSE 82–96; RESP 16–19; TEMP 36.3–36.7; O2SAT 88–92
[2023-03-24] MEDS: 0.9 % Sodium Chloride Flush 3 ML SYRINGE IVFLUSH ×4 (00:10→19:53)
[2023-03-24] MEDS: Acetaminophen 325 MG TABLET 650 MG PO ×3 (00:15→19:49)
[2023-03-24 05:52] LABS: Hematocrit 27.1 % (37.0-47.0); Mean Corpuscular HGB Conc 33.2 g/dl (31.0-35.0); Mean Corpuscular Hemoglobin 32.3 pg (27.0-33.0); Mean Corpuscular Volume 97.1 fL (80.0-98.0); Mean Platelet Volume 10.7 fL (9.4-12.3); Platelet Count 368 X10*3/uL (160-400); Red Blood Count 2.79 X10*6/uL (4.20-5.50); Red Cell Distribution Width 15.5 % (11.0-16.0); White Blood Count 12.6 X10*3/uL (4.8-10.8)
[2023-03-24 06:04] LABS: Anion Gap 14 (12-20); Blood Urea Nitrogen 11 mg/dL (9-16); Calcium 8.5 mg/dL (8.4-10.2); Carbon Dioxide 24 mmol/L (22-29); Chloride 105 mmol/L (96-108); Creatinine Clr Calc Pharmacy 45.8; Estimated Glomerular Filt Rate > 60; Glucose Fasting 119 mg/dL (60-99); Potassium 3.4 mmol/L (3.3-5.1); Sodium 140 mmol/L (135-145)
[2023-03-24 06:39] LABS: Folate 12.1 ng/mL (> or = 4.0); Vitamin B12 1392 pg/mL (200-900)
--- NOTE | 2023-03-24 07:00 | CA_ITS ---
Transthoracic Echocardiogram Patient (Last, First, Middle): Deepthi Garcia V Gender: Female Date of : 1940 Age: 83 Procedure Date: 03/24/2023 Procedure Type: Transthoracic Echocardiogram Location: [facility] – [place] Height: 152.4 cm Weight: 53.98 kg BSA: 1.50 m2 Heart Rate: 91 bpm BP: 149 / 63 mmHg Radio Reporter: SB Referring MD: Frank Nicole MD Symptoms: elevated troponins Study Quality: Adequate w contrast ECG Rhythm: Sinus Conclusions: - Normal left ventricular size, thickness, systolic function, and wall motion. The visually estimated ejection fraction is between 65-70%. Diastolic function is indeterminate on the basis of available data. - Mildly increased right ventricular cavity size. There is borderline right ventricular systolic function. - A bioprosthetic aortic valve is present. The prosthetic aortic valve appears to be functioning normally. Findings Procedure Information Contrast agent, definity, is being given per protocol without apparent complications. The quality of the study was technically difficult. The study quality is limited by lung artifact. Left Ventricle Normal left ventricular size, thickness, systolic function, and wall motion. The visually estimated ejection fraction is between 65-70%. Diastolic function is indeterminate on the basis of available data. Right Ventricle Mildly increased right ventricular cavity size. There is borderline right ventricular systolic function. Atria The left atrium is normal in size. The right atrium is normal in size. Aortic Valve A bioprosthetic aortic valve is present. The prosthetic aortic valve appears to be functioning normally. There is no aortic valve stenosis. There is no aortic valve regurgitation. Mitral Valve There is severe mitral annular calcification. There is mild mitral valve regurgitation. There is no mitral valve stenosis. Pulmonic Valve The pulmonic valve is likely normal. Tricuspid Valve Normal tricuspid valve structure. There is no tricuspid valve regurgitation. Tricuspid regurgitation envelope is inadequate for calculation of right ventricular systolic pressure. Normal right atrial pressure. Great Vessels All visible segments of the aorta are normal in size. Venous The inferior vena cava is normal in size and collapses greater than 50% with inspiration. Pericardium/Pleural There is no evidence of pericardial effusion. Prior Study Comparison Changes noted compared to prior study dated: 03/20/2022. Aortic valve gradients are lower than last study. Measurements 2D Linear Measurements IVSd: 0.78 0.6-0.9/0.6-1.0 cm LVIDd: 4.10 3.9-5.3/4.2-5.9 cm LVIDd Index: 2.73 2.4-3.2/2.2-3.1 cm/m2 LVIDs: 2.77 2.0-3.6 cm LVPWd: 0.78 0.7-1.1 cm LA Diam: 3.90 2.7-3.8/3.0-4.0 cm LAIDs Index: 2.60 1.5-2.3 cm/m2 LV Mass: 117.10 67-162/88-224 g LV Mass Index: 78.06 43-95/49-115 g/m2 LVOT Diam: 1.80 3.0+(-)1.3 cm 2D Systolic Function EF 4C: 60.90 >55% EF 2C: 63.70 >55% EF BiP: 62.40 >55% Mitral Valve MV VTI: 0.23 MV Pk Seun: 1.14 MV Mn Seun: 0.92 MV Pk Grad: 5.00 MV Mn Grad: 3.00 MV Pk E: 1.17 MV PK A: 1.08 MV Decel Time: 191.00 E/A: 1.10 E'Lateral: 5.77 E'Medial: 3.81 E/E' Med: 30.70 E/E' Lat: 20.30 PHT: 56.00 MVA PHT: 3.93 MVA Continuity: 2.46 Decel Bulloch: 6.13 Aortic Valve AoV Pk Seun: 1.90 AoV Mn Seun: 1.23 AoV VTI: 0.37 AoV Pk Grad: 15.00 Aov Mn Grad: 7.00 SHERIN Cont.VTI: 1.53 LVOT LVOT Pk Seun: 1.06 LVOT Mn Seun: 0.74 LVOT VTI: 0.22 LVOT Pk Grad: 4.00 LVOT Mn Grad: 3.00 LVOT Diam: 1.80 LVOT Area: 2.54 Diastolic Function MV Pk E: 1.17 MV Pk A: 1.08 E/A: 1.10 E'Medial: 3.81 E/E' Med: 30.70 E' Laterial: 5.77 E/E' Lat: 20.30 Right Ventricle TAPSE (mm): 15.20 TVS' Seun: 9.14 Tricuspid Valve RA Press: 3.00 Great Vessels Aorta Ao Asc: 2.20 2.1-3.4 cm Pulmonary Veins Pulm Vein S/D 1.40 Pulmonary Valve PV Pk Seun: 0.97 Peak PV Grad: 4.00 Updated in Other Vendor System with Status of Final Harvey Grijalva MD electronically signed on 03/24/2023 2:55:37 PM with status of Final
[2023-03-24] MEDS: Furosemide 20 MG/2 ML VIAL IVPUSH ×2 (09:08→19:36)
[2023-03-24] MEDS: Potassium Chloride ER 20 MEQ TAB.ER.PRT PO (09:08)
[2023-03-24] MEDS: Azithromycin 500 MG in 0.9 % Sodium Chloride 250 ML 125 MG IV (09:09)
[2023-03-24] MEDS: cefTRIAXone sodium 1 GM in 0.9 % Sodium Chloride 50 ML IV (09:10)
[2023-03-24] MEDS: Pantoprazole Sodium 40 MG/10 ML VIAL IVPUSH ×2 (09:10→19:50)
[2023-03-24] MEDS: timoloL maleate 0.5 % Oph Sol 5 ML DRBTL 1 DROP EYE-LEFT ×2 (09:11→19:51)
[2023-03-24] MEDS: guaiFENesin 200 MG/10 ML 10 ML LIQUID PO ×2 (09:27→16:11)
--- NOTE | 2023-03-24 10:06 | PM.CNCAR ---
History of Present Illness History of Present Illness Date of Service: 03/24/23 Requesting physician: Frank Nicole Chief complaint: pneumonia, elevated troponins Narrative: 83-year-old female who follows with Dr. Britton at [facility] and has background history of bioprosthetic aortic valve replacement as well as single-vessel bypass to obtuse marginal [place] [address] Munoz. She is presenting with progressive shortness of breath, cough, fevers and chills over the last 5 days. She has bilateral pneumonia on chest x-ray and has been started on antibiotics. She was noticed to have mildly elevated troponin levels. She was also noticed to be anemic. She is denying any chest discomfort. She said she had a poor appetite and thought that she had influenza. She is still complaining of poor appetite at this point. She is on IV antibiotics. She is hypoxic. She is denying any orthopnea or PND. She is found to be guaiac positive and has been seen by Gastroenterology have recommended to do an upper GI endoscopy on her. She was taking NSAIDs for tooth pain. FORMERLY [facility], [facility] Past Medical History Medical History Retinal hemorrhage Macular degeneration Family History Family History Sister Stroke Mother Acute CHF Surgical History Surgical History Heart valve replaced Social History Social History Household Members: None Housing: House Do you presently have visiting nurse or other home services: No Alcohol intake: current Alcohol intake frequency: holidays/special occasions only Alcohol type: wine Patient Tobacco Use Status: Former Tobacco user Cigarette Packs Per Day: 2 Years Smoked: 40 Second Hand Smoke Exposure: No service: No Current occupational status: retired Meds Allergies Allergy/AdvReac Type Severity Reaction Status Date / Time Penicillins Allergy Unknown Verified 03/14/23 13:39 procaine [From Novocain] Allergy Unknown Verified 03/14/23 13:39 Active Medications: Current Medications Acetaminophen (Acetaminophen 325 Mg Tablet) 650 mg PO Q6H PRN PRN Reason: Pain, Mild (Pain Scale 1-3) Last Admin: 03/24/23 00:15 Dose: 650 mg Calcium Carbonate (Calcium Carbonate 500 Mg Tablet) 500 mg PO BID [facility] Last Admin: 03/24/23 09:08 Dose: 500 mg Furosemide (Furosemide 20 Mg/2 Ml Vial) 20 mg IVPUSH Q12H [facility]; Protocol Last Admin: 03/24/23 09:08 Dose: 20 mg Guaifenesin (Guaifenesin 200 Mg/10 Ml 10 Ml Liquid) 10 ml PO Q4H PRN PRN Reason: Cough Last Admin: 03/24/23 09:27 Dose: 10 ml Guaifenesin (Guaifenesin 200 Mg/10 Ml 10 Ml Liquid) 10 ml PO Q4H PRN PRN Reason: Cough Ceftriaxone Sodium 1 gm/ (Sodium Chloride) 50 mls @ 100 mls/hr IV Q24H [facility] Last Infusion: 03/24/23 10:00 Dose: Infused Azithromycin 500 mg/ Sodium (Chloride) 250 mls @ 125 mls/hr IV Q24H [facility] Last Admin: 03/24/23 09:09 Dose: 125 mls/hr Latanoprost (Latanoprost 0.005 % Ophth Maris 2.5 Ml Drops) 1 drop EYE-LEFT BEDTIME [facility] Last Admin: 03/23/23 21:34 Dose: 1 drop Pantoprazole Sodium (Pantoprazole Sodium 40 Mg/10 Ml Vial) 40 mg IVPUSH BID [facility] Last Admin: 03/24/23 09:10 Dose: 40 mg Prednisolone Acetate (Prednisolone Acetate 1 % Oph Susp 5 Ml Drpbtl) 1 drop EYE-RIGHT DAILY [facility] Sodium Chloride (0.9 % Sodium Chloride Flush 3 Ml Syringe) 3 ml IVFLUSH QSHIFT [facility] Last Admin: 03/24/23 09:11 Dose: 3 ml Timolol Maleate (Timolol Maleate 0.5 % Oph Maris 5 Ml Drbtl) 1 drop EYE-LEFT BID [facility] Last Admin: 03/24/23 09:11 Dose: 1 drop Home Medications Medication Instructions Recorded Confirmed Last Taken Type latanoprost 0.005 % eye drops 1 drp ophthalmic-Left BEDTIME 03/20/22 03/23/23 03/22/23 History lisinopril 5 mg tablet 1 tab PO DAILY 03/20/22 03/23/23 03/23/23 History prednisolone acetate 1 % eye 1 drp ophthalmic-Right DAILY 03/20/22 03/23/23 03/22/23 History drops,suspension timolol maleate 0.5 % eye drops 1 drp ophthalmic-Left BID 03/20/22 03/23/23 03/22/23 History calcium carbonate 500 mg calcium 500 mg PO BID 03/23/23 03/23/23 03/22/23 History (1,250 mg) tablet diclofenac sodium 1 % topical gel 2 g topical QID PRN Pain 03/23/23 03/23/23 Unknown History omeprazole 10 mg capsule,delayed 10 mg PO DAILY@0630 03/23/23 03/23/23 03/23/23 History release Physical Exam Vital Signs: Vital Signs: Last Vital Signs Temp 97.3 F 03/24/23 06:58 Pulse 93 03/24/23 06:58 Resp 18 03/24/23 06:58 BP 149/63 H 03/24/23 06:58 Pulse Ox 88 L 03/24/23 06:58 O2 Del Method Nasal Cannula 03/24/23 06:58 O2 Flow Rate 4 03/24/23 03:18 Oxygen Flow Rate 4 03/23/23 06:08 BMI result Body Mass Index 23.3 GENERAL APPEARANCE: Short of breath, on supplemental oxygen. Pleasant. NECK: no carotid bruit, no jugular venous distention. SKIN: no suspicious lesions, warm and dry. HEART: no murmurs, regular rate and rhythm. LUNGS: Bilateral crackles and rhonchi. ABDOMEN: soft, nontender. EXTREMITIES: no edema. PERIPHERAL PULSES: equal. NEUROLOGIC: No gross deficits, AAO X 3 Objective Labs and Meds 03/24/23 05:37 03/24/23 05:37 Lab results: Laboratory Results - last 24 hr 03/23/23 03/23/23 03/23/23 07:31 08:57 19:15 WBC RBC Hgb 9.5 L D Hct 28.3 L D MCV MCH MCHC RDW Plt Count MPV Absolute Nucleated RBC Nucleated RBC % (auto) Sodium Potassium Chloride Carbon Dioxide Anion Gap BUN Creatinine Estim Creat Clear Calc Estimated GFR Fasting Glucose Calcium Iron 10 L TIBC 106 L % Saturation 9 L Unsat Iron Binding 96 Ferritin 1300 H Vitamin B12 Folate Procalcitonin 0.22 Crossmatch See Detail 03/24/23 05:37 WBC 12.6 H RBC 2.79 L Hgb 9.0 L Hct 27.1 L MCV 97.1 MCH 32.3 MCHC 33.2 RDW 15.5 Plt Count 368 MPV 10.7 Absolute Nucleated RBC 0.000 Nucleated RBC % (auto) 0.0 Sodium 140 Potassium 3.4 Chloride 105 Carbon Dioxide 24 Anion Gap 14 BUN 11 Creatinine 0.68 Estim Creat Clear Calc 45.8 Estimated GFR > 60 Fasting Glucose 119 H Calcium 8.5 Iron TIBC % Saturation Unsat Iron Binding Ferritin Vitamin B12 1392 H Folate 12.1 Procalcitonin Crossmatch Assessment and Plan (1) Guaiac positive stools: Status: Acute (2) Severe anemia: Status: Acute (3) Acute hypoxic respiratory failure: Status: Acute (4) Bilateral pneumonia: Status: Acute Plan Very pleasant 83 year female who has background history of coronary artery bypass surgery and aortic valve replacement with bioprosthetic valve in 2015 who is presenting with progressive shortness of breath, cough and fevers and has been diagnosed with bilateral pneumonia. She is on IV antibiotics at this point and is improving. Clinically does not appear to be volume overloaded or in heart failure. Continue supportive care. She had guaiac-positive stool and was using NSAIDs. She will need upper endoscopy. She is intermediate risk for perioperative cardiovascular complications but should wait till her respiratory status improves further. Mildly elevated troponin level in the setting of anemia and severe pneumonia. This is type 2 injury. She has moderate aortic valve stenosis based on echocardiography in March 2022. She can have repeat echocardiography now or can get it done with Dr. Britton as outpatient. Thank you for allowing me to participate in the care of your patient. Please feel free to contact me if you have any questions. Procedures Date of Service Date of Service: 03/24/23
--- NOTE | 2023-03-24 10:39 | P.PNIM_ITS ---
Subjective Subjective Date of Service: 03/24/23 Interval History: Acute hypoxemic respiratory failure secondary to pneumonia,? Possible CHF component-etiology unclear Review of Systems sob somewhat improving denies abd pain or diarrahe today no fevers Physical Exam 2 Vital Signs: Vital Signs: Last Vital Signs Temp 97.3 F 03/24/23 06:58 Pulse 93 03/24/23 06:58 Resp 18 03/24/23 06:58 BP 149/63 H 03/24/23 06:58 Pulse Ox 88 L 03/24/23 06:58 O2 Del Method Nasal Cannula 03/24/23 06:58 O2 Flow Rate 4 03/24/23 03:18 Oxygen Flow Rate 4 03/23/23 06:08 BMI result Body Mass Index 23.3 Appearance: Alert.? Oriented X3.? not in distress.? cvs: rrr, [id number] . res: air entry fair ,has few cracles b/l abd: no rebound or guarding ,nt, bs present. ext pulses present , no cyanosis . neuro: axo3 , nonfocal. Objective Data Active Medications Acetaminophen (Acetaminophen 325 Mg Tablet) 650 mg PO Q6H PRN PRN Reason: Pain, Mild (Pain Scale 1-3) Last Admin: 03/24/23 00:15 Dose: 650 mg Documented By: CHIQUIS Calcium Carbonate (Calcium Carbonate 500 Mg Tablet) 500 mg PO BID [facility] Last Admin: 03/24/23 09:08 Dose: 500 mg Documented By: JANEEN Furosemide (Furosemide 20 Mg/2 Ml Vial) 20 mg IVPUSH Q12H [facility]; Protocol Last Admin: 03/24/23 09:08 Dose: 20 mg Documented By: JANEEN Guaifenesin (Guaifenesin 200 Mg/10 Ml 10 Ml Liquid) 10 ml PO Q4H PRN PRN Reason: Cough Last Admin: 03/24/23 09:27 Dose: 10 ml Documented By: JANEEN Guaifenesin (Guaifenesin 200 Mg/10 Ml 10 Ml Liquid) 10 ml PO Q4H PRN PRN Reason: Cough Ceftriaxone Sodium 1 gm/ (Sodium Chloride) 50 mls @ 100 mls/hr IV Q24H [facility] Last Infusion: 03/24/23 10:00 Dose: Infused Documented By: JANEEN Azithromycin 500 mg/ Sodium (Chloride) 250 mls @ 125 mls/hr IV Q24H [facility] Last Admin: 03/24/23 09:09 Dose: 125 mls/hr Documented By: JANEEN Latanoprost (Latanoprost 0.005 % Ophth Maris 2.5 Ml Drops) 1 drop EYE-LEFT BEDTIME [facility] Last Admin: 03/23/23 21:34 Dose: 1 drop Documented By: DA Pantoprazole Sodium (Pantoprazole Sodium 40 Mg/10 Ml Vial) 40 mg IVPUSH BID [facility] Last Admin: 03/24/23 09:10 Dose: 40 mg Documented By: JANEEN Prednisolone Acetate (Prednisolone Acetate 1 % Oph Susp 5 Ml Drpbtl) 1 drop EYE-RIGHT DAILY [facility] Sodium Chloride (0.9 % Sodium Chloride Flush 3 Ml Syringe) 3 ml IVFLUSH QSHIFT [facility] Last Admin: 03/24/23 09:11 Dose: 3 ml Documented By: JANEEN Timolol Maleate (Timolol Maleate 0.5 % Oph Maris 5 Ml Drbtl) 1 drop EYE-LEFT BID [facility] Last Admin: 03/24/23 09:11 Dose: 1 drop Documented By: JANEEN Labs 03/24/23 05:37 03/24/23 05:37 Labs: Laboratory Results - last 24 hr 03/23/23 03/23/23 03/24/23 07:31 08:57 05:37 MCV 97.1 MCH 32.3 MCHC 33.2 RDW 15.5 Plt Count 368 MPV 10.7 Absolute Nucleated RBC 0.000 Nucleated RBC % (auto) 0.0 Anion Gap 14 Estim Creat Clear Calc 45.8 Estimated GFR > 60 Fasting Glucose 119 H Calcium 8.5 Iron 10 L TIBC 106 L % Saturation 9 L Unsat Iron Binding 96 Ferritin 1300 H Vitamin B12 1392 H Folate 12.1 Procalcitonin 0.22 Crossmatch See Detail Microbiology Microbiology Results: Microbiology 03/23/23 06:29 Blood Culture - Preliminary Blood - Venous No growth after 24 hours. 03/23/23 06:29 Blood Culture - Preliminary Blood - Venous No growth after 24 hours. 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 Acute hypoxemic respiratory failure secondary to pneumonia,? Possible CHF component-etiology unclear patient met sepsis criteria - tachypnea,leucocytosis ,fever (101*F) lactic acid normal,blood culutres pending procalcitonin 0.22 started on iv ceftriaxone /azithromycin (03/23). possible acute blood loss on ch macocytic anemia(? Gi bleed) fobt postive h.h drop from 11.2 to 7.5 -s/p 1prbc- today h/h 11/06.1 ppi,stool studies ,hold asa ,nsaids iron studies ,folic/b12 levels added . GI eval-possible egd after cardiology eval. 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 chest tightness ,congestion elevated trop,bnp ,no st ekg changes ,now no chest pain -possible demand related (anemia/pneumonia vs chf) given lasix in ed monitor I&O( need to moniter closely), daily weights. iv lasix 20 mg bid echo ,consider cardiology eval glucoma :conitnue home eye drops dvt prophylax: scd. Patient will benefit from 48-72 hour hospital admission stay considering hypoxemic respiratory failure with pneumonia and may have component of CHF, I would in addition patient has acute blood loss anemia may need blood transfusion and GI as expert recommendations and workup, and may need cardiac workup also, in addition may need to monitor I&O with renal function and electrolytes while on Lasix,also need Gi workup for anemia -possible egd inpatient. Quality Stroke Does the patient have a stroke diagnosis?: No VTE Prior VTE?: No VTE Risk Level:: Medical - moderate - high VTE Device Contraindication: N/A - Device Ordered VTE Drug Contraindication: N/A - Med Ordered
[2023-03-24] MEDS: prednisoLONE Acetate 1 % Oph Susp 5 ML DRPBTL 1 DROP EYE-RIGHT (11:08)
--- NOTE | 2023-03-24 11:14 | CONS_ITS ---
DATE OF SERVICE: 03/23/2023 REASON FOR CONSULTATION: Anemia and heme-positive stool. HISTORY OF PRESENT ILLNESS: This has been obtained from the patient and the medical record. The patient is an 83-year-old female who describes about 2 weeks of progressive coughing and some shortness of breath. She became quite short of breath early this morning, which prompted her ER visit. Prior to the past 2 weeks, she was not having any particular respiratory symptoms nor any GI problems. She describes that she has been followed by Dr. Deon Robison in [employer], having had numerous colonoscopies and at least one upper endoscopy with him. She describes an upper endoscopy and colonoscopy 5 years ago, both of which were unremarkable. She describes that she has a followup appointment with him in July to set up a followup colonoscopy as well. She does take a single 81 mg aspirin daily due to a history of TIAs. About 2 to 3 weeks ago, she had some dental work and has been using ibuprofen b.i.d. on a daily and regular basis since that time. She is on chronic Prilosec as well. Her only new GI symptom is that of some loose stool, which may have been in relation to amoxicillin that she received after the dental work. She has not noticed any hematochezia nor melena. She denies any increasing heartburn, dysphagia, nausea, vomiting, abdominal pain, jaundice, nor anorexia. Due to her symptoms of the shortness of breath, she came to the ER and was found to be anemic and had brown, but heme-positive stool. She was subsequently admitted and has received 1 unit of blood. She has also been started on antibiotics for an abnormal chest x-ray. She denies any history of ulcer disease. She stopped smoking many years ago and does not use any significant amounts of alcohol. She denies any known family history of GI malignancy. She has never had an ulcer. MEDICATIONS: At home included aspirin 81 mg, ibuprofen b.i.d., lisinopril, eyedrops, and acetaminophen. Medications here in the hospital include IV pantoprazole, acetaminophen, albuterol inhaler, azithromycin 500 mg IV q.24 hours, ceftriaxone 1 g IV q.24 hours, eyedrops. 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 Medical issues include coronary artery disease, macular degeneration, glaucoma, hypertension. She denies history of SC, stroke, diabetes, previous lung disease, nor kidney disease. She did have a TIA last year. SOCIAL HISTORY: She is a and lives by herself. She does not smoke nor drink. FAMILY HISTORY: Noncontributory. REVIEW OF SYSTEMS: CONSTITUTIONAL: Up until the past 2 weeks ago, she was feeling at her usual baseline of good health. SKIN: No rash. No pruritus. CARDIAC: No chest pain. PULMONARY: She has had some coughing, but no hemoptysis. GI: As above. URINARY: No dysuria, no hematuria. NEUROLOGIC: No headache or seizures. PHYSICAL EXAMINATION: GENERAL: Again, the patient is a pleasant, elderly, alert female, in no distress. SKIN: Warm and dry. She does appear pale. NECK: Supple. CARDIAC: Normal S1, S2. ABDOMEN: Soft, nondistended, nontender without organomegaly or mass. EXTREMITIES: Without edema. NEUROLOGICAL: She is alert and oriented and answers questions appropriately. LABORATORY DATA: White blood cell count 17,000. Hemoglobin 7.5 compared to 11.2 one year ago. MCV 97. Platelets 440,000. Normal electrolytes. BUN 12, creatinine 0.7. Iron 10, iron saturation 9%, ferritin 1300. AST 63, ALT 57. Troponin 51.1. BNP 635, albumin 2.8, procalcitonin 0.22. Stool was heme positive. COVID and influenza were negative. Chest x-ray describes diffuse bilateral infiltrates consistent with probable pneumonia. IMPRESSION: Given the patient's clinical history of the recent use of regular ibuprofen in addition to her low-dose aspirin, heme-positive stool, and new anemia, I suspect she has had some slow, but steady blood loss from the upper GI tract. This may represent some NSAID induced gastritis or ulcer disease. She may have some angiodysplasia. Given the clinical history of multiple colonoscopies in the past, I doubt this represents a significant lower GI source of bleeding, but again possibilities such as angiodysplasias could be present as well. At this point, I would recommend continuing her IV PPI, advancing her diet for the time being, and monitoring her hemoglobin to maintain the level of above 8 or 9. I do not think she requires a colonoscopy during the admission, but I would recommend an upper endoscopy before discharge to rule out any significant ulcer disease that could affect her need for increasing her PPI and/or holding her low-dose aspirin on a long-term basis. Full consent has been obtained for the upper endoscopy, including risks of bleeding and perforation. I advised her that this would be done by either me or Dr. Askew. However, I did advise her that she will need clearance from a medical standpoint, specifically that of a cardiopulmonary standpoint, before scheduling her for the procedure. Once she is cleared medically, I will then schedule the procedure for her before she is discharged. I did advise her to certainly follow up with Dr. Robison as well for her colonoscopy if he thinks that is needed from a screening standpoint. If there is no clear etiology of her anemia and heme-positive stool found on the upcoming upper endoscopy, then she would need a colonoscopy on a sooner basis from that standpoint. This has all been discussed with her in detail and she is comfortable with the plan. Thank you for the consultation. MD GLADYS Worrell/KELVIN / [id number] MTDLorna
--- NOTE | 2023-03-24 13:02 | P.CDIM_ITS ---
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 Please review below and update the documentation accordingly. Clinical Indicators: LAB FINDINGS: Iron 10 L Transfuse 1 unit PRBC GI bleed Based on the above, could you clarify which of the following is the most likely type of anemia you ar e evaluating, treating, and/or monitoring? 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 Please use your independent medical judgment in providing your response. THIS QUERY IS PART OF THE PERMANENT MEDICAL RECORD
[2023-03-24] MEDS: Latanoprost 0.005 % Ophth Sol 2.5 ML DROPS 1 DROP EYE-LEFT (19:51)
[2023-03-25] VITALS (8 sets, daily range): BP systolic 120–194; BP diastolic 58–88; PULSE 73–96; RESP 16–20; TEMP 36–36.9; O2SAT 90–93
[2023-03-25 06:29] LABS: Hematocrit 28.5 % (37.0-47.0); Hemoglobin 9.6 g/dl (12.0-16.0); Mean Corpuscular HGB Conc 33.7 g/dl (31.0-35.0); Mean Platelet Volume 10.9 fL (9.4-12.3); NRBC Pct Auto 0.1 /100WBC (0.0-0.2); Platelet Count 377 X10*3/uL (160-400); Red Cell Distribution Width 15.7 % (11.0-16.0); White Blood Count 14.5 X10*3/uL (4.8-10.8)
[2023-03-25 06:45] LABS: Anion Gap 14 (12-20); Blood Urea Nitrogen 12 mg/dL (9-16); Carbon Dioxide 26 mmol/L (22-29); Chloride 101 mmol/L (96-108); Creatinine Clr Calc Pharmacy 45.1; Estimated Glomerular Filt Rate > 60; Glucose Random 147 mg/dL (60-115); Potassium 3.4 mmol/L (3.3-5.1); Sodium 138 mmol/L (135-145)
[2023-03-25 06:50] LABS: B Type Natriuretic Peptide 531 pg/mL (<100)
[2023-03-25] MEDS: Furosemide 20 MG/2 ML VIAL IVPUSH (08:06)
[2023-03-25] MEDS: Acetaminophen 325 MG TABLET 650 MG PO ×2 (08:06→21:32)
[2023-03-25] MEDS: timoloL maleate 0.5 % Oph Sol 5 ML DRBTL 1 DROP EYE-LEFT ×2 (08:07→21:30)
[2023-03-25] MEDS: guaiFENesin 200 MG/10 ML 10 ML LIQUID PO ×3 (08:07→21:30)
[2023-03-25] MEDS: Azithromycin 500 MG in 0.9 % Sodium Chloride 250 ML 125 MG IV (08:07)
[2023-03-25] MEDS: prednisoLONE Acetate 1 % Oph Susp 5 ML DRPBTL 1 DROP EYE-RIGHT (08:07)
[2023-03-25] MEDS: lisinopriL 10 MG TABLET PO (08:07)
[2023-03-25] MEDS: Pantoprazole Sodium 40 MG/10 ML VIAL IVPUSH ×2 (08:07→21:30)
[2023-03-25] MEDS: 0.9 % Sodium Chloride Flush 3 ML SYRINGE IVFLUSH ×3 (08:08→21:30)
[2023-03-25] MEDS: cefTRIAXone sodium 1 GM in 0.9 % Sodium Chloride 50 ML IV (08:08)
--- NOTE | 2023-03-25 10:29 | PM.PNCARD ---
Subjective Subjective Date of Service: 03/25/23 Interval history: Seen examined at bedside. Feeling better. Appetite is improving. She is on IV diuretics currently. Physical Exam Vital Signs: Last Vital Signs Temp 98.3 F 03/25/23 07:31 Pulse 93 03/25/23 07:31 Resp 16 03/25/23 07:31 BP 185/78 H 03/25/23 07:31 Pulse Ox 90 L 03/25/23 07:31 O2 Del Method Nasal Cannula 03/25/23 07:31 O2 Flow Rate 4 03/25/23 07:31 Oxygen Flow Rate 4 03/23/23 06:08 BMI result Body Mass Index 23.3 GENERAL APPEARANCE: Short of breath, on supplemental oxygen. Pleasant. NECK: no carotid bruit, no jugular venous distention. SKIN: no suspicious lesions, warm and dry. HEART: no murmurs, regular rate and rhythm. LUNGS: Bilateral rhonchi. ABDOMEN: soft, nontender. EXTREMITIES: no edema. PERIPHERAL PULSES: equal. NEUROLOGIC: No gross deficits, AAO X 3 Objective Labs and Meds 03/25/23 06:03 03/25/23 06:03 Lab results: Laboratory Results - last 24 hr 03/25/23 06:03 WBC 14.5 H RBC 3.00 L Hgb 9.6 L Hct 28.5 L MCV 95.0 MCH 32.0 MCHC 33.7 RDW 15.7 Plt Count 377 MPV 10.9 Absolute Nucleated RBC 0.020 H Nucleated RBC % (auto) 0.1 Sodium 138 Potassium 3.4 Chloride 101 Carbon Dioxide 26 Anion Gap 14 BUN 12 Creatinine 0.69 Estim Creat Clear Calc 45.1 Estimated GFR > 60 Random Glucose 147 H Calcium 9.0 B-Natriuretic Peptide 531 H Progress Note: A&P Assessment and plan (1) Severe anemia: Status: Acute (2) Guaiac positive stools: Status: Acute (3) Bilateral pneumonia: Status: Acute Plan [age] year female presenting with anemia and shortness of breath. She was noticed to have bilateral pneumonia and is on IV antibiotics at this point. Shortness of breath was a combination of pneumonia and anemia. She has been transfused at this point. I do not think she needs diuretics currently. We can monitor her and start her on oral diuretics if required. Blood pressure is elevated. Increasing lisinopril to 20 mg daily. Monitor blood pressure closely and titrate or add other medications. We will follow along with you. Thank you for allowing me to participate in the care of your patient. Please feel free to contact me if you have any questions. Time Spent With Patient Time: Total time managing care of this patient today ____ minutes. Progress Note: Quality Stroke Does the patient have a stroke diagnosis?: No Procedures Date of Service Date of Service: 03/25/23
--- NOTE | 2023-03-25 16:28 | P.PNIM_ITS ---
Subjective Subjective Date of Service: 03/25/23 Interval History: Acute hypoxemic respiratory failure secondary to pneumonia,? Possible CHF component Clinically improving, less sob and requiring less O2 Physical Exam 2 Vital Signs: Vital Signs: Last Vital Signs Temp 97.2 F 03/25/23 15:19 Pulse 83 03/25/23 15:19 Resp 18 03/25/23 15:19 BP 134/68 03/25/23 15:53 Pulse Ox 93 03/25/23 15:19 O2 Del Method Nasal Cannula 03/25/23 15:19 O2 Flow Rate 4 03/25/23 15:19 Oxygen Flow Rate 4 03/23/23 06:08 BMI result Body Mass Index 23.3 Const: Other: General: AO X 3, no acute distress Resp: rales at bases, likely from ILD CVS: S1,S2,RRR, no led ecema GI: +BS, NT, no distention Skin: No rash Neuro: motor grossly intact Psych: appropriate affect Objective Data Active Medications Acetaminophen (Acetaminophen 325 Mg Tablet) 650 mg PO Q6H PRN PRN Reason: Pain, Mild (Pain Scale 1-3) Last Admin: 03/25/23 08:06 Dose: 650 mg Documented By: JANEEN Calcium Carbonate (Calcium Carbonate 500 Mg Tablet) 500 mg PO BID [facility] Last Admin: 03/25/23 08:07 Dose: 500 mg Documented By: JANEEN Guaifenesin (Guaifenesin 200 Mg/10 Ml 10 Ml Liquid) 10 ml PO Q4H PRN PRN Reason: Cough Last Admin: 03/25/23 08:07 Dose: 10 ml Documented By: JANEEN Guaifenesin (Guaifenesin 200 Mg/10 Ml 10 Ml Liquid) 10 ml PO Q4H PRN PRN Reason: Cough Ceftriaxone Sodium 1 gm/ (Sodium Chloride) 50 mls @ 100 mls/hr IV Q24H [facility] Last Infusion: 03/25/23 09:59 Dose: Infused Documented By: JANEEN Azithromycin 500 mg/ Sodium (Chloride) 250 mls @ 125 mls/hr IV Q24H [facility] Last Infusion: 03/25/23 11:13 Dose: Infused Documented By: JANEEN Latanoprost (Latanoprost 0.005 % Ophth Maris 2.5 Ml Drops) 1 drop EYE-LEFT BEDTIME [facility] Last Admin: 03/24/23 19:51 Dose: 1 drop Documented By: VERONICA Lisinopril (Lisinopril 20 Mg Tablet) 20 mg PO DAILY [facility]; Protocol Pantoprazole Sodium (Pantoprazole Sodium 40 Mg/10 Ml Vial) 40 mg IVPUSH BID [facility] Last Admin: 03/25/23 08:07 Dose: 40 mg Documented By: JANEEN Prednisolone Acetate (Prednisolone Acetate 1 % Oph Susp 5 Ml Drpbtl) 1 drop EYE-RIGHT DAILY [facility] Last Admin: 03/25/23 08:07 Dose: 1 drop Documented By: JANEEN Sodium Chloride (0.9 % Sodium Chloride Flush 3 Ml Syringe) 3 ml IVFLUSH QSHIFT [facility] Last Admin: 03/25/23 08:08 Dose: 3 ml Documented By: JANEEN Timolol Maleate (Timolol Maleate 0.5 % Oph Maris 5 Ml Drbtl) 1 drop EYE-LEFT BID [facility] Last Admin: 03/25/23 08:07 Dose: 1 drop Documented By: JANEEN Labs 03/25/23 06:03 03/25/23 06:03 Labs: Laboratory Results - last 24 hr 03/25/23 06:03 MCV 95.0 MCH 32.0 MCHC 33.7 RDW 15.7 Plt Count 377 MPV 10.9 Absolute Nucleated RBC 0.020 H Nucleated RBC % (auto) 0.1 Anion Gap 14 Estim Creat Clear Calc 45.1 Estimated GFR > 60 Random Glucose 147 H Calcium 9.0 B-Natriuretic Peptide 531 H Microbiology Microbiology Results: Microbiology 03/23/23 06:29 Blood Culture - Preliminary Blood - Venous No growth after 48 hours. 03/23/23 06:29 Blood Culture - Preliminary Blood - Venous No growth after 48 hours. 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 Acute hypoxemic respiratory failure secondary to pneumonia, and Possible CHF component -improving, wean off O2, gaol of 88 to 82 Sepsis, PNA Ceftriaxone and Azithro follow WBC Anemia, acute blood loss anemia +occult blood, no indication for transufsion -For EGD tomorrow, deemed intermediate risk by cardiology and no further testing needed before procedure ? Acute diastolic CHF on admission, given IV Lasix in ED, no evidence of acute heart failure now, hold diuretics. Echo EF 65 to 70 glucoma :conitnue home eye drops dvt prophylax: scd. Quality Stroke Does the patient have a stroke diagnosis?: No VTE Prior VTE?: No VTE Risk Level:: Medical - moderate - high VTE Device Contraindication: N/A - Device Ordered VTE Drug Contraindication: N/A - Med Ordered
--- NOTE | 2023-03-25 16:32 | MHC.SHP ---
Pre-Procedural Eval Section A - 24 Hr Update-Section A only Date of Service: 03/26/23 The patient is an INPATIENT: Yes The patient has been examined within 24 hours of the surgical procedure. The History & Physical has been completed within 30 days and I have reviewed it.: Yes Section B - Complete if H&P > 30 days Chief Complaint: pneumonia, elevated troponins Allergies: Allergies Allergy/AdvReac Type Severity Reaction Status Date / Time Penicillins Allergy Unknown Verified 03/14/23 13:39 procaine [From Novocain] Allergy Unknown Verified 03/14/23 13:39 Plan I have reviewed the history and physical and performed a pertinent physical examination on my patient. No changes have occurred unless specified. Time Spent With Patient Time: Total time managing care of this patient today ____ minutes.
--- NOTE | 2023-03-25 16:32 | PM.EVENT ---
Event Note Date of Service: 03/25/23 Event Note: GI Follow up-Course noted. D/W Dr. Biggs. There has been no active bleeding. Her Hgb has improved and has remained stable. She has improved from a cardiopulmonary standpoint after transfusions, some diuresis, and IV antibiotics. I have tentatively scheduled her for an EGD on 03/26 pending her clinical course overnight and her medical assessment on 03/26 before the procedure. If she is not felt to be stable enough on 03/26 for the procedure and anesthesia, then the endoscopy can be postponed until things improve further. Thanks. Time Spent With Patient Time: Total time managing care of this patient today ____ minutes.
[2023-03-25] MEDS: Latanoprost 0.005 % Ophth Sol 2.5 ML DROPS 1 DROP EYE-LEFT (21:30)
[2023-03-25] MEDS: Labetalol HCL 100 MG/20 ML VIAL 10 MG IVPUSH (22:25)
[2023-03-26 03:24] VITALS: BP 139/63; PULSE 75; RESP 18; TEMP 36.8; O2SAT 93
[2023-03-26 07:05] VITALS: BP 158/67; PULSE 89; RESP 20; TEMP 36.4; O2SAT 95
[2023-03-26 07:45] LABS: Hemoglobin 9.6 g/dl (12.0-16.0); Mean Corpuscular HGB Conc 33.1 g/dl (31.0-35.0); Mean Corpuscular Hemoglobin 31.7 pg (27.0-33.0); Mean Corpuscular Volume 95.7 fL (80.0-98.0); Mean Platelet Volume 11.7 fL (9.4-12.3); Platelet Count 320 X10*3/uL (160-400); Red Blood Count 3.03 X10*6/uL (4.20-5.50); Red Cell Distribution Width 15.7 % (11.0-16.0); White Blood Count 12.6 X10*3/uL (4.8-10.8)
[2023-03-26] MEDS: timoloL maleate 0.5 % Oph Sol 5 ML DRBTL 1 DROP EYE-LEFT ×2 (09:13→20:35)
[2023-03-26] MEDS: Pantoprazole Sodium 40 MG/10 ML VIAL IVPUSH (09:13)
[2023-03-26] MEDS: prednisoLONE Acetate 1 % Oph Susp 5 ML DRPBTL 1 DROP EYE-RIGHT (09:13)
[2023-03-26] MEDS: Azithromycin 500 MG in 0.9 % Sodium Chloride 250 ML 125 MG IV (09:13)
[2023-03-26] MEDS: lisinopriL 20 MG TABLET PO (09:13)
[2023-03-26] MEDS: 0.9 % Sodium Chloride Flush 3 ML SYRINGE IVFLUSH ×2 (09:14→20:34)
--- NOTE | 2023-03-26 10:01 | P.PNIM_ITS ---
Subjective Subjective Date of Service: 03/26/23 Interval History: Shortness of breath is better, still very hypoxic on 6 liters and sating 95. She doesn't want EGD during this visit Physical Exam 2 Vital Signs: Vital Signs: Last Vital Signs Temp 97.6 F 03/26/23 07:05 Pulse 89 03/26/23 07:05 Resp 20 03/26/23 07:05 BP 158/67 H 03/26/23 07:05 Pulse Ox 95 03/26/23 07:05 O2 Del Method Nasal Cannula 03/26/23 07:05 O2 Flow Rate 6 03/26/23 07:05 Oxygen Flow Rate 4 03/23/23 06:08 BMI result Body Mass Index 23.3 Const: Other: General: AO X 3, no acute distress Resp: rales at bases, likely from ILD CVS: S1,S2,RRR, no led ecema GI: +BS, NT, no distention Skin: No rash Neuro: motor grossly intact Psych: appropriate affect Objective Data Active Medications Acetaminophen (Acetaminophen 325 Mg Tablet) 650 mg PO Q6H PRN PRN Reason: Pain, Mild (Pain Scale 1-3) Last Admin: 03/25/23 21:32 Dose: 650 mg Documented By: PENG Calcium Carbonate (Calcium Carbonate 500 Mg Tablet) 500 mg PO BID [facility] Last Admin: 03/26/23 09:13 Dose: 500 mg Documented By: GENA Guaifenesin (Guaifenesin 200 Mg/10 Ml 10 Ml Liquid) 10 ml PO Q4H PRN PRN Reason: Cough Last Admin: 03/25/23 21:30 Dose: 10 ml Documented By: PENG Guaifenesin (Guaifenesin 200 Mg/10 Ml 10 Ml Liquid) 10 ml PO Q4H PRN PRN Reason: Cough Ceftriaxone Sodium 1 gm/ (Sodium Chloride) 50 mls @ 100 mls/hr IV Q24H [facility] Last Infusion: 03/25/23 09:59 Dose: Infused Documented By: JANEEN Azithromycin 500 mg/ Sodium (Chloride) 250 mls @ 125 mls/hr IV Q24H [facility] Last Admin: 03/26/23 09:13 Dose: 125 mls/hr Documented By: GENA Latanoprost (Latanoprost 0.005 % Ophth Maris 2.5 Ml Drops) 1 drop EYE-LEFT BEDTIME [facility] Last Admin: 03/25/23 21:30 Dose: 1 drop Documented By: PENG Lisinopril (Lisinopril 20 Mg Tablet) 20 mg PO DAILY [facility]; Protocol Last Admin: 03/26/23 09:13 Dose: 20 mg Documented By: GENA Pantoprazole Sodium (Pantoprazole Sodium 40 Mg/10 Ml Vial) 40 mg IVPUSH BID [facility] Last Admin: 03/26/23 09:13 Dose: 40 mg Documented By: GENA Prednisolone Acetate (Prednisolone Acetate 1 % Oph Susp 5 Ml Drpbtl) 1 drop EYE-RIGHT DAILY [facility] Last Admin: 03/26/23 09:13 Dose: 1 drop Documented By: GENA Sodium Chloride (0.9 % Sodium Chloride Flush 3 Ml Syringe) 3 ml IVFLUSH QSHIFT [facility] Last Admin: 03/26/23 09:14 Dose: 3 ml Documented By: GENA Timolol Maleate (Timolol Maleate 0.5 % Oph Maris 5 Ml Drbtl) 1 drop EYE-LEFT BID [facility] Last Admin: 03/26/23 09:13 Dose: 1 drop Documented By: GENA Labs 03/26/23 06:28 03/25/23 06:03 Labs: Laboratory Results - last 24 hr 03/26/23 06:28 MCV 95.7 MCH 31.7 MCHC 33.1 RDW 15.7 Plt Count 320 MPV 11.7 Absolute Nucleated RBC 0.000 Nucleated RBC % (auto) 0.0 Microbiology Microbiology Results: Microbiology 03/23/23 06:29 Blood Culture - Preliminary Blood - Venous No growth after 48 hours. 03/23/23 06:29 Blood Culture - Preliminary Blood - Venous No growth after 48 hours. 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 Acute hypoxemic respiratory failure secondary to pneumonia -remains hypoxic -repeat CXR -improving, wean off O2, gaol of 88 to 82 -home O2 eval Sepsis, PNA Ceftriaxone and Azithro follow WBC, CXR as above Anemia, acute blood loss anemia +occult blood, no indication for transufsion -Offered EGD but she prefers her GI doctor doing it at a later date, discussed with her risk of delaying ? Acute diastolic CHF on admission, given IV Lasix in ED, no evidence of acute heart failure now, hold diuretics. Echo EF 65 to 70 glucoma :conitnue home eye drops dvt prophylax: scd. need for inpt: acute hypoxia needing much O2 which is been titrated for a safe level to discharge Quality Stroke Does the patient have a stroke diagnosis?: No VTE Prior VTE?: No VTE Risk Level:: Medical - moderate - high VTE Device Contraindication: N/A - Device Ordered VTE Drug Contraindication: N/A - Med Ordered
--- NOTE | 2023-03-26 10:19 | MHC.CM.PN ---
Per MD in [facility], Patient is still on 6L of O2 and is not yet medically cleared for dc; home is the goal and CM will continue to follow.
--- NOTE | 2023-03-26 10:21 | P.EN_ITS ---
Event Note Date of Service: 03/26/23 Event Note: GI Follow up-D/W Dr. Biggs. She has had no bleeding and her Hgb remains stable. Her EGD was canceled as she is refusing and would rather have it done with her primary GI MD in [place]. Also, her respiratory status may not be optimal as well given borderline O2 sats on 4-6L NC. Her diet has been advanced. I changed her to a po PPI. 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 Please advise me if I can be of any further assistance during her hospitalization. Thanks Time Spent With Patient Time: Total time managing care of this patient today ____ minutes.
[2023-03-26 11:03] VITALS: BP 145/65; PULSE 79; RESP 20; TEMP 36.3; O2SAT 88
[2023-03-26] MEDS: cefTRIAXone sodium 1 GM in 0.9 % Sodium Chloride 50 ML IV (12:00)
[2023-03-26] MEDS: Omeprazole 40 MG CAPSULE.DR PO (12:00)
[2023-03-26] MEDS: Acetaminophen 325 MG TABLET 650 MG PO ×2 (12:00→20:34)
[2023-03-26 14:49] VITALS: BP 141/67; PULSE 84; RESP 20; TEMP 36.7; O2SAT 90
[2023-03-26 19:29] VITALS: BP 147/63; PULSE 93; RESP 20; TEMP 36.8; O2SAT 92
[2023-03-26] MEDS: Latanoprost 0.005 % Ophth Sol 2.5 ML DROPS 1 DROP EYE-LEFT (20:35)
[2023-03-26] MEDS: guaiFENesin 200 MG/10 ML 10 ML LIQUID PO (20:35)
[2023-03-26] MEDS: clonazePAM 0.5 MG TABLET PO (23:26)
[2023-03-27] VITALS (9 sets, daily range): BP systolic 122–184; BP diastolic 59–90; PULSE 87–110; RESP 16–20; TEMP 35.8–37.1; O2SAT 90–99
[2023-03-27] MEDS: Omeprazole 40 MG CAPSULE.DR PO (05:39)
[2023-03-27] MEDS: 0.9 % Sodium Chloride Flush 3 ML SYRINGE IVFLUSH ×3 (08:36→21:24)
[2023-03-27] MEDS: clonazePAM 0.5 MG TABLET PO (08:36)
[2023-03-27] MEDS: timoloL maleate 0.5 % Oph Sol 5 ML DRBTL 1 DROP EYE-LEFT ×2 (08:36→21:18)
[2023-03-27] MEDS: prednisoLONE Acetate 1 % Oph Susp 5 ML DRPBTL 1 DROP EYE-RIGHT (08:36)
[2023-03-27] MEDS: cefTRIAXone sodium 1 GM in 0.9 % Sodium Chloride 50 ML IV (08:36)
[2023-03-27] MEDS: lisinopriL 20 MG TABLET PO (08:36)
[2023-03-27 08:39] LABS: Hematocrit 27.3 % (37.0-47.0); Mean Corpuscular Hemoglobin 31.3 pg (27.0-33.0); Mean Corpuscular Volume 94.8 fL (80.0-98.0); Mean Platelet Volume 10.6 fL (9.4-12.3); Platelet Count 264 X10*3/uL (160-400); Red Blood Count 2.88 X10*6/uL (4.20-5.50); Red Cell Distribution Width 15.8 % (11.0-16.0); White Blood Count 11.6 X10*3/uL (4.8-10.8)
[2023-03-27 08:50] LABS: Anion Gap 13 (12-20); Blood Urea Nitrogen 13 mg/dL (9-16); Calcium 8.9 mg/dL (8.4-10.2); Carbon Dioxide 25 mmol/L (22-29); Chloride 102 mmol/L (96-108); Creatinine Clr Calc Pharmacy 47.2; Estimated Glomerular Filt Rate > 60; Glucose Random 101 mg/dL (60-115); Potassium 3.4 mmol/L (3.3-5.1); Sodium 137 mmol/L (135-145)
[2023-03-27] MEDS: Azithromycin 500 MG in 0.9 % Sodium Chloride 250 ML 100 MG IV (09:30)
[2023-03-27] MEDS: Acetaminophen 325 MG TABLET 650 MG PO ×2 (09:30→21:22)
--- NOTE | 2023-03-27 11:46 | P.PNIM_ITS ---
Subjective Subjective Date of Service: 03/27/23 Interval History: Shortness of breath is better, still very hypoxic on 6 liters and sating 95. 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 CVS: S1,S2,RRR, no led ecema GI: +BS, NT, no distention Skin: No rash Neuro: motor grossly intact Psych: appropriate affect Objective Data Active Medications Acetaminophen (Acetaminophen 325 Mg Tablet) 650 mg PO Q6H PRN PRN Reason: Pain, Mild (Pain Scale 1-3) Last Admin: 03/27/23 09:30 Dose: 650 mg Documented By: JANEEN Calcium Carbonate (Calcium Carbonate 500 Mg Tablet) 500 mg PO BID [facility] Last Admin: 03/27/23 08:36 Dose: 500 mg Documented By: JANEEN Clonazepam (Clonazepam 0.5 Mg Tablet) 0.5 mg PO DAILY PRN PRN Reason: anxiety/restlessness Last Admin: 03/27/23 08:36 Dose: 0.5 mg Documented By: JANEEN Guaifenesin (Guaifenesin 200 Mg/10 Ml 10 Ml Liquid) 10 ml PO Q4H PRN PRN Reason: Cough Last Admin: 03/26/23 20:35 Dose: 10 ml Documented By: PENG Guaifenesin (Guaifenesin 200 Mg/10 Ml 10 Ml Liquid) 10 ml PO Q4H PRN PRN Reason: Cough Ceftriaxone Sodium 1 gm/ (Sodium Chloride) 50 mls @ 100 mls/hr IV Q24H [facility] Last Infusion: 03/27/23 09:32 Dose: Infused Documented By: JANEEN Azithromycin 500 mg/ Sodium (Chloride) 250 mls @ 125 mls/hr IV Q24H [facility] Last Admin: 03/27/23 09:30 Dose: 100 mls/hr Documented By: JANEEN Latanoprost (Latanoprost 0.005 % Ophth Maris 2.5 Ml Drops) 1 drop EYE-LEFT BEDTIME [facility] Last Admin: 03/26/23 20:35 Dose: 1 drop Documented By: PENG Lisinopril (Lisinopril 20 Mg Tablet) 20 mg PO DAILY [facility]; Protocol Last Admin: 03/27/23 08:36 Dose: 20 mg Documented By: JANEEN Omeprazole (Omeprazole 40 Mg Capsule.Dr) 40 mg PO DAILY@0630 [facility] Last Admin: 03/27/23 05:39 Dose: 40 mg Documented By: PENG Prednisolone Acetate (Prednisolone Acetate 1 % Oph Susp 5 Ml Drpbtl) 1 drop EYE-RIGHT DAILY [facility] Last Admin: 03/27/23 08:36 Dose: 1 drop Documented By: JANEEN Sodium Chloride (0.9 % Sodium Chloride Flush 3 Ml Syringe) 3 ml IVFLUSH QSHIFT [facility] Last Admin: 03/27/23 08:36 Dose: 3 ml Documented By: JANEEN Timolol Maleate (Timolol Maleate 0.5 % Oph Maris 5 Ml Drbtl) 1 drop EYE-LEFT BID [facility] Last Admin: 03/27/23 08:36 Dose: 1 drop Documented By: JANEEN Labs 03/27/23 08:19 03/27/23 08:19 Labs: Laboratory Results - last 24 hr 03/27/23 08:19 MCV 94.8 MCH 31.3 MCHC 33.0 RDW 15.8 Plt Count 264 MPV 10.6 Absolute Nucleated RBC 0.000 Nucleated RBC % (auto) 0.0 Anion Gap 13 Estim Creat Clear Calc 47.2 Estimated GFR > 60 Random Glucose 101 Calcium 8.9 Assessment and Plan (1) Guaiac positive stools: Status: Acute (2) CHF (congestive heart failure): Status: Acute Plan 84 y/o F with PMH significant for?HTN, glaucoma, macular degeneration, blind in right eye, and 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 Acute hypoxemic respiratory failure secondary to pneumonia -persistent hypoxia, not weaning well -repeat CXR 03/26 darin infiltrate -wean to a manageable home o2 Sepsis, PNA Ceftriaxone and Azithro follow WBC, CXR as above Anemia, acute blood loss anemia +occult blood, no indication for transufsion -Offered EGD but she prefers her GI doctor doing it at a later date, discussed with her risk of delaying ? Acute diastolic CHF on admission, given IV Lasix in ED, no evidence of acute heart failure now, hold diuretics. Echo EF 65 to 70 glucoma :conitnue home eye drops dvt prophylax: scd. need for inpt: acute hypoxia needing much O2 which is been titrated for a safe level to discharge Quality Stroke Does the patient have a stroke diagnosis?: No VTE Prior VTE?: No VTE Risk Level:: Medical - moderate - high VTE Device Contraindication: N/A - Device Ordered VTE Drug Contraindication: N/A - Med Ordered
--- NOTE | 2023-03-27 11:54 | P.PNCA_ITS ---
Subjective Subjective Date of Service: 03/27/23 Interval history: Seen examined at bedside. Still on supplemental oxygen. Coughing up phlegm. Physical Exam Vital Signs: Last Vital Signs Temp 98.4 F 03/27/23 11:27 Pulse 93 03/27/23 11:27 Resp 18 03/27/23 11:27 BP 184/90 H 03/27/23 11:27 Pulse Ox 99 03/27/23 11:27 O2 Del Method Room Air 03/27/23 11:27 O2 Flow Rate 4 03/27/23 11:13 Oxygen Flow Rate 4 03/23/23 06:08 BMI result Body Mass Index 23.3 GENERAL APPEARANCE: In no acute distress. On supplemental oxygen. Pleasant. NECK: no carotid bruit, no jugular venous distention. SKIN: no suspicious lesions, warm and dry. HEART: no murmurs, regular rate and rhythm. LUNGS: Bilateral rhonchi. ABDOMEN: soft, nontender. EXTREMITIES: no edema. PERIPHERAL PULSES: equal. NEUROLOGIC: No gross deficits, AAO X 3 Objective Labs and Meds 03/27/23 08:19 03/27/23 08:19 Lab results: Laboratory Results - last 24 hr 03/27/23 08:19 WBC 11.6 H RBC 2.88 L Hgb 9.0 L Hct 27.3 L MCV 94.8 MCH 31.3 MCHC 33.0 RDW 15.8 Plt Count 264 MPV 10.6 Absolute Nucleated RBC 0.000 Nucleated RBC % (auto) 0.0 Sodium 137 Potassium 3.4 Chloride 102 Carbon Dioxide 25 Anion Gap 13 BUN 13 Creatinine 0.66 Estim Creat Clear Calc 47.2 Estimated GFR > 60 Random Glucose 101 Calcium 8.9 Progress Note: A&P Assessment and plan (1) Bilateral pneumonia: Status: Acute (2) HTN (hypertension): Status: Acute Plan Piotr 83-year-old female who is presenting for anemia and bilateral pneumonia. She has background history of aortic valve replacement as well as single-vessel bypass surgery. She was not unstable from cardiovascular point of view and most of symptoms but due to pneumonia. Does not need IV diuretics currently. Blood pressure is elevated and would recommend adding low-dose amlodipine 2.5 mg daily along with her lisinopril. She is known to Dr. Britton at [facility]. Thank you for allowing me to participate in the care of your patient. Please feel free to contact me if you have any questions. Time Spent With Patient Time: Total time managing care of this patient today ____ minutes. Progress Note: Quality Stroke Does the patient have a stroke diagnosis?: No Procedures Date of Service Date of Service: 03/27/23
[2023-03-27] MEDS: guaiFENesin 200 MG/10 ML 10 ML LIQUID PO (21:17)
[2023-03-27] MEDS: Latanoprost 0.005 % Ophth Sol 2.5 ML DROPS 1 DROP EYE-LEFT (21:18)
[2023-03-28] VITALS (11 sets, daily range): BP systolic 118–165; BP diastolic 56–92; PULSE 70–109; RESP 15–22; TEMP 36.1–37.1; O2SAT 85–96
[2023-03-28] MEDS: Omeprazole 40 MG CAPSULE.DR PO (05:23)
[2023-03-28] MEDS: Acetaminophen 325 MG TABLET 650 MG PO ×2 (05:32→21:23)
[2023-03-28] MEDS: guaiFENesin 200 MG/10 ML 10 ML LIQUID PO (09:09)
[2023-03-28] MEDS: lisinopriL 20 MG TABLET PO (09:09)
[2023-03-28] MEDS: 0.9 % Sodium Chloride Flush 3 ML SYRINGE IVFLUSH ×2 (09:16→17:39)
[2023-03-28] MEDS: clonazePAM 0.5 MG TABLET PO (09:28)
[2023-03-28] MEDS: Latanoprost 0.005 % Ophth Sol 2.5 ML DROPS 1 DROP EYE-LEFT (09:29)
[2023-03-28] MEDS: prednisoLONE Acetate 1 % Oph Susp 5 ML DRPBTL 1 DROP EYE-RIGHT (09:29)
[2023-03-28] MEDS: timoloL maleate 0.5 % Oph Sol 5 ML DRBTL 1 DROP EYE-LEFT ×2 (09:29→21:15)
[2023-03-28 09:42] LABS: ABG Base Excess 4.3 mmol/L; ABG HCO3 27 mmol/L (22-26); ABG pCO2 37 mmHg (32-45); ABG pH 7.48 (7.35-7.45); ABG pO2 75 mmHg (83-108)
[2023-03-28] MEDS: Azithromycin 500 MG in 0.9 % Sodium Chloride 250 ML 100 MG IV (10:15)
[2023-03-28] MEDS: cefTRIAXone sodium 1 GM in 0.9 % Sodium Chloride 50 ML IV (10:20)
[2023-03-28 10:51] LABS: Creatinine Clr Calc Pharmacy 47.9; Estimated Glomerular Filt Rate > 60
--- NOTE | 2023-03-28 11:49 | MHC.CM.PN ---
EMR REVIEWED AND PER MD ROUNDS, PT IS NOT MEDICALLY CLEARED FOR DC (INCREASED 02 NEEDS) PT IS OPEN TO HOME SERVICES ON DC, NO PREFERENCE TO AN AGENCY. REFERRAL SENT TO [facility]. CM WILL CONTINUE TO FOLLOW FOR ANY CHANGE IN DC PLAN/NEEDS.
[2023-03-28] MEDS: vancomycin HCL 1,250 MG in 0.9 % Sodium Chloride 250 ML 166.67 MG IV (12:00)
[2023-03-28] MEDS: Furosemide 20 MG/2 ML VIAL IVPUSH (12:03)
[2023-03-28] MEDS: methylPREDNISolone Sod Succ 125 MG/2 ML VIAL 60 MG IVPUSH ×2 (12:03→17:37)
--- NOTE | 2023-03-28 12:27 | PHA.PROG ---
Admission Date/Time: March 23, 2023 10:03 Indication: pneumonia Weight in k.2 kg Serum Creatinine - Last 168 Hours 03/23/23 03/24/23 03/25/23 05:57 05:37 06:03 Creatinine 0.72 0.68 0.69 03/27/23 03/28/23 08:19 10:24 Creatinine 0.66 0.65 Estimated CrCl and GFR - Last 168 Hours 03/23/23 03/24/23 03/25/23 05:57 05:37 06:03 Estim Creat Clear Calc 43.3 45.8 45.1 Estimated GFR > 60 > 60 > 60 03/27/23 03/28/23 08:19 10:24 Estim Creat Clear Calc 47.2 47.9 Estimated GFR > 60 > 60 Vancomycin Loading Dose: 1,250mg Current Vancomycin Dosing Regimen: 1,250mg q24h Vancomycin Monitoring using AUC goal of 400 - 600 range with trough as surrogate marker: 493 Date and Time for next Vancomycin Level to be drawn: 03/31 @ 10:00 Pharmacist Comments on Vancomycin Plan: Vancomycin dosing will take advantage of [employer] as a clinical decision support tool that uses Bayesian modeling to calculate individual patient's pharmacokinetic parameters and forecast the patient's drug concentration time course with the target goal AUC 24 range of 400 - 600 mg/L/hr.
--- NOTE | 2023-03-28 12:48 | PM.CNPUL ---
History of Present Illness History of Present Illness Consult date: 03/28/23 Chief complaint: pneumonia, elevated troponins Narrative: This is an inpatient pulmonary consultation. 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 Denies any sick contact or travel or antibiotic use. She says seems think-URI like symptoms started after dental dental visit 2 weeks ago. currently denies any chest pain but feels congested , or abdominal pain or fever or chills or nausea or vomiting or any weakness or numbness. The patient was brought to the [facility] ED where she was admitted to the hospital for acute respiratory failure and pneumonia. She was placed on antibiotics for community-acquired pneumonia. Although she has been having worsening respiratory symptoms. She is having issues with further hypoxia now on a 15 L OxyMask. We did do a blood gas again consistent with her degree of hypoxia and respiratory alkalosis due to her tachypnea. The patient also had a CT scan of the chest that was personally by me demonstrating multilobar airspace disease some areas of were ground-glass in nature. Bringing up the question of underlying COVID or other viral syndromes. The patient did have an echocardiogram she had a normal EF. Will go ahead and start her on some Solu-Medrol in the meantime also broaden her antibiotic coverage to add anti Staph aureus antimicrobial therapy. Would be reasonable to give her 1 dose of Lasix for further diuresis. Although she appears to be euvolemic. Review of Systems Constitutional: Constitutional: Reports fatigue and Denies fever(s) ENT: Denies nasal obstruction Cardiovascular: Cardiovascular: Denies chest pain, Reports dyspnea and Reports dyspnea on exertion Respiratory: Respiratory: Reports cough, Reports dyspnea, Reports dyspnea on exertion and Denies wheezing Gastrointestinal: Gastrointestinal: Reports no additional gastrointestinal complaints Musculoskeletal: Musculoskeletal: Reports myalgias Neurologic: Reports system reviewed and no additional complaints, except as documented Endocrine: Endocrine: Reports fatigue Hematologic/Lymphatic: Hematologic/Lymphatic: Denies lymphadenopathy Allergic/Immunologic: Allergic/Immunologic: Denies wheezing PMFSH Past Medical History Medical History Retinal hemorrhage Macular degeneration Family History Family History Sister Stroke Mother Acute CHF Surgical History Surgical History Heart valve replaced Social History Social History Household Members: None Housing: House Do you presently have visiting nurse or other home services: No Alcohol intake: current Alcohol intake frequency: holidays/special occasions only Alcohol type: wine Patient Tobacco Use Status: Former Tobacco user Cigarette Packs Per Day: 2 Years Smoked: 40 Second Hand Smoke Exposure: No service: No Current occupational status: retired [employer] Allergies Allergy/AdvReac Type Severity Reaction Status Date / Time Penicillins Allergy Unknown Verified 03/14/23 13:39 procaine [From Novocain] Allergy Unknown Verified 03/14/23 13:39 Active Medications: Current Medications Acetaminophen (Acetaminophen 325 Mg Tablet) 650 mg PO Q6H PRN PRN Reason: Pain, Mild (Pain Scale 1-3) Last Admin: 03/28/23 05:32 Dose: 650 mg Calcium Carbonate (Calcium Carbonate 500 Mg Tablet) 500 mg PO BID [facility] Last Admin: 03/28/23 09:09 Dose: 500 mg Clonazepam (Clonazepam 0.5 Mg Tablet) 0.5 mg PO DAILY PRN PRN Reason: anxiety/restlessness Last Admin: 03/28/23 09:28 Dose: 0.5 mg Guaifenesin (Guaifenesin 200 Mg/10 Ml 10 Ml Liquid) 10 ml PO Q4H PRN PRN Reason: Cough Last Admin: 03/28/23 09:09 Dose: 10 ml Guaifenesin (Guaifenesin 200 Mg/10 Ml 10 Ml Liquid) 10 ml PO Q4H PRN PRN Reason: Cough Ceftriaxone Sodium 1 gm/ (Sodium Chloride) 50 mls @ 100 mls/hr IV Q24H [facility] Last Infusion: 03/27/23 09:32 Dose: Infused Azithromycin 500 mg/ Sodium (Chloride) 250 mls @ 125 mls/hr IV Q24H [facility] Last Admin: 03/28/23 10:15 Dose: 100 mls/hr Vancomycin HCl 1,250 mg/ (Sodium Chloride) 250 mls @ 166.667 mls/hr IV Q24H [facility] Latanoprost (Latanoprost 0.005 % Ophth Maris 2.5 Ml Drops) 1 drop EYE-LEFT BEDTIME [facility] Last Admin: 03/28/23 09:29 Dose: 1 drop Lisinopril (Lisinopril 20 Mg Tablet) 20 mg PO DAILY [facility]; Protocol Last Admin: 03/28/23 09:09 Dose: 20 mg Methylprednisolone Sodium Succinate (Methylprednisolone Sod Succ 125 Mg/2 Ml Vial) 60 mg IVPUSH Q8H [facility] Last Admin: 03/28/23 12:03 Dose: 60 mg Omeprazole (Omeprazole 40 Mg Capsule.Dr) 40 mg PO DAILY@0630 [facility] Last Admin: 03/28/23 05:23 Dose: 40 mg Pharmacy Consult (Consult Rx Vancomycin Dosing) 1 each MISCELLANE DAILY PRN PRN Reason: Consult order Prednisolone Acetate (Prednisolone Acetate 1 % Oph Susp 5 Ml Drpbtl) 1 drop EYE-RIGHT DAILY [facility] Last Admin: 03/28/23 09:29 Dose: 1 drop Sodium Chloride (0.9 % Sodium Chloride Flush 3 Ml Syringe) 3 ml IVFLUSH QSHIFT [facility] Last Admin: 03/28/23 09:16 Dose: 3 ml Timolol Maleate (Timolol Maleate 0.5 % Oph Maris 5 Ml Drbtl) 1 drop EYE-LEFT BID [facility] Last Admin: 03/28/23 09:29 Dose: 1 drop Home Medications Medication Instructions Recorded Confirmed Last Taken Type latanoprost 0.005 % eye drops 1 drp ophthalmic-Left BEDTIME 03/20/22 03/23/23 03/22/23 History lisinopril 5 mg tablet 1 tab PO DAILY 03/20/22 03/23/23 03/23/23 History prednisolone acetate 1 % eye 1 drp ophthalmic-Right DAILY 03/20/22 03/23/23 03/22/23 History drops,suspension timolol maleate 0.5 % eye drops 1 drp ophthalmic-Left BID 03/20/22 03/23/23 03/22/23 History calcium carbonate 500 mg calcium 500 mg PO BID 03/23/23 03/23/23 03/22/23 History (1,250 mg) tablet diclofenac sodium 1 % topical gel 2 g topical QID PRN Pain 03/23/23 03/23/23 Unknown History omeprazole 10 mg capsule,delayed 10 mg PO DAILY@0630 03/23/23 03/23/23 03/23/23 History release Physical Exam Vital Signs: Vital Signs: Last Vital Signs Temp 98.7 F 03/28/23 11:49 Pulse 86 03/28/23 11:49 Resp 20 03/28/23 11:49 BP 143/92 H 03/28/23 11:49 Pulse Ox 93 03/28/23 11:49 O2 Del Method High Flow Nasal C annula 03/28/23 11:49 O2 Flow Rate 40 03/28/23 11:49 FiO2 60 03/28/23 11:49 Oxygen Flow Rate 4 03/23/23 06:08 BMI result Body Mass Index 23.3 Const: General: comfortable HEENT: Head: Yes normocephalic Neck: Neck: Yes supple Chest: Chest palpation & inspection: normal inspection of the chest Resp: Effort & Inspection: normal respiratory effort Auscultation: rales, rhonchi and diminished lung sounds Cardio: Heart sounds: S1 normal heart sound present and S2 normal heart sound present GI: Palpation (GI): Soft to palpation Skin: General skin exam: no rashes or lesions noted Extrem: General: Yes no clubbing, cyanosis or edema Results Laboratory Findings 03/27/23 08:19 03/28/23 10:24 Abnormal lab findings: Abnormal Labs 03/23/23 03/23/23 03/23/23 05:57 06:29 07:31 WBC 17.0 H RBC 2.36 L D Hgb 7.5 L D Hct 22.8 L D RDW 16.4 H Plt Count 440 H D Immature Gran % (Auto) 2.8 H Neut % (Auto) 81.8 H Lymph % (Auto) 6.5 L Lymph # (Auto) 1.1 L Abs Immat Gran (auto) 0.48 H Absolute Neuts (auto) 13.9 H Absolute Nucleated RBC 0.030 H ABG pH at Pt Temp ABG pO2 at Pt Temp ABG HCO3 Random Glucose 197 H Fasting Glucose Iron TIBC % Saturation Ferritin AST 63 H ALT 57 H Troponin I High Sens 39.5 H D B-Natriuretic Peptide 635 H Albumin 2.8 L Vitamin B12 Crossmatch See Detail 03/23/23 03/23/23 03/24/23 08:57 19:15 05:37 WBC 12.6 H RBC 2.79 L Hgb 9.5 L D 9.0 L Hct 28.3 L D 27.1 L RDW Plt Count Immature Gran % (Auto) Neut % (Auto) Lymph % (Auto) Lymph # (Auto) Abs Immat Gran (auto) Absolute Neuts (auto) Absolute Nucleated RBC ABG pH at Pt Temp ABG pO2 at Pt Temp ABG HCO3 Random Glucose Fasting Glucose 119 H Iron 10 L TIBC 106 L % Saturation 9 L Ferritin 1300 H AST ALT Troponin I High Sens 51.1 H* B-Natriuretic Peptide Albumin Vitamin B12 1392 H Crossmatch 03/25/23 03/26/23 03/27/23 06:03 06:28 08:19 WBC 14.5 H 12.6 H 11.6 H RBC 3.00 L 3.03 L 2.88 L Hgb 9.6 L 9.6 L 9.0 L Hct 28.5 L 29.0 L 27.3 L RDW Plt Count Immature Gran % (Auto) Neut % (Auto) Lymph % (Auto) Lymph # (Auto) Abs Immat Gran (auto) Absolute Neuts (auto) Absolute Nucleated RBC 0.020 H ABG pH at Pt Temp ABG pO2 at Pt Temp ABG HCO3 Random Glucose 147 H Fasting Glucose Iron TIBC % Saturation Ferritin AST ALT Troponin I High Sens B-Natriuretic Peptide 531 H Albumin Vitamin B12 Crossmatch 03/28/23 09:34 WBC RBC Hgb Hct RDW Plt Count Immature Gran % (Auto) Neut % (Auto) Lymph % (Auto) Lymph # (Auto) Abs Immat Gran (auto) Absolute Neuts (auto) Absolute Nucleated RBC ABG pH at Pt Temp 7.48 H ABG pO2 at Pt Temp 75 L ABG HCO3 27 H Random Glucose Fasting Glucose Iron TIBC % Saturation Ferritin AST ALT Troponin I High Sens B-Natriuretic Peptide Albumin Vitamin B12 Crossmatch Microbiology: Microbiology 03/23/23 06:29 Blood - Venous Blood Culture - Final No growth after 5 days. 03/23/23 06:29 Blood - Venous Blood Culture - Final No growth after 5 days. Assessment and Plan (1) Acute hypoxic respiratory failure: Status: Acute (2) Bilateral pneumonia: Qualifiers: Pneumonia type: due to unspecified organism Lung location: unspecified part of lung Qualified Code(s): J18.9 - Pneumonia, unspecified organism Status: Acute Plan respiratory viral panel Add Vancomycin for severe CAP switch to HF Start Solumedrol MRSA screen lasix x 1 Procedures Date of Service Date of Service: 03/28/23
--- NOTE | 2023-03-28 13:34 | P.PNIM_ITS ---
Subjective Subjective Date of Service: 03/28/23 Interval History: Feels depressed due to persistent hypoxia, denies shortness of breath, denies cough no chest pain, no lightheadedness, no dizziness no overnight events. This morning Oxygenation dropped to 85% therefore placed on 15 L OxyMask. Denies nausea, vomiting, abdominal pain, tolerating diet, no fevers, no chills. Review of Systems All other system reviewed and negative Physical Exam 2 Vital Signs: Vital Signs: Last Vital Signs Temp 98.7 F 03/28/23 11:49 Pulse 86 03/28/23 11:49 Resp 20 03/28/23 11:49 BP 143/92 H 03/28/23 11:49 Pulse Ox 93 03/28/23 11:49 O2 Del Method High Flow Nasal C annula 03/28/23 11:49 O2 Flow Rate 40 03/28/23 11:49 FiO2 60 03/28/23 11:49 Oxygen Flow Rate 4 03/23/23 06:08 BMI result Body Mass Index 23.3 Const: Other: General awake alert x3, resting comfortably in no acute distress. Neck supple no JVD. CVS regular rate rhythm, Respiratory lungs bilateral rhonchi/diminished breath sounds no use of accessory muscles Gastrointestinal abdomen soft, non tender, bowel sounds audible, no guarding , no rigidity. Extremities no edema. Neuro nonfocal Skin no rash Psych appropriate affect Objective Data Active Medications Acetaminophen (Acetaminophen 325 Mg Tablet) 650 mg PO Q6H PRN PRN Reason: Pain, Mild (Pain Scale 1-3) Last Admin: 03/28/23 05:32 Dose: 650 mg Documented By: ERIC Calcium Carbonate (Calcium Carbonate 500 Mg Tablet) 500 mg PO BID [facility]EL[facility] Last Admin: 03/28/23 09:09 Dose: 500 mg Documented By: TARIK Clonazepam (Clonazepam 0.5 Mg Tablet) 0.5 mg PO DAILY PRN PRN Reason: anxiety/restlessness Last Admin: 03/28/23 09:28 Dose: 0.5 mg Documented By: TARIK Guaifenesin (Guaifenesin 200 Mg/10 Ml 10 Ml Liquid) 10 ml PO Q4H PRN PRN Reason: Cough Last Admin: 03/28/23 09:09 Dose: 10 ml Documented By: TARIK Guaifenesin (Guaifenesin 200 Mg/10 Ml 10 Ml Liquid) 10 ml PO Q4H PRN PRN Reason: Cough Ceftriaxone Sodium 1 gm/ (Sodium Chloride) 50 mls @ 100 mls/hr IV Q24H [facility] Last Admin: 03/28/23 10:20 Dose: 100 mls/hr Documented By: TARIK Azithromycin 500 mg/ Sodium (Chloride) 250 mls @ 125 mls/hr IV Q24H [facility] Last Admin: 03/28/23 10:15 Dose: 100 mls/hr Documented By: TARIK Vancomycin HCl 1,250 mg/ (Sodium Chloride) 250 mls @ 166.667 mls/hr IV Q24H [facility] Latanoprost (Latanoprost 0.005 % Ophth Maris 2.5 Ml Drops) 1 drop EYE-LEFT BEDTIME [facility] Last Admin: 03/28/23 09:29 Dose: 1 drop Documented By: TARIK Lisinopril (Lisinopril 20 Mg Tablet) 20 mg PO DAILY [facility]; Protocol Last Admin: 03/28/23 09:09 Dose: 20 mg Documented By: TARIK Methylprednisolone Sodium Succinate (Methylprednisolone Sod Succ 125 Mg/2 Ml Vial) 60 mg IVPUSH Q8H [facility] Last Admin: 03/28/23 12:03 Dose: 60 mg Documented By: TARIK Omeprazole (Omeprazole 40 Mg Capsule.Dr) 40 mg PO DAILY@0630 [facility] Last Admin: 03/28/23 05:23 Dose: 40 mg Documented By: ERIC Pharmacy Consult (Consult Rx Vancomycin Dosing) 1 each MISCELLANE DAILY PRN PRN Reason: Consult order Prednisolone Acetate (Prednisolone Acetate 1 % Oph Susp 5 Ml Drpbtl) 1 drop EYE-RIGHT DAILY [facility] Last Admin: 03/28/23 09:29 Dose: 1 drop Documented By: TARIK Sodium Chloride (0.9 % Sodium Chloride Flush 3 Ml Syringe) 3 ml IVFLUSH QSHIFT [facility] Last Admin: 03/28/23 09:16 Dose: 3 ml Documented By: TARIK Timolol Maleate (Timolol Maleate 0.5 % Oph Maris 5 Ml Drbtl) 1 drop EYE-LEFT BID [facility] Last Admin: 03/28/23 09:29 Dose: 1 drop Documented By: TARIK Labs 03/27/23 08:19 03/28/23 10:24 Labs: Laboratory Results - last 24 hr 03/28/23 03/28/23 09:34 10:24 O2 Saturation 95.0 ABG pH at Pt Temp 7.48 H ABG pCO2 at Pt Temp 37 ABG pO2 at Pt Temp 75 L ABG HCO3 27 H ABG Base Excess (Actual) 4.3 Estim Creat Clear Calc 47.9 Estimated GFR > 60 Microbiology Microbiology Results: Microbiology 03/23/23 06:29 Blood Culture - Final Blood - Venous No growth after 5 days. 03/23/23 06:29 Blood Culture - Final Blood - Venous No growth after 5 days. 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 Acute hypoxemic respiratory failure secondary to pneumonia with sepsis -noted to have worsening hypoxia this am chest CT 03/27 showed multilobar infiltrate, small pleural effusion, moderate size reactive mediastinal lymph nodes Consulted pulmonology patient placed on high-flow oxygen, IV steroids and IV vancomycin in addition to current IV ceftriaxone and azithromycin, received 1 dose of IV Lasix Continue supportive care wean oxygen as tolerated, follow clinical course closely. , Anemia, acute blood loss anemia +occult blood, no indication for transufsion, hematocrit improved and stable -Offered EGD but she prefers her GI doctor doing it at a later date, discussed with her risk of delaying ? Acute diastolic CHF on admission, given IV Lasix in ED, no evidence of acute heart failure now, hold diuretics. Echo EF 65 to 70 glucoma :conitnue home eye drops. dvt prophylax: scd. need for inpt: acute hypoxia requiring high-flow oxygen and IV antibiotics for pneumonia with sepsis. Quality Stroke Does the patient have a stroke diagnosis?: No VTE Prior VTE?: No VTE Risk Level:: Medical - moderate - high VTE Device Contraindication: N/A - Device Ordered VTE Drug Contraindication: N/A - Med Ordered
[2023-03-28 14:05] LABS: ABG Refer to POC result
[2023-03-29] VITALS (17 sets, daily range): BP systolic 133–162; BP diastolic 60–77; PULSE 69–107; RESP 16–25; TEMP 36–36.4; O2SAT 79–98
[2023-03-29] MEDS: 0.9 % Sodium Chloride Flush 3 ML SYRINGE IVFLUSH ×3 (00:20→16:41)
[2023-03-29] MEDS: methylPREDNISolone Sod Succ 125 MG/2 ML VIAL 60 MG IVPUSH ×3 (02:53→16:38)
[2023-03-29] MEDS: Acetaminophen 325 MG TABLET 650 MG PO ×2 (03:38→21:25)
[2023-03-29] MEDS: guaiFENesin 200 MG/10 ML 10 ML LIQUID PO ×2 (03:38→22:50)
[2023-03-29] MEDS: Omeprazole 40 MG CAPSULE.DR PO (05:42)
[2023-03-29 07:33] LABS: Hematocrit 26.9 % (37.0-47.0); Hemoglobin 8.7 g/dl (12.0-16.0); Mean Corpuscular HGB Conc 32.3 g/dl (31.0-35.0); Mean Corpuscular Hemoglobin 31.2 pg (27.0-33.0); Mean Corpuscular Volume 96.4 fL (80.0-98.0); NRBC Pct Auto 0.4 /100WBC (0.0-0.2); Red Blood Count 2.79 X10*6/uL (4.20-5.50); Red Cell Distribution Width 15.6 % (11.0-16.0); White Blood Count 4.6 X10*3/uL (4.8-10.8)
[2023-03-29 07:50] LABS: Anion Gap 15 (12-20); Blood Urea Nitrogen 21 mg/dL (9-16); Carbon Dioxide 24 mmol/L (22-29); Chloride 101 mmol/L (96-108); Creatinine Clr Calc Pharmacy 48.6; Estimated Glomerular Filt Rate > 60; Glucose Random 167 mg/dL (60-115); Potassium 4.2 mmol/L (3.3-5.1); Sodium 136 mmol/L (135-145)
[2023-03-29] MEDS: lisinopriL 20 MG TABLET PO (08:00)
[2023-03-29 08:28] LABS: Mean Platelet Volume 11.9 fL (9.4-12.3); Platelet Count 150 X10*3/uL (160-400)
[2023-03-29] MEDS: Furosemide 100 MG/10 ML VIAL 60 MG IVPUSH (10:49)
[2023-03-29] MEDS: cefTRIAXone sodium 1 GM in 0.9 % Sodium Chloride 50 ML IV (10:50)
[2023-03-29] MEDS: timoloL maleate 0.5 % Oph Sol 5 ML DRBTL 1 DROP EYE-LEFT ×2 (10:56→21:27)
[2023-03-29] MEDS: prednisoLONE Acetate 1 % Oph Susp 5 ML DRPBTL 1 DROP EYE-RIGHT (10:57)
[2023-03-29] MEDS: Azithromycin 500 MG in 0.9 % Sodium Chloride 250 ML 100 MG IV (11:03)
--- NOTE | 2023-03-29 11:08 | P.PNCA_ITS ---
Subjective Subjective Date of Service: 03/29/23 Interval history: Seen examined at bedside. On high-flow oxygen at this point. CT scan yesterday has shown bilateral effusions with bilateral lung infiltrates pneumonia. Physical Exam Vital Signs: Last Vital Signs Temp 97.2 F 03/29/23 07:18 Pulse 98 03/29/23 10:20 Resp 20 03/29/23 10:20 BP 162/77 H 03/29/23 07:18 Pulse Ox 92 03/29/23 10:20 O2 Del Method High Flow Nasal Cannula 03/29/23 10:20 O2 Flow Rate 40 03/29/23 10:20 FiO2 100 03/29/23 10:20 Oxygen Flow Rate 4 03/23/23 06:08 BMI result Body Mass Index 23.3 GENERAL APPEARANCE: In no acute distress. On high-flow oxygen. NECK: no carotid bruit, mild jugular venous distention. SKIN: no suspicious lesions, warm and dry. HEART: no murmurs, regular rate and rhythm. LUNGS: Bilateral crackles.. ABDOMEN: soft, nontender. EXTREMITIES: no edema. PERIPHERAL PULSES: equal. NEUROLOGIC: No gross deficits, AAO X 3 Objective Labs and Meds 03/29/23 06:44 03/29/23 06:44 Lab results: Laboratory Results - last 24 hr 03/29/23 06:44 WBC 4.6 L RBC 2.79 L Hgb 8.7 L Hct 26.9 L MCV 96.4 MCH 31.2 MCHC 32.3 RDW 15.6 Plt Count 150 L D MPV 11.9 Absolute Nucleated RBC 0.020 H Nucleated RBC % (auto) 0.4 H Sodium 136 Potassium 4.2 D Chloride 101 Carbon Dioxide 24 Anion Gap 15 BUN 21 H Creatinine 0.64 Estim Creat Clear Calc 48.6 Estimated GFR > 60 Random Glucose 167 H Calcium 9.0 Progress Note: A&P Assessment and plan (1) Acute hypoxic respiratory failure: Status: Acute Plan [age] year female with bioprosthetic aortic valve replacement and single- vessel bypass surgery in the past who presented with severe pneumonia involving both lungs. She was treated with antibiotics and was improving but oxygen demand is increasing and she is on high-flow oxygen at this point. Previously it was felt that she has not in congestive heart failure. She has mild JVD and bilateral crackles which I think are not all due to fluid and probably due to pneumonia. In any case recommend giving her IV diuretics to see if change her oxygen demand happens. If oxygen demand is changing then would continue IV diuresis. On the other hand if there is no change in oxygen demand and this is all related to pneumonia. Adding Imdur 30 mg once a day. Incentive spirometry. Thank you for allowing me to participate in the care of your patient. Please feel free to contact me if you have any questions. Time Spent With Patient Time: Total time managing care of this patient today ____ minutes. Progress Note: Quality Stroke Does the patient have a stroke diagnosis?: No Procedures Date of Service Date of Service: 03/29/23
[2023-03-29 12:09] LABS: MRSA Nasal PCR NEGATIVE (Negative); SA Nasal PCR NEGATIVE (Negative)
[2023-03-29] MEDS: Isosorbide Mononitrate 30 MG TAB.ER.24H PO (12:10)
--- NOTE | 2023-03-29 12:30 | P.PNIM_ITS ---
Subjective Subjective Date of Service: 03/29/23 Interval History: Patient awake alert, sitting comfortably, denies chest pain, no shortness of breath no palpitations, no headache, no dizziness tolerating diet, requiring 100% high-flow oxygen finger oximetry 92-93%, using incentive spirometry Review of Systems All other system reviewed and negative Physical Exam 2 Vital Signs: Vital Signs: Last Vital Signs Temp 96.9 F 03/29/23 11:42 Pulse 69 03/29/23 11:42 Resp 18 03/29/23 11:42 BP 157/72 H 03/29/23 11:42 Pulse Ox 95 03/29/23 11:42 O2 Del Method High Flow Nasal C annula 03/29/23 11:42 O2 Flow Rate 29 03/29/23 11:42 FiO2 90 03/29/23 11:42 Oxygen Flow Rate 4 03/23/23 06:08 BMI result Body Mass Index 23.3 Const: Other: General awake aler t x3, resting comf ortably in no acut e distress. Neck supple no JVD. CV S regular rate rh ythm, Respiratory lungs bilateral cr ackles /diminished breath sounds, no use of accessory muscles Gastroint estinal abdomen so ft, non tender, eliazar wel sounds audible , no guarding , no rigidity. Extremi ties no edema. Aracely ro non focal Skin no rash Psych glenn ropriate affect Objective Data Active Medications Acetaminophen (Acetaminophen 325 Mg Tablet) 650 mg PO Q6H PRN PRN Reason: Pain, Mild (Pain Scale 1-3) Last Admin: 03/29/23 03:38 Dose: 650 mg Documented By: KIMBERLY Calcium Carbonate (Calcium Carbonate 500 Mg Tablet) 500 mg PO BID [facility] Last Admin: 03/29/23 07:59 Dose: 500 mg Documented By: MARIA DOLORES Clonazepam (Clonazepam 0.5 Mg Tablet) 0.5 mg PO DAILY PRN PRN Reason: anxiety/restlessness Last Admin: 03/28/23 09:28 Dose: 0.5 mg Documented By: TARIK Guaifenesin (Guaifenesin 200 Mg/10 Ml 10 Ml Liquid) 10 ml PO Q4H PRN PRN Reason: Cough Last Admin: 03/29/23 03:38 Dose: 10 ml Documented By: KIMBERLY Guaifenesin (Guaifenesin 200 Mg/10 Ml 10 Ml Liquid) 10 ml PO Q4H PRN PRN Reason: Cough Ceftriaxone Sodium 1 gm/ (Sodium Chloride) 50 mls @ 100 mls/hr IV Q24H [facility] Last Infusion: 03/29/23 11:42 Dose: Infused Documented By: TAMARA-RIVLA Azithromycin 500 mg/ Sodium (Chloride) 250 mls @ 125 mls/hr IV Q24H [facility] Last Admin: 03/29/23 11:03 Dose: 100 mls/hr Documented By: MARIA DOLORES Vancomycin HCl 1,250 mg/ (Sodium Chloride) 250 mls @ 166.667 mls/hr IV Q24H [facility] Isosorbide Mononitrate (Isosorbide Mononitrate 30 Mg Tab.Er.24h) 30 mg PO DAILY [facility]; Protocol Last Admin: 03/29/23 12:10 Dose: 30 mg Documented By: MARIA DOLORES Latanoprost (Latanoprost 0.005 % Ophth Maris 2.5 Ml Drops) 1 drop EYE-LEFT BEDTIME [facility] Last Admin: 03/29/23 10:56 Dose: Not Given Documented By: MARIA DOLORES Non-Admin Reason: Previously Administered Lisinopril (Lisinopril 20 Mg Tablet) 20 mg PO DAILY [facility]; Protocol Last Admin: 03/29/23 08:00 Dose: 20 mg Documented By: MARIA DOLORES Methylprednisolone Sodium Succinate (Methylprednisolone Sod Succ 125 Mg/2 Ml Vial) 60 mg IVPUSH Q8H [facility] Last Admin: 03/29/23 08:01 Dose: 60 mg Documented By: MARIA DOLORES Omeprazole (Omeprazole 40 Mg Capsule.Dr) 40 mg PO DAILY@0630 [facility] Last Admin: 03/29/23 05:42 Dose: 40 mg Documented By: KIMBERLY Pharmacy Consult (Consult Rx Vancomycin Dosing) 1 each MISCELLANE DAILY PRN PRN Reason: Consult order Prednisolone Acetate (Prednisolone Acetate 1 % Oph Susp 5 Ml Drpbtl) 1 drop EYE-RIGHT DAILY [facility] Last Admin: 03/29/23 10:57 Dose: 1 drop Documented By: MARIA DOLORES Sodium Chloride (0.9 % Sodium Chloride Flush 3 Ml Syringe) 3 ml IVFLUSH QSHIFT [facility] Last Admin: 03/29/23 08:04 Dose: 3 ml Documented By: MARIA DOLORES Timolol Maleate (Timolol Maleate 0.5 % Oph Maris 5 Ml Drbtl) 1 drop EYE-LEFT BID [facility] Last Admin: 03/29/23 10:56 Dose: 1 drop Documented By: MARIA DOLORES Labs 03/29/23 06:44 03/30/23 07:50 Labs: Laboratory Results - last 24 hr 03/29/23 03/29/23 06:44 10:50 MCV 96.4 MCH 31.2 MCHC 32.3 RDW 15.6 Plt Count 150 L D MPV 11.9 Absolute Nucleated RBC 0.020 H Nucleated RBC % (auto) 0.4 H Anion Gap 15 Estim Creat Clear Calc 48.6 Estimated GFR > 60 Random Glucose 167 H Calcium 9.0 B-Natriuretic Peptide Cancelled Nasal Screen MRSA (PCR) NEGATIVE Nasal S. aureus Screen NEGATIVE Nasal MRSA/S.aureus Interp SEE NOTE Microbiology Microbiology Results: Microbiology 03/23/23 06:29 Blood Culture - Final Blood - Venous No growth after 5 days. 03/23/23 06:29 Blood Culture - Final Blood - Venous No growth after 5 days. 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 Acute hypoxemic respiratory failure secondary to pneumonia with sepsis -noted to have worsening hypoxia this am chest CT 03/27 showed multilobar infiltrate, small pleural effusion, moderate size reactive mediastinal lymph nodes on high-flow oxygen, IV steroids, IV vancomycin , IV ceftriaxone and azithromycin, likely component of CHF Continue above treatment, supportive care, encourage incentive spirometry, wean oxygen as tolerated, follow clinical course closely. , Anemia, acute blood loss anemia +occult blood, no indication for transufsion, hematocrit improved and stable Offered EGD but she prefers her GI doctor doing it at a later date, discussed with her risk of delaying Acute diastolic CHF on admission, given IV Lasix in ED, later appeared euvolemic therefore diuretics held, Echo showed EF 65 to 70 Today noted to have bilateral crackles, with increased oxygen requirement, will treat with IV Lasix follow BMP, BNP, strict I's and O's discussed with Cardiology they agree with above treatment plan. glucoma :conitnue home eye drops. dvt prophylax: scd. need for inpt: acute hypoxia requiring high-flow oxygen requiring further workup, IV Lasix and IV antibiotics for pneumonia with sepsis. Quality Stroke Does the patient have a stroke diagnosis?: No VTE Prior VTE?: No VTE Risk Level:: Medical - moderate - high VTE Device Contraindication: N/A - Device Ordered VTE Drug Contraindication: N/A - Med Ordered
[2023-03-29 12:54] LABS: Adenovirus PCR Not Detected (Not Detect.); Bordetella parapertussis PCR Not Detected (Not Detect.); Bordetella pertussis PCR Not Detected (Not Detect.); Chlamydia pneumoniae PCR Not Detected (Not Detect.); Coronavirus 229E PCR Not Detected (Not Detect.); Coronavirus HKU1 PCR Not Detected (Not Detect.); Coronavirus NL63 PCR Not Detected (Not Detect.); Coronavirus OC43 PCR Not Detected (Not Detect.); Human metapneumovirus PCR Not Detected (Not Detect.); Influenza A PCR Not Detected (Not Detect.); Influenza B PCR Not Detected (Not Detect.); Mycoplasma pneumoniae PCR Not Detected (Not Detect.); Parainfluenza 1 PCR Not Detected (Not Detect.); Parainfluenza 2 PCR Not Detected (Not Detect.); Parainfluenza 3 PCR Not Detected (Not Detect.); Parainfluenza 4 PCR Not Detected (Not Detect.); RSV PCR Not Detected (Not Detect.); Rhino/Enterovirus PCR Not Detected (Not Detect.)
[2023-03-29 13:24] LABS: SARS-CoV-2 PCR Not Detected (Not Detect.)
[2023-03-29 13:31] LABS: Adenovirus F 40/41 Not Detected (Not Detect.); Astrovirus Not Detected (Not Detect.); Campylobacter Not Detected (Not Detect.); Cryptosporidium Not Detected (Not Detect.); Cyclospora cayetanensis Not Detected (Not Detect.); E. coli EAEC Not Detected (Not Detect.); E. coli EPEC Not Detected (Not Detect.); E. coli ETEC Not Detected (Not Detect.); E. coli STEC Not Detected (Not Detect.); Entamoeba histolytica Not Detected (Not Detect.); Giardia lamblia Not Detected (Not Detect.); Norovirus GI/GII Not Detected (Not Detect.); Plesiomonas shigelloides Not Detected (Not Detect.); Rotavirus A Not Detected (Not Detect.); Salmonella Not Detected (Not Detect.); Sapovirus Not Detected (Not Detect.); Shigella sp./EIEC Not Detected (Not Detect.); Vibrio Not Detected (Not Detect.); Vibrio Cholerae Not Detected (Not Detect.); Yersinia enterocolitica Not Detected (Not Detect.)
[2023-03-29] MEDS: vancomycin HCL 1,250 MG in 0.9 % Sodium Chloride 250 ML 166.67 MG IV (13:38)
[2023-03-29 16:20] LABS: Venous Blood Gas Refer to POC result
[2023-03-29 16:21] LABS: VBG Base Excess 5.4 mmol/L; VBG HCO3 28 mmol/L (22-26); VBG pCO2 33 mmHg; VBG pH 7.52 (7.32-7.43); VBG pO2 61 mmHg
--- NOTE | 2023-03-29 17:45 | P.PNPL_ITS ---
Subjective Subjective Date of Service: 03/29/23 Interval history: Seen and examined. On HF. Respiratory viral panel is negative. Will work on ISS and proning today Objective Data Labs 03/29/23 06:44 03/29/23 06:44 Labs: Laboratory Results - last 24 hr 03/28/23 03/29/23 03/29/23 15:45 06:44 10:30 WBC 4.6 L RBC 2.79 L Hgb 8.7 L Hct 26.9 L MCV 96.4 MCH 31.2 MCHC 32.3 RDW 15.6 Plt Count 150 L D MPV 11.9 Absolute Nucleated RBC 0.020 H Nucleated RBC % (auto) 0.4 H VBG pH VBG pCO2 VBG pO2 VBG HCO3 VBG O2 Saturation VBG Base Excess Sodium 136 Potassium 4.2 D Chloride 101 Carbon Dioxide 24 Anion Gap 15 BUN 21 H Creatinine 0.64 Estim Creat Clear Calc 48.6 Estimated GFR > 60 Random Glucose 167 H Calcium 9.0 B-Natriuretic Peptide Cancelled Nasal Screen MRSA (PCR) Nasal S. aureus Screen Nasal MRSA/S.aureus Interp Stl C. cayetanensis PCR Not Detected Stool Rotavirus A PCR Not Detected Stl Adenov F 40/41 PCR Not Detected Stool Astrovirus (PCR) Not Detected Stool Campylobacter PCR Not Detected Stool Cryptosporidium PCR Not Detected Stl Sh Tox Pr E STEC PCR Not Detected Stool E coli O157 PCR Not applicable Stl Enterotoxigenic E PCR Not Detected Stool EPEC (PCR) Not Detected Stool EAEC (PCR) Not Detected Stl E. histolytica PCR Not Detected Stool Giardia Lamblia PCR Not Detected Stl P. shigelloides PCR Not Detected Stool Salmonella PCR Not Detected Stool Sapovirus (PCR) Not Detected Stl Shigella/EIEC PCR Not Detected St Y.enterocolitica PCR Not Detected Stool Vibrio (PCR) Not Detected Stl Vibrio cholerae PCR Not Detected Stl Norovirus GI/GII PCR Not Detected Respiratory Panel Montemayor See Note Adenovirus (Rapid PCR) Not Detected B.pert (TEM-PCR) Not Detected B.parapertussis DNA PCR Not Detected C. pneumoniae DNA (PCR) Not Detected Coronavirus OC43 (PCR) Not Detected Coronavirus HKU1 (PCR) Not Detected Coronavirus 229E (PCR) Not Detected Coronavirus NL63 (PCR) Not Detected Human Metapneumovir PCR Not Detected Influenza A (RT-PCR) Not Detected Influenza B (RT-PCR) Not Detected M. pneumoniae (PCR) Not Detected Parainfluenza 1 (PCR) Not Detected Parainfluenza 2 (PCR) Not Detected Parainfluenza 3 (PCR) Not Detected Parainfluenza 4 (PCR) Not Detected RSV (PCR) Not Detected Entero/Rhino (PCR) Not Detected SARS-CoV-2 RNA (RT-PCR) Not Detected 03/29/23 03/29/23 10:50 16:15 WBC RBC Hgb Hct MCV MCH MCHC RDW Plt Count MPV Absolute Nucleated RBC Nucleated RBC % (auto) VBG pH 7.52 H VBG pCO2 33 VBG pO2 61 VBG HCO3 28 H VBG O2 Saturation 89.0 VBG Base Excess 5.4 Sodium Potassium Chloride Carbon Dioxide Anion Gap BUN Creatinine Estim Creat Clear Calc Estimated GFR Random Glucose Calcium B-Natriuretic Peptide Nasal Screen MRSA (PCR) NEGATIVE Nasal S. aureus Screen NEGATIVE Nasal MRSA/S.aureus Interp SEE NOTE Stl C. cayetanensis PCR Stool Rotavirus A PCR Stl Adenov F 40/41 PCR Stool Astrovirus (PCR) Stool Campylobacter PCR Stool Cryptosporidium PCR Stl Sh Tox Pr E STEC PCR Stool E coli O157 PCR Stl Enterotoxigenic E PCR Stool EPEC (PCR) Stool EAEC (PCR) Stl E. histolytica PCR Stool Giardia Lamblia PCR Stl P. shigelloides PCR Stool Salmonella PCR Stool Sapovirus (PCR) Stl Shigella/EIEC PCR St Y.enterocolitica PCR Stool Vibrio (PCR) Stl Vibrio cholerae PCR Stl Norovirus GI/GII PCR Respiratory Panel Montemayor Adenovirus (Rapid PCR) B.pert (TEM-PCR) B.parapertussis DNA PCR C. pneumoniae DNA (PCR) Coronavirus OC43 (PCR) Coronavirus HKU1 (PCR) Coronavirus 229E (PCR) Coronavirus NL63 (PCR) Human Metapneumovir PCR Influenza A (RT-PCR) Influenza B (RT-PCR) M. pneumoniae (PCR) Parainfluenza 1 (PCR) Parainfluenza 2 (PCR) Parainfluenza 3 (PCR) Parainfluenza 4 (PCR) RSV (PCR) Entero/Rhino (PCR) SARS-CoV-2 RNA (RT-PCR) Microbiology Microbiology Results: Microbiology 03/23/23 06:29 Blood - Venous Blood Culture - Final No growth after 5 days. 03/23/23 06:29 Blood - Venous Blood Culture - Final No growth after 5 days. Review of Systems Constitutional: Reports fatigue and Denies fever(s) Denies nasal obstruction Cardiovascular: Denies chest pain, Reports dyspnea and Reports dyspnea on exertion Respiratory: Reports cough, Reports dyspnea, Reports dyspnea on exertion and Denies wheezing Gastrointestinal: Reports no additional gastrointestinal complaints Musculoskeletal: Reports myalgias Reports system reviewed and no additional complaints, except as documented Endocrine: Reports fatigue Hematologic/Lymphatic: Denies lymphadenopathy Allergic/Immunologic: Denies wheezing Physical Exam 2 Vital Signs: Vital Signs: Last Vital Signs Temp 96.8 F 03/29/23 15:19 Pulse 88 03/29/23 15:19 Resp 18 03/29/23 15:27 BP 137/70 03/29/23 15:19 Pulse Ox 93 03/29/23 15:19 O2 Del Method High Flow Nasal C annula 03/29/23 15:19 O2 Flow Rate 29 03/29/23 15:19 FiO2 90 03/29/23 15:19 Oxygen Flow Rate 4 03/23/23 06:08 BMI result Body Mass Index 23.3 Const: General: comfortable HEENT: Head: Yes normocephalic Neck: Neck: Yes supple Chest: Chest palpation & inspection: normal inspection of the chest Resp: Effort & Inspection: normal respiratory effort Auscultation: rales, rhonchi and diminished lung sounds Cardio: Heart sounds: S1 normal heart sound present and S2 normal heart sound present GI: Palpation (GI): Soft to palpation Skin: General skin exam: no rashes or lesions noted Extrem: General: Yes no clubbing, cyanosis or edema Procedures Date of Service Date of Service: 03/29/23 Assessment and Plan Assessment and plan (1) Acute hypoxic respiratory failure: Status: Acute (2) Bilateral pneumonia: Status: Acute (3) ARDS (adult respiratory distress syndrome): Status: Acute Plan continue HF trial proning Bloodwork broad spectrum Abx IV steroids diuresis as tolerated guarded Time Spent With Patient Time: Total time managing care of this patient today ____ minutes. Progress Note: Quality Stroke Does the patient have a stroke diagnosis?: No
[2023-03-29] MEDS: Latanoprost 0.005 % Ophth Sol 2.5 ML DROPS 1 DROP EYE-LEFT (21:34)
[2023-03-30] VITALS (15 sets, daily range): BP systolic 124–158; BP diastolic 58–75; PULSE 64–96; RESP 17–20; TEMP 36.1–36.7; O2SAT 90–99; BMI 24.6
--- NOTE | 2023-03-30 00:14 | PC.RT ---
Pt stated there is no way of her proning at this time. Pt did compromise on laying on side with pillows prompt behind back. RT did decrease FIO2 from 90% to 70% FIO2 with SPO2 99-100%. Pt currently on right side and agrees to lay on sides throughout the night. Pt remains on continuous monitoring and will wean O2 as tolerated. RN is aware
[2023-03-30] MEDS: methylPREDNISolone Sod Succ 125 MG/2 ML VIAL 60 MG IVPUSH ×3 (01:49→16:39)
[2023-03-30] MEDS: 0.9 % Sodium Chloride Flush 3 ML SYRINGE IVFLUSH ×3 (01:49→10:13)
[2023-03-30] MEDS: Omeprazole 40 MG CAPSULE.DR PO (06:30)
[2023-03-30] MEDS: clonazePAM 0.5 MG TABLET PO (06:30)
[2023-03-30] MEDS: Acetaminophen 325 MG TABLET 650 MG PO ×2 (06:30→21:43)
[2023-03-30] MEDS: guaiFENesin 200 MG/10 ML 10 ML LIQUID PO ×3 (07:37→21:42)
[2023-03-30] MEDS: Isosorbide Mononitrate 30 MG TAB.ER.24H PO (07:37)
[2023-03-30] MEDS: lisinopriL 20 MG TABLET PO (07:37)
[2023-03-30] MEDS: prednisoLONE Acetate 1 % Oph Susp 5 ML DRPBTL 1 DROP EYE-RIGHT (07:45)
[2023-03-30] MEDS: timoloL maleate 0.5 % Oph Sol 5 ML DRBTL 1 DROP EYE-LEFT ×2 (07:46→21:42)
[2023-03-30 08:15] LABS: Anion Gap 13 (12-20); Blood Urea Nitrogen 29 mg/dL (9-16); Calcium 8.9 mg/dL (8.4-10.2); Carbon Dioxide 26 mmol/L (22-29); Chloride 103 mmol/L (96-108); Creatinine Clr Calc Pharmacy 47.7; Estimated Glomerular Filt Rate > 60; Glucose Random 174 mg/dL (60-115); Potassium 3.5 mmol/L (3.3-5.1); Sodium 138 mmol/L (135-145)
[2023-03-30 08:23] LABS: B Type Natriuretic Peptide 664 pg/mL (<100)
[2023-03-30] MEDS: Azithromycin 500 MG in 0.9 % Sodium Chloride 250 ML 100 MG IV (09:30)
[2023-03-30] MEDS: cefTRIAXone sodium 1 GM in 0.9 % Sodium Chloride 50 ML IV (09:30)
[2023-03-30] MEDS: Furosemide 40 MG/4 ML VIAL IVPUSH (10:11)
--- NOTE | 2023-03-30 11:48 | P.PNPL_ITS ---
Subjective Subjective Date of Service: 03/30/23 Interval history: The patient was seen on exam. She did receive Klonopin as needed she is still groggy this 1. She is stable to waking have a reasonable conversation. The patient did have a repeat chest x-ray which I personally reviewed. Appears to be some clearing which is reassuring although still significant disease. She still has significant bilateral crackles. She did respond well to the 60 mg of Lasix. She did receive an additional 40 mg IV now. Objective Data Labs 03/29/23 06:44 03/30/23 07:50 Labs: Laboratory Results - last 24 hr 03/28/23 03/29/23 03/29/23 15:45 06:44 10:30 VBG pH VBG pCO2 VBG pO2 VBG HCO3 VBG O2 Saturation VBG Base Excess Sodium Potassium Chloride Carbon Dioxide Anion Gap BUN Creatinine Estim Creat Clear Calc Estimated GFR Random Glucose Calcium B-Natriuretic Peptide Cancelled Hold Yellow Top Nasal Screen MRSA (PCR) Nasal S. aureus Screen Nasal MRSA/S.aureus Interp Stl C. cayetanensis PCR Not Detected Stool Rotavirus A PCR Not Detected Stl Adenov F 40/41 PCR Not Detected Stool Astrovirus (PCR) Not Detected Stool Campylobacter PCR Not Detected Stool Cryptosporidium PCR Not Detected Stl Sh Tox Pr E STEC PCR Not Detected Stool E coli O157 PCR Not applicable Stl Enterotoxigenic E PCR Not Detected Stool EPEC (PCR) Not Detected Stool EAEC (PCR) Not Detected Stl E. histolytica PCR Not Detected Stool Giardia Lamblia PCR Not Detected Stl P. shigelloides PCR Not Detected Stool Salmonella PCR Not Detected Stool Sapovirus (PCR) Not Detected Stl Shigella/EIEC PCR Not Detected St Y.enterocolitica PCR Not Detected Stool Vibrio (PCR) Not Detected Stl Vibrio cholerae PCR Not Detected Stl Norovirus GI/GII PCR Not Detected Respiratory Panel Montemayor See Note Adenovirus (Rapid PCR) Not Detected B.pert (TEM-PCR) Not Detected B.parapertussis DNA PCR Not Detected C. pneumoniae DNA (PCR) Not Detected Coronavirus OC43 (PCR) Not Detected Coronavirus HKU1 (PCR) Not Detected Coronavirus 229E (PCR) Not Detected Coronavirus NL63 (PCR) Not Detected Human Metapneumovir PCR Not Detected Influenza A (RT-PCR) Not Detected Influenza B (RT-PCR) Not Detected M. pneumoniae (PCR) Not Detected Parainfluenza 1 (PCR) Not Detected Parainfluenza 2 (PCR) Not Detected Parainfluenza 3 (PCR) Not Detected Parainfluenza 4 (PCR) Not Detected RSV (PCR) Not Detected Entero/Rhino (PCR) Not Detected SARS-CoV-2 RNA (RT-PCR) Not Detected 03/29/23 03/29/23 03/30/23 10:50 16:15 07:23 VBG pH 7.52 H VBG pCO2 33 VBG pO2 61 VBG HCO3 28 H VBG O2 Saturation 89.0 VBG Base Excess 5.4 Sodium Potassium Chloride Carbon Dioxide Anion Gap BUN Creatinine Cancelled Estim Creat Clear Calc Cancelled Estimated GFR Cancelled Random Glucose Calcium B-Natriuretic Peptide Hold Yellow Top Nasal Screen MRSA (PCR) NEGATIVE Nasal S. aureus Screen NEGATIVE Nasal MRSA/S.aureus Interp SEE NOTE Stl C. cayetanensis PCR Stool Rotavirus A PCR Stl Adenov F PCR Stool Astrovirus (PCR) Stool Campylobacter PCR Stool Cryptosporidium PCR Stl Sh Tox Pr E STEC PCR Stool E coli O157 PCR Stl Enterotoxigenic E PCR Stool EPEC (PCR) Stool EAEC (PCR) Stl E. histolytica PCR Stool Giardia Lamblia PCR Stl P. shigelloides PCR Stool Salmonella PCR Stool Sapovirus (PCR) Stl Shigella/EIEC PCR St Y.enterocolitica PCR Stool Vibrio (PCR) Stl Vibrio cholerae PCR Stl Norovirus GI/GII PCR Respiratory Panel Montemayor Adenovirus (Rapid PCR) B.pert (TEM-PCR) B.parapertussis DNA PCR C. pneumoniae DNA (PCR) Coronavirus OC43 (PCR) Coronavirus HKU1 (PCR) Coronavirus 229E (PCR) Coronavirus NL63 (PCR) Human Metapneumovir PCR Influenza A (RT-PCR) Influenza B (RT-PCR) M. pneumoniae (PCR) Parainfluenza 1 (PCR) Parainfluenza 2 (PCR) Parainfluenza 3 (PCR) Parainfluenza 4 (PCR) RSV (PCR) Entero/Rhino (PCR) SARS-CoV-2 RNA (RT-PCR) 03/30/23 03/30/23 07:41 07:50 VBG pH VBG pCO2 VBG pO2 VBG HCO3 VBG O2 Saturation VBG Base Excess Sodium 138 Potassium 3.5 Chloride 103 Carbon Dioxide 26 Anion Gap 13 BUN 29 H Creatinine 0.72 Estim Creat Clear Calc 47.7 Estimated GFR > 60 Random Glucose 174 H Calcium 8.9 B-Natriuretic Peptide 664 H Hold Yellow Top See Note Nasal Screen MRSA (PCR) Nasal S. aureus Screen Nasal MRSA/S.aureus Interp Stl C. cayetanensis PCR Stool Rotavirus A PCR Stl Adenov F 40/41 PCR Stool Astrovirus (PCR) Stool Campylobacter PCR Stool Cryptosporidium PCR Stl Sh Tox Pr E STEC PCR Stool E coli O157 PCR Stl Enterotoxigenic E PCR Stool EPEC (PCR) Stool EAEC (PCR) Stl E. histolytica PCR Stool Giardia Lamblia PCR Stl P. shigelloides PCR Stool Salmonella PCR Stool Sapovirus (PCR) Stl Shigella/EIEC PCR St Y.enterocolitica PCR Stool Vibrio (PCR) Stl Vibrio cholerae PCR Stl Norovirus GI/GII PCR Respiratory Panel Montemayor Adenovirus (Rapid PCR) B.pert (TEM-PCR) B.parapertussis DNA PCR C. pneumoniae DNA (PCR) Coronavirus OC43 (PCR) Coronavirus HKU1 (PCR) Coronavirus 229E (PCR) Coronavirus NL63 (PCR) Human Metapneumovir PCR Influenza A (RT-PCR) Influenza B (RT-PCR) M. pneumoniae (PCR) Parainfluenza 1 (PCR) Parainfluenza 2 (PCR) Parainfluenza 3 (PCR) Parainfluenza 4 (PCR) RSV (PCR) Entero/Rhino (PCR) SARS-CoV-2 RNA (RT-PCR) Microbiology Microbiology Results: Microbiology 03/23/23 06:29 Blood - Venous Blood Culture - Final No growth after 5 days. 03/23/23 06:29 Blood - Venous Blood Culture - Final No growth after 5 days. Review of Systems Constitutional: Reports fatigue and Denies fever(s) Denies nasal obstruction Cardiovascular: Denies chest pain, Reports dyspnea and Reports dyspnea on exertion Respiratory: Reports cough, Reports dyspnea, Reports dyspnea on exertion and Denies wheezing Gastrointestinal: Reports no additional gastrointestinal complaints Musculoskeletal: Reports myalgias Reports system reviewed and no additional complaints, except as documented Psychiatric: Reports anxiety Endocrine: Reports fatigue Hematologic/Lymphatic: Denies lymphadenopathy Allergic/Immunologic: Denies wheezing Physical Exam 2 Vital Signs: Vital Signs: Last Vital Signs Temp 97.3 F 03/30/23 08:00 Pulse 66 03/30/23 08:00 Resp 20 03/30/23 11:29 BP 133/63 03/30/23 10:10 Pulse Ox 95 03/30/23 08:00 O2 Del Method High Flow Nasal C annula 03/30/23 08:00 O2 Flow Rate 85.2 03/30/23 08:00 FiO2 45 03/30/23 08:00 Oxygen Flow Rate 4 03/23/23 06:08 BMI result Body Mass Index 24.6 Const: General: comfortable HEENT: Head: Yes normocephalic Neck: Neck: Yes supple Chest: Chest palpation & inspection: normal inspection of the chest Resp: Effort & Inspection: normal respiratory effort Auscultation: rales, no rhonchi and diminished lung sounds Cardio: Heart sounds: S1 normal heart sound present and S2 normal heart sound present GI: Palpation (GI): Soft to palpation Skin: General skin exam: no rashes or lesions noted Extrem: General: Yes no clubbing, cyanosis or edema Procedures Date of Service Date of Service: 03/30/23 Assessment and Plan Assessment and plan (1) Acute hypoxic respiratory failure: Status: Acute (2) Bilateral pneumonia: Status: Acute (3) ARDS (adult respiratory distress syndrome): Status: Acute Plan continue HF, tapering 100%->80% this am Bloodwork pending broad spectrum Abx IV steroids ok to switch to PO tomorrow if continue to improve diuresis as tolerated, consider lasix drip guarded Time Spent With Patient Time: Total time managing care of this patient today ____ minutes. Progress Note: Quality Stroke Does the patient have a stroke diagnosis?: No
[2023-03-30] MEDS: vancomycin HCL 1,250 MG in 0.9 % Sodium Chloride 250 ML 166.67 MG IV (12:21)
--- NOTE | 2023-03-30 14:34 | HO.PM.IMPN ---
Subjective Subjective Date of Service: 03/30/23 Interval History: This morning was groggy due to Klonopin, later in the day more awake alert denies chest pain, no shortness of breath, no lightheadedness, no dizziness has been using incentive spirometry regularly no fevers no chills no worsening cough. Remains on high-flow oxygen 85% Review of Systems All other system reviewed and negative. Physical Exam Vital Signs: Vital Signs: Last Vital Signs Temp 98.1 F 03/30/23 12:00 Pulse 83 03/30/23 12:00 Resp 20 03/30/23 12:00 BP 146/69 H 03/30/23 12:00 Pulse Ox 93 03/30/23 12:00 O2 Del Method High Flow Nasal C annula 03/30/23 12:00 O2 Flow Rate 45 03/30/23 12:00 FiO2 74 03/30/23 12:00 Oxygen Flow Rate 4 03/23/23 06:08 BMI result Body Mass Index 24.6 Const: Other: General awake alert x3, resting comfortably in no acute distress. Neck supple no JVD. CVS regular rate rhythm, Respiratory lungs bilateral crackles,diminished breath sounds, no use of accessory muscles Gastrointestinal abdomen soft, non tender, bowel sounds audible, no guarding , no rigidity. Extremities no edema. Neuro non focal Skin no rash Psych appropriate affect Objective Data Active Medications Acetaminophen (Acetaminophen 325 Mg Tablet) 650 mg PO Q6H PRN PRN Reason: Pain, Mild (Pain Scale 1-3) Last Admin: 03/30/23 06:30 Dose: 650 mg Documented By: JUICE Calcium Carbonate (Calcium Carbonate 500 Mg Tablet) 500 mg PO BID [facility] Last Admin: 03/30/23 07:37 Dose: 500 mg Documented By: HAILEE Clonazepam (Clonazepam 0.5 Mg Tablet) 0.5 mg PO DAILY PRN PRN Reason: anxiety/restlessness Last Admin: 03/30/23 06:30 Dose: 0.5 mg Documented By: JUICE Furosemide (Furosemide 40 Mg/4 Ml Vial) 40 mg IVPUSH DAILY [facility]; Protocol Last Admin: 03/30/23 10:11 Dose: 40 mg Documented By: HAILEE Guaifenesin (Guaifenesin 200 Mg/10 Ml 10 Ml Liquid) 10 ml PO Q4H PRN PRN Reason: Cough Last Admin: 03/30/23 07:37 Dose: 10 ml Documented By: HAILEE Ceftriaxone Sodium 1 gm/ (Sodium Chloride) 50 mls @ 100 mls/hr IV Q24H [facility] Last Infusion: 03/30/23 10:13 Dose: Infused Documented By: HAILEE Azithromycin 500 mg/ Sodium (Chloride) 250 mls @ 125 mls/hr IV Q24H [facility] Last Infusion: 03/30/23 12:20 Dose: Infused Documented By: HAILEE Vancomycin HCl 1,250 mg/ (Sodium Chloride) 250 mls @ 166.667 mls/hr IV Q24H [facility] Last Infusion: 03/30/23 14:18 Dose: Infused Documented By: HAILEE Isosorbide Mononitrate (Isosorbide Mononitrate 30 Mg Tab.Er.24h) 30 mg PO DAILY [facility]; Protocol Last Admin: 03/30/23 07:37 Dose: 30 mg Documented By: HAILEE Latanoprost (Latanoprost 0.005 % Ophth Maris 2.5 Ml Drops) 1 drop EYE-LEFT BEDTIME [facility] Last Admin: 03/29/23 21:34 Dose: 1 drop Documented By: JUICE Lisinopril (Lisinopril 20 Mg Tablet) 20 mg PO DAILY [facility]; Protocol Last Admin: 03/30/23 07:37 Dose: 20 mg Documented By: HAILEE Methylprednisolone Sodium Succinate (Methylprednisolone Sod Succ 125 Mg/2 Ml Vial) 60 mg IVPUSH Q8H [facility] Last Admin: 03/30/23 07:37 Dose: 60 mg Documented By: HAILEE Omeprazole (Omeprazole 40 Mg Capsule.Dr) 40 mg PO DAILY@0630 [facility] Last Admin: 03/30/23 06:30 Dose: 40 mg Documented By: JUICE Pharmacy Consult (Consult Rx Vancomycin Dosing) 1 each MISCELLANE DAILY PRN PRN Reason: Consult order Prednisolone Acetate (Prednisolone Acetate 1 % Oph Susp 5 Ml Drpbtl) 1 drop EYE-RIGHT DAILY [facility] Last Admin: 03/30/23 07:45 Dose: 1 drop Documented By: HAILEE Sodium Chloride (0.9 % Sodium Chloride Flush 3 Ml Syringe) 3 ml IVFLUSH QSHIFT [facility] Last Admin: 03/30/23 10:13 Dose: 3 ml Documented By: HAILEE Timolol Maleate (Timolol Maleate 0.5 % Oph Maris 5 Ml Drbtl) 1 drop EYE-LEFT BID [facility] Last Admin: 03/30/23 07:46 Dose: 1 drop Documented By: HAILEE Labs 03/29/23 06:44 03/30/23 07:50 Labs: Laboratory Results - last 24 hr 03/29/23 03/30/23 03/30/23 16:15 07:23 07:41 VBG pH 7.52 H VBG pCO2 33 VBG pO2 61 VBG HCO3 28 H VBG O2 Saturation 89.0 VBG Base Excess 5.4 Anion Gap Estim Creat Clear Calc Cancelled Estimated GFR Cancelled Random Glucose Calcium B-Natriuretic Peptide Hold Yellow Top See Note 03/30/23 07:50 VBG pH VBG pCO2 VBG pO2 VBG HCO3 VBG O2 Saturation VBG Base Excess Anion Gap 13 Estim Creat Clear Calc 47.7 Estimated GFR > 60 Random Glucose 174 H Calcium 8.9 B-Natriuretic Peptide 664 H Hold Yellow Top Assessment and Plan (1) Guaiac positive stools: Status: Acute (2) CHF (congestive heart failure): Status: Acute Plan 84 y/o F with PMH significant for?HTN, glaucoma, macular degeneration, blind in right eye, and 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 Acute hypoxemic respiratory failure secondary to pneumonia with sepsis and chf persistent hypoxia on high flow oxygen improved since yesterday chest CT 03/27 showed multilobar infiltrate, small pleural effusion, moderate size reactive mediastinal lymph nodes on high-flow oxygen, IV steroids, IV vancomycin , IV ceftriaxone and azithromycin, likely component of CHF Continue above treatment, supportive care, encourage incentive spirometry, wean oxygen as tolerated, follow clinical course closely. Acute diastolic CHF on admission, given IV Lasix in ED, later appeared euvolemic therefore diuretics held, Echo showed EF 65 to 70 noted to have worsening oxygen requirement 03/29 with bilateral crackles, treated with IV Lasix with good response Being followed closely by pulmonology and Cardiology, follow recommendation. Will place on IV Lasix drip follow BMP, BNP, strict I's and O's, daily weight Anemia, acute blood loss anemia +occult blood, no indication for transufsion, hematocrit improved and stable. Offered EGD but she prefers her GI doctor doing it at a later date, discussed with her risk of delaying glucoma :conitnue home eye drops. dvt prophylax: scd. need for inpt: acute hypoxia requiring high-flow oxygen requiring further workup, IV Lasix and IV antibiotics for pneumonia with sepsis. Quality Stroke Does the patient have a stroke diagnosis?: No VTE Prior VTE?: No VTE Risk Level:: Medical - moderate - high VTE Device Contraindication: N/A - Device Ordered VTE Drug Contraindication: N/A - Med Ordered
[2023-03-30] MEDS: Furosemide 200 MG in 0.9 % Sodium Chloride 80 ML IVCONT (16:46)
[2023-03-31] VITALS (13 sets, daily range): BP systolic 157–182; BP diastolic 57–85; PULSE 60–87; RESP 15–20; TEMP 36–36.6; O2SAT 89–96; BMI 23.6
[2023-03-31] MEDS: methylPREDNISolone Sod Succ 125 MG/2 ML VIAL 60 MG IVPUSH ×2 (02:30→08:52)
[2023-03-31] MEDS: 0.9 % Sodium Chloride Flush 3 ML SYRINGE IVFLUSH ×4 (02:33→21:37)
[2023-03-31] MEDS: Acetaminophen 325 MG TABLET 650 MG PO ×2 (05:55→21:36)
[2023-03-31] MEDS: Omeprazole 40 MG CAPSULE.DR PO (05:56)
[2023-03-31 06:45] LABS: Anion Gap 14 (12-20); Blood Urea Nitrogen 31 mg/dL (9-16); Calcium 9.1 mg/dL (8.4-10.2); Carbon Dioxide 28 mmol/L (22-29); Chloride 99 mmol/L (96-108); Creatinine Clr Calc Pharmacy 44.9; Estimated Glomerular Filt Rate > 60; Glucose Random 161 mg/dL (60-115); Potassium 3.3 mmol/L (3.3-5.1); Sodium 138 mmol/L (135-145)
[2023-03-31] MEDS: prednisoLONE Acetate 1 % Oph Susp 5 ML DRPBTL 1 DROP EYE-RIGHT (08:52)
[2023-03-31] MEDS: clonazePAM 0.5 MG TABLET PO ×2 (08:52→21:37)
[2023-03-31] MEDS: lisinopriL 20 MG TABLET PO (08:52)
[2023-03-31] MEDS: Isosorbide Mononitrate 30 MG TAB.ER.24H PO (08:52)
[2023-03-31] MEDS: timoloL maleate 0.5 % Oph Sol 5 ML DRBTL 1 DROP EYE-LEFT ×2 (08:52→21:37)
[2023-03-31] MEDS: cefTRIAXone sodium 1 GM in 0.9 % Sodium Chloride 50 ML IV (09:39)
[2023-03-31] MEDS: Azithromycin 500 MG in 0.9 % Sodium Chloride 250 ML 100 MG IV (10:25)
[2023-03-31 10:30] LABS: Vancomycin Random 15.1 mcg/mL (15-20)
--- NOTE | 2023-03-31 10:42 | HE.PHANOTE ---
VANCO DOSE ADJUSTMENT BASED ON SCR AND TROUGH OF 15.1 DOSE KEPT AT 1250 Q 24. NEXT LEVEL AT 04/01 @ 2000
[2023-03-31] MEDS: vancomycin HCL 1,250 MG in 0.9 % Sodium Chloride 250 ML 166.67 MG IV (11:56)
--- NOTE | 2023-03-31 13:37 | HO.PM.IMPN ---
Subjective Subjective Date of Service: 03/31/23 Interval History: Did not sleep well last night due to anxiety, denies shortness of breath, no chest pain, no lightheadedness or dizziness, diuresing well, tolerating diet no nausea no vomiting no abdominal pain no fevers, no chills. Review of Systems All other system reviewed and negative. Physical Exam Vital Signs: Vital Signs: Last Vital Signs Temp 97.3 F 03/31/23 11:06 Pulse 71 03/31/23 11:06 Resp 20 03/31/23 11:36 BP 157/73 H 03/31/23 11:06 Pulse Ox 93 03/31/23 11:06 O2 Del Method High Flow Nasal C annula 03/31/23 11:06 O2 Flow Rate 45 03/31/23 11:06 FiO2 55 03/31/23 11:06 Oxygen Flow Rate 4 03/23/23 06:08 BMI result Body Mass Index 23.6 Const: Other: General awake alert x3, resting comfortably in no acute distress. Neck supple no JVD. CVS regular rate rhythm, Respiratory lungs persistent bilateral crackles,diminished breath sounds, no use of accessory muscles Gastrointestinal abdomen soft, non tender, bowel sounds audible, no guarding , no rigidity. Extremities no edema. Neuro non focal Skin no rash Psych appropriate affect Objective Data Active Medications Acetaminophen (Acetaminophen 325 Mg Tablet) 650 mg PO Q6H PRN PRN Reason: Pain, Mild (Pain Scale 1-3) Last Admin: 03/31/23 05:55 Dose: 650 mg Documented By: JUICE Calcium Carbonate (Calcium Carbonate 500 Mg Tablet) 500 mg PO BID [facility] Last Admin: 03/31/23 08:53 Dose: 500 mg Documented By: AMBER Clonazepam (Clonazepam 0.5 Mg Tablet) 0.5 mg PO DAILY PRN PRN Reason: anxiety/restlessness Last Admin: 03/31/23 08:52 Dose: 0.5 mg Documented By: AMBER Furosemide (Furosemide 40 Mg/4 Ml Vial) 40 mg IVPUSH DAILY [facility]; Protocol Last Admin: 03/31/23 08:53 Dose: Not Given Documented By: AMBER Non-Admin Reason: Physician Held Med Guaifenesin (Guaifenesin 200 Mg/10 Ml 10 Ml Liquid) 10 ml PO Q4H PRN PRN Reason: Cough Last Admin: 03/30/23 21:42 Dose: 10 ml Documented By: JUICE Ceftriaxone Sodium 1 gm/ (Sodium Chloride) 50 mls @ 100 mls/hr IV Q24H [facility] Last Infusion: 03/31/23 10:10 Dose: Infused Documented By: AMBER Azithromycin 500 mg/ Sodium (Chloride) 250 mls @ 125 mls/hr IV Q24H [facility] Last Infusion: 03/31/23 13:17 Dose: Infused Documented By: AMBER Vancomycin HCl 1,250 mg/ (Sodium Chloride) 250 mls @ 166.667 mls/hr IV Q24H [facility] Last Admin: 03/31/23 11:56 Dose: 166.67 mls/hr Documented By: AMBER Furosemide 200 mg/ Sodium (Chloride) 100 mls @ 2.5 mls/hr IVCONT .Q24H [facility] Last Admin: 03/30/23 16:46 Dose: 5 mg/hr, 2.5 mls/hr Documented By: HAILEE Isosorbide Mononitrate (Isosorbide Mononitrate 30 Mg Tab.Er.24h) 30 mg PO DAILY [facility]; Protocol Last Admin: 03/31/23 08:52 Dose: 30 mg Documented By: AMBER Latanoprost (Latanoprost 0.005 % Ophth Maris 2.5 Ml Drops) 1 drop EYE-LEFT BEDTIME [facility] Last Admin: 03/29/23 21:34 Dose: 1 drop Documented By: JUICE Lisinopril (Lisinopril 20 Mg Tablet) 20 mg PO DAILY [facility]; Protocol Last Admin: 03/31/23 08:52 Dose: 20 mg Documented By: AMBER Methylprednisolone Sodium Succinate (Methylprednisolone Sod Succ 125 Mg/2 Ml Vial) 60 mg IVPUSH Q8H [facility] Last Admin: 03/31/23 08:52 Dose: 60 mg Documented By: AMBER Omeprazole (Omeprazole 40 Mg Capsule.Dr) 40 mg PO DAILY@0630 [facility] Last Admin: 03/31/23 05:56 Dose: 40 mg Documented By: JUICE Pharmacy Consult (Consult Rx Vancomycin Dosing) 1 each MISCELLANE DAILY PRN PRN Reason: Consult order Prednisolone Acetate (Prednisolone Acetate 1 % Oph Susp 5 Ml Drpbtl) 1 drop EYE-RIGHT DAILY [facility] Last Admin: 03/31/23 08:52 Dose: 1 drop Documented By: AMBER Sodium Chloride (0.9 % Sodium Chloride Flush 3 Ml Syringe) 3 ml IVFLUSH QSHIFT [facility] Last Admin: 03/31/23 07:51 Dose: 3 ml Documented By: AMBER Timolol Maleate (Timolol Maleate 0.5 % Oph Maris 5 Ml Drbtl) 1 drop EYE-LEFT BID [facility] Last Admin: 03/31/23 08:52 Dose: 1 drop Documented By: AMBER Labs 03/29/23 06:44 03/31/23 06:01 Labs: Laboratory Results - last 24 hr 03/31/23 03/31/23 03/31/23 06:01 06:14 10:05 Hold Purple Top SEE NOTE Anion Gap 14 Estim Creat Clear Calc 44.9 Estimated GFR > 60 Random Glucose 161 H Calcium 9.1 Random Vancomycin 15.1 Assessment and Plan (1) Guaiac positive stools: Status: Acute (2) CHF (congestive heart failure): Status: Acute Plan 84 y/o F with PMH significant for?HTN, glaucoma, macular degeneration, blind in right eye, and 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 Acute hypoxemic respiratory failure secondary to pneumonia with sepsis and chf Hypoxia gradually improving,now on high-flow [address] 03/27 showed multilobar infiltrate, small pleural effusion, moderate size reactive mediastinal lymph nodes DC IV steroids, transitioned to low-dose steroids, DC IV azithromycin, continue IV vancomycin and IV ceftriaxone Continue above treatment, supportive care, encourage incentive spirometry, wean oxygen as tolerated, follow clinical course closely. Strep pneumo and Legionella antigen pending. Acute diastolic CHF on admission, given IV Lasix in ED, later appeared euvolemic therefore diuretics held, Echo showed EF 65 to 70 noted to have worsening oxygen requirement 03/29 with bilateral crackles, treated with IV Lasix with good response Responding well to IV Lasix 5 mg , with decreased oxygen requirement, continue current treatment Seen by wet finisher wool Kassy added, dose of lisinopril increased. Being followed by pulmonology. follow BMP, BNP, strict I's and O's, daily weight Anemia, acute blood loss anemia +occult blood, no indication for transufsion, hematocrit improved and stable. Offered EGD but she prefers her GI doctor doing it at a later date, discussed with her risk of delaying Glaucoma :conitnue home eye drops. Anxiety on as needed glaucoma dvt prophylax: scd. need for inpt: acute hypoxia requiring high-flow oxygen requiring further workup, IV Lasix and IV antibiotics for pneumonia with sepsis. Quality Stroke Does the patient have a stroke diagnosis?: No VTE Prior VTE?: No VTE Risk Level:: Medical - moderate - high VTE Device Contraindication: N/A - Device Ordered VTE Drug Contraindication: N/A - Med Ordered
[2023-03-31] MEDS: guaiFENesin 200 MG/10 ML 10 ML LIQUID PO (14:09)
[2023-03-31] MEDS: Furosemide 200 MG in 0.9 % Sodium Chloride 80 ML IVCONT (16:29)
[2023-03-31 21:28] LABS: Myeloperoxidase Antibody <1.0 AI; Proteinase 3 PR3 Antibodies <1.0 AI
[2023-03-31] MEDS: Latanoprost 0.005 % Ophth Sol 2.5 ML DROPS 1 DROP EYE-LEFT (21:37)
[2023-03-31 22:28] LABS: Immunoglobulin E 37 kU/L (<OR=114)
[2023-04-01] VITALS (13 sets, daily range): BP systolic 126–160; BP diastolic 60–73; PULSE 59–92; RESP 20–24; TEMP 36.1–36.7; O2SAT 83–97
[2023-04-01 03:11] LABS: HIV AB/AG Nonreactive (Nonreactive); HIV Num 1 0.07 S/CO (0.00-0.99)
[2023-04-01] MEDS: Omeprazole 40 MG CAPSULE.DR PO (04:27)
[2023-04-01] MEDS: Acetaminophen 325 MG TABLET 650 MG PO ×2 (04:45→21:24)
[2023-04-01 07:20] LABS: Blood Urea Nitrogen 30 mg/dL (9-16); Calcium 8.9 mg/dL (8.4-10.2); Creatinine Clr Calc Pharmacy 44.9; Estimated Glomerular Filt Rate > 60; Glucose Random 103 mg/dL (60-115)
[2023-04-01 07:37] LABS: Anion Gap 16 (12-20); Carbon Dioxide 29 mmol/L (22-29); Chloride 98 mmol/L (96-108); Sodium 140 mmol/L (135-145)
[2023-04-01 07:41] LABS: Potassium 2.9 mmol/L (3.3-5.1)
[2023-04-01] MEDS: Potassium Chloride ER 20 MEQ TAB.ER.PRT 60 MEQ PO (08:47)
[2023-04-01] MEDS: lisinopriL 20 MG TABLET PO (08:47)
[2023-04-01] MEDS: predniSONE 10 MG TABLET PO (08:47)
[2023-04-01] MEDS: Isosorbide Mononitrate 30 MG TAB.ER.24H PO (08:47)
[2023-04-01] MEDS: Potassium Chloride/H20 10 MEQ/100 ML PIGGYBACK 100 MEQ IV (08:48)
[2023-04-01] MEDS: 0.9 % Sodium Chloride Flush 3 ML SYRINGE IVFLUSH ×3 (08:48→21:25)
--- NOTE | 2023-04-01 08:59 | P.PNPL_ITS ---
Subjective Subjective Date of Service: 04/01/23 Interval history: The patient was seen on exam. Still on the high-flow weaning slowly. She is responding well to the diuresis. Her white count now is normalized and her chest x-ray from the demonstrated some slight interval clearing. Will go ahead and repeat the x-ray at this time. She does have a cough difficult to expectorate. Her cough is indeed week. She does have the incentive spirometer and a I Katerine to help her with her chest physical therapy. Objective Data Labs 03/29/23 06:44 04/01/23 06:19 Labs: Laboratory Results - last 24 hr 03/29/23 03/31/23 04/01/23 13:48 10:05 06:19 Hold Purple Top Sodium 140 Potassium 2.9 L* Chloride 98 Carbon Dioxide 29 Anion Gap 16 BUN 30 H Creatinine 0.75 Estim Creat Clear Calc 44.9 Estimated GFR > 60 Random Glucose 103 Calcium 8.9 Random Vancomycin 15.1 IgE 37 Proteinase 3 (PR3) Ab <1.0 Myeloperoxidase Ab <1.0 HIV 1&2 Ab/P24 Ag 4thGn Nonreactive 04/01/23 06:20 Hold Purple Top SEE NOTE Sodium Potassium Chloride Carbon Dioxide Anion Gap BUN Creatinine Estim Creat Clear Calc Estimated GFR Random Glucose Calcium Random Vancomycin IgE Proteinase 3 (PR3) Ab Myeloperoxidase Ab HIV 1&2 Ab/P24 Ag 4thGn Microbiology Microbiology Results: Microbiology 03/23/23 06:29 Blood - Venous Blood Culture - Final No growth after 5 days. 03/23/23 06:29 Blood - Venous Blood Culture - Final No growth after 5 days. Review of Systems Constitutional: Reports fatigue and Denies fever(s) Denies nasal obstruction Cardiovascular: Denies chest pain, Reports dyspnea and Reports dyspnea on exertion Respiratory: Reports cough, Reports dyspnea, Reports dyspnea on exertion and Denies wheezing Gastrointestinal: Reports no additional gastrointestinal complaints Musculoskeletal: Reports myalgias Reports system reviewed and no additional complaints, except as documented Psychiatric: Reports anxiety Endocrine: Reports fatigue Hematologic/Lymphatic: Denies lymphadenopathy Allergic/Immunologic: Denies wheezing Physical Exam 2 Vital Signs: Vital Signs: Last Vital Signs Temp 97.9 F 04/01/23 06:57 Pulse 59 04/01/23 06:57 Resp 22 H 04/01/23 08:28 BP 148/69 H 04/01/23 06:57 Pulse Ox 92 04/01/23 06:57 O2 Del Method High Flow Nasal C annula 04/01/23 06:57 O2 Flow Rate 45 04/01/23 06:57 FiO2 55 04/01/23 06:57 Oxygen Flow Rate 4 03/23/23 06:08 BMI result Body Mass Index 23.6 Const: General: comfortable HEENT: Head: Yes normocephalic Neck: Neck: Yes supple Chest: Chest palpation & inspection: normal inspection of the chest Resp: Effort & Inspection: normal respiratory effort Auscultation: rales, no rhonchi and diminished lung sounds Cardio: Heart sounds: S1 normal heart sound present and S2 normal heart sound present GI: Palpation (GI): Soft to palpation Skin: General skin exam: no rashes or lesions noted Extrem: General: Yes no clubbing, cyanosis or edema Procedures Date of Service Date of Service: 04/01/23 Assessment and Plan Assessment and plan (1) Acute hypoxic respiratory failure: Status: Acute (2) Bilateral pneumonia: Status: Acute (3) ARDS (adult respiratory distress syndrome): Status: Acute Plan continue HF, tapering OOB to recliner broad spectrum Abx, completed 10 days of ceftriaxone. Will switch to levaquin in case she has an enteric infection partially treated PO prednisone diuresis as tolerated fair Time Spent With Patient Time: Total time managing care of this patient today ____ minutes. Progress Note: Quality Stroke Does the patient have a stroke diagnosis?: No
[2023-04-01] MEDS: prednisoLONE Acetate 1 % Oph Susp 5 ML DRPBTL 1 DROP EYE-RIGHT (09:15)
[2023-04-01] MEDS: timoloL maleate 0.5 % Oph Sol 5 ML DRBTL 1 DROP EYE-LEFT ×2 (09:16→21:23)
[2023-04-01] MEDS: levoFLOXacin/D5W 750 MG/150 ML PIGGYBACK 100 MG IV (10:20)
--- NOTE | 2023-04-01 11:08 | PC.RT ---
called to bedside for patient desatting. Upon arrival, pt. in bed with rn at bedside. informed that patient was on commode and subsequently desatted with activity. settings on hfnc increased and oxymask placed over cannula. Patient with very slow recovery on spo2. eventually, spo2 achieved at 88%. will continue to monitor.
--- NOTE | 2023-04-01 11:24 | HO.PM.IMPN ---
Subjective Subjective Date of Service: 04/01/23 Interval History: Complaining of thick phlegm unable to cough it up, denies shortness of breath, no chest pain, no fevers no chills no other acute issues overnight responding well to IV Lasix infusion is 1.7 L negative. Review of Systems All other system reviewed and negative. Physical Exam Vital Signs: Vital Signs: Last Vital Signs Temp 96.9 F 04/01/23 11:01 Pulse 70 04/01/23 11:01 Resp 24 H 04/01/23 11:06 BP 154/73 H 04/01/23 11:01 Pulse Ox 96 04/01/23 11:01 O2 Del Method High Flow Nasal C annula 04/01/23 11:01 O2 Flow Rate 50 04/01/23 11:01 FiO2 100 04/01/23 11:01 Oxygen Flow Rate 4 03/23/23 06:08 BMI result Body Mass Index 23.6 Const: Other: General awake alert x3, resting comfortably in no acute distress. Neck supple no JVD. CVS regular rate rhythm, Respiratory lungs persistent bilateral crackles,diminished breath sounds, no use of accessory muscles Gastrointestinal abdomen soft, non tender, bowel sounds audible, no guarding , no rigidity. Extremities no edema. Neuro non focal Skin no rash Psych appropriate affect Objective Data Active Medications Acetaminophen (Acetaminophen 325 Mg Tablet) 650 mg PO Q6H PRN PRN Reason: Pain, Mild (Pain Scale 1-3) Last Admin: 04/01/23 04:45 Dose: 650 mg Documented By: PENG Calcium Carbonate (Calcium Carbonate 500 Mg Tablet) 500 mg PO BID [facility] Last Admin: 04/01/23 08:48 Dose: 500 mg Documented By: CAROL Clonazepam (Clonazepam 0.5 Mg Tablet) 0.5 mg PO DAILY PRN PRN Reason: anxiety/restlessness Last Admin: 03/31/23 21:37 Dose: 0.5 mg Documented By: PENG Guaifenesin (Guaifenesin 200 Mg/10 Ml 10 Ml Liquid) 10 ml PO Q4H PRN PRN Reason: Cough Last Admin: 03/31/23 14:09 Dose: 10 ml Documented By: AMBER Vancomycin HCl 1,250 mg/ (Sodium Chloride) 250 mls @ 166.667 mls/hr IV Q24H [facility] Last Infusion: 03/31/23 13:51 Dose: Infused Documented By: AMBER Furosemide 200 mg/ Sodium (Chloride) 100 mls @ 2.5 mls/hr IVCONT .Q24H [facility] Last Admin: 03/31/23 16:29 Dose: 5 mg/hr, 2.5 mls/hr Documented By: AMBER Levofloxacin (Levaquin) 750 mg in 150 mls @ 100 mls/hr IV Q48H [facility] Last Admin: 04/01/23 10:20 Dose: 100 mls/hr Documented By: CAROL Isosorbide Mononitrate (Isosorbide Mononitrate 30 Mg Tab.Er.24h) 30 mg PO DAILY [facility]; Protocol Last Admin: 04/01/23 08:47 Dose: 30 mg Documented By: CAROL Latanoprost (Latanoprost 0.005 % Ophth Maris 2.5 Ml Drops) 1 drop EYE-LEFT BEDTIME [facility] Last Admin: 03/31/23 21:37 Dose: 1 drop Documented By: PENG Lisinopril (Lisinopril 20 Mg Tablet) 20 mg PO DAILY [facility]; Protocol Last Admin: 04/01/23 08:47 Dose: 20 mg Documented By: CAROL Omeprazole (Omeprazole 40 Mg Capsule.Dr) 40 mg PO DAILY@0630 [facility] Last Admin: 04/01/23 04:27 Dose: 40 mg Documented By: PENG Pharmacy Consult (Consult Rx Vancomycin Dosing) 1 each MISCELLANE DAILY PRN PRN Reason: Consult order Prednisolone Acetate (Prednisolone Acetate 1 % Oph Susp 5 Ml Drpbtl) 1 drop EYE-RIGHT DAILY [facility] Last Admin: 04/01/23 09:15 Dose: 1 drop Documented By: CAROL Prednisone (Prednisone 10 Mg Tablet) 10 mg PO DAILY [facility] Last Admin: 04/01/23 08:47 Dose: 10 mg Documented By: CAROL Sodium Chloride (0.9 % Sodium Chloride Flush 3 Ml Syringe) 3 ml IVFLUSH QSHIFT [facility] Last Admin: 04/01/23 08:48 Dose: 3 ml Documented By: CAROL Timolol Maleate (Timolol Maleate 0.5 % Oph Maris 5 Ml Drbtl) 1 drop EYE-LEFT BID [facility] Last Admin: 04/01/23 09:16 Dose: 1 drop Documented By: CAROL Labs 03/29/23 06:44 04/01/23 06:19 Labs: Laboratory Results - last 24 hr 03/29/23 04/01/23 04/01/23 13:48 06:19 06:20 Hold Purple Top SEE NOTE Anion Gap 16 Estim Creat Clear Calc 44.9 Estimated GFR > 60 Random Glucose 103 Calcium 8.9 IgE 37 Proteinase 3 (PR3) Ab <1.0 Myeloperoxidase Ab <1.0 HIV 1&2 Ab/P24 Ag 4thGn Nonreactive Assessment and Plan (1) Guaiac positive stools: Status: Acute (2) CHF (congestive heart failure): Status: Acute Plan 84 y/o F with PMH significant for?HTN, glaucoma, macular degeneration, blind in right eye, and 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 who presents with ,uri like symptoms -now feels congestion,dry cough. Acute hypoxemic respiratory failure secondary to pneumonia with sepsis and acute chf Hypoxia gradually improving,now on high-flow [address] 03/27 showed multilobar infiltrate, small pleural effusion, moderate size reactive mediastinal lymph nodes s/p IV steroids, now on low-dose steroids, IV vancomycin started to and IV levaquin started on 04/01 , status post IV ceftriaxone x 8d Continue above treatment, supportive care, encourage incentive spirometry, wean oxygen as tolerated, follow clinical course closely. Strep pneumo and Legionella antigen pending. Add cough expectorant Acute diastolic CHF on admission, given IV Lasix in ED, later appeared euvolemic therefore diuretics held, Echo showed EF 65 to 70 noted to have worsening oxygen requirement 03/29 with bilateral crackles, treated with IV Lasix with good response Responding well to IV Lasix 5 mg , with decreased oxygen requirement, continue current treatment Seen by knife setter Kassy added, dose of lisinopril increased. Being followed by pulmonology. BNP remains elevated will follow BMP, BNP, strict I's and O's, daily weight Acute hypokalemia due to diuretics will replete and follow Anemia, acute blood loss anemia +occult blood, no indication for transufsion, hematocrit improved and stable. Offered EGD but she prefers her GI doctor doing it at a later date, discussed with her risk of delaying Glaucoma :conitnue home eye drops. Anxiety on as needed Klonopin. dvt prophylax: scd. need for inpt: acute hypoxia requiring high-flow oxygen requiring further workup, IV Lasix and IV antibiotics for pneumonia with sepsis. Quality Stroke Does the patient have a stroke diagnosis?: No VTE Prior VTE?: No VTE Risk Level:: Medical - moderate - high VTE Device Contraindication: N/A - Device Ordered VTE Drug Contraindication: N/A - Med Ordered
[2023-04-01] MEDS: guaiFENesin LA 600 MG TAB.ER.12H PO ×2 (11:46→21:24)
[2023-04-01] MEDS: vancomycin HCL 1,250 MG in 0.9 % Sodium Chloride 250 ML 166.67 MG IV (11:46)
[2023-04-01 15:43] LABS: Cyclic Citrullinated Peptide <16 UNITS
[2023-04-01] MEDS: Furosemide 200 MG in 0.9 % Sodium Chloride 80 ML IVCONT (16:55)
[2023-04-01] MEDS: Potassium Chloride ER 20 MEQ TAB.ER.PRT PO (18:34)
[2023-04-01] MEDS: clonazePAM 0.5 MG TABLET 0.25 MG PO (21:25)
[2023-04-01] MEDS: Latanoprost 0.005 % Ophth Sol 2.5 ML DROPS 1 DROP EYE-LEFT (21:26)
[2023-04-01 21:43] LABS: Vancomycin Random 27.1 mcg/mL (15-20)
[2023-04-02] VITALS (13 sets, daily range): BP systolic 118–132; BP diastolic 57–64; PULSE 72–97; RESP 18–22; TEMP 36.1–36.7; O2SAT 75–97; BMI 23.1
[2023-04-02] MEDS: Acetaminophen 325 MG TABLET 650 MG PO ×2 (05:16→21:15)
[2023-04-02] MEDS: Omeprazole 40 MG CAPSULE.DR PO (05:17)
[2023-04-02 06:16] LABS: B Type Natriuretic Peptide 137 pg/mL (<100)
[2023-04-02 06:26] LABS: Anion Gap 18 (12-20); Blood Urea Nitrogen 29 mg/dL (9-16); Carbon Dioxide 32 mmol/L (22-29); Chloride 93 mmol/L (96-108); Creatinine Clr Calc Pharmacy 37.4; Estimated Glomerular Filt Rate 60; Glucose Random 120 mg/dL (60-115); Potassium 4.1 mmol/L (3.3-5.1); Sodium 139 mmol/L (135-145)
[2023-04-02] MEDS: guaiFENesin LA 600 MG TAB.ER.12H PO ×2 (08:26→20:24)
[2023-04-02] MEDS: predniSONE 10 MG TABLET PO (08:26)
[2023-04-02] MEDS: Isosorbide Mononitrate 30 MG TAB.ER.24H PO (08:26)
[2023-04-02] MEDS: lisinopriL 20 MG TABLET PO (08:26)
[2023-04-02] MEDS: 0.9 % Sodium Chloride Flush 3 ML SYRINGE IVFLUSH ×3 (08:27→23:40)
[2023-04-02] MEDS: prednisoLONE Acetate 1 % Oph Susp 5 ML DRPBTL 1 DROP EYE-RIGHT (08:35)
[2023-04-02] MEDS: timoloL maleate 0.5 % Oph Sol 5 ML DRBTL 1 DROP EYE-LEFT ×2 (08:35→20:24)
--- NOTE | 2023-04-02 10:23 | MHC.CM.PN ---
Per ROUNDS discussion, Patient is not yet medically cleared for dc (IV Levaquin & IV Vanco); Patient may benefit from a PT Eval to assist with disposition. CM will follow.
[2023-04-02 10:32] LABS: Vancomycin Random 18.3 mcg/mL (15-20)
--- NOTE | 2023-04-02 10:43 | HE.PHANOTE ---
RE: VANCO patients level came back at 18.3. Decreased dose to 1000 mg Q24H as the renal function worsened, Scr up to 0.9 from 0.7 yesterday. Due to unstable renal function a level will be drawn tomorrow 04/03 @1000 to ensure safety vs efficacy.
[2023-04-02] MEDS: vancomycin HCL 1,000 MG in 0.9 % Sodium Chloride 250 ML 270 MG IV (12:15)
--- NOTE | 2023-04-02 13:19 | P.PNPL_ITS ---
Subjective Subjective Date of Service: 04/02/23 Interval history: The patient was seen on exam. She is slowly improving. Her chest x-ray showed some improvement in the airspace disease. Still consistent with ARDS. Volume status is significantly better. She was taken off the Lasix drip secretions her BUN significantly elevated. She continues to be on the high-flow. Objective Data Labs 03/29/23 06:44 04/02/23 05:41 Labs: Laboratory Results - last 24 hr 03/29/23 04/01/23 04/02/23 13:48 20:14 05:41 Sodium 139 Potassium 4.1 D Chloride 93 L Carbon Dioxide 32 H Anion Gap 18 BUN 29 H Creatinine 0.90 Estim Creat Clear Calc 37.4 Estimated GFR 60 Random Glucose 120 H Calcium 10.0 D B-Natriuretic Peptide 137 H Random Vancomycin 27.1 H* Cycl Citrul Peptide IgG <16 04/02/23 10:12 Sodium Potassium Chloride Carbon Dioxide Anion Gap BUN Creatinine Estim Creat Clear Calc Estimated GFR Random Glucose Calcium B-Natriuretic Peptide Random Vancomycin 18.3 Cycl Citrul Peptide IgG Microbiology Microbiology Results: Microbiology 03/23/23 06:29 Blood - Venous Blood Culture - Final No growth after 5 days. 03/23/23 06:29 Blood - Venous Blood Culture - Final No growth after 5 days. Review of Systems Constitutional: Reports fatigue and Denies fever(s) Denies nasal obstruction Cardiovascular: Denies chest pain, Reports dyspnea and Reports dyspnea on exertion Respiratory: Reports cough, Reports dyspnea, Reports dyspnea on exertion and Denies wheezing Gastrointestinal: Reports no additional gastrointestinal complaints Musculoskeletal: Reports myalgias Reports system reviewed and no additional complaints, except as documented Psychiatric: Reports anxiety Endocrine: Reports fatigue Hematologic/Lymphatic: Denies lymphadenopathy Allergic/Immunologic: Denies wheezing Physical Exam 2 Vital Signs: Vital Signs: Last Vital Signs Temp 98.0 F 04/02/23 11:03 Pulse 83 04/02/23 11:03 Resp 22 H 04/02/23 12:08 BP 118/63 04/02/23 11:03 Pulse Ox 93 04/02/23 11:03 O2 Del Method High Flow Nasal C annula 04/02/23 11:03 O2 Flow Rate 40 04/02/23 11:03 FiO2 70 04/02/23 11:03 Oxygen Flow Rate 4 03/23/23 06:08 BMI result Body Mass Index 23.1 Const: General: comfortable HEENT: Head: Yes normocephalic Neck: Neck: Yes supple Chest: Chest palpation & inspection: normal inspection of the chest Resp: Effort & Inspection: normal respiratory effort Auscultation: rales, no rhonchi and diminished lung sounds Cardio: Heart sounds: S1 normal heart sound present and S2 normal heart sound present GI: Palpation (GI): Soft to palpation Skin: General skin exam: no rashes or lesions noted Extrem: General: Yes no clubbing, cyanosis or edema Procedures Date of Service Date of Service: 04/02/23 Assessment and Plan Assessment and plan (1) Acute hypoxic respiratory failure: Status: Acute (2) Bilateral pneumonia: Status: Acute (3) ARDS (adult respiratory distress syndrome): Problem details: Likely due to pneumonia Status: Acute Plan continue HF, tapering. Can try Oxymizer pendant or dry high-flow to wean off the high-flow unit OOB to recliner broad spectrum Abx, levaquin in case she has an enteric infection partially treated PO prednisone diuresis as tolerated, off the Lasix drip fair Time Spent With Patient Time: Total time managing care of this patient today ____ minutes. Progress Note: Quality Stroke Does the patient have a stroke diagnosis?: No
--- NOTE | 2023-04-02 15:57 | P.PNIM_ITS ---
Subjective Subjective Date of Service: 04/02/23 Interval History: Feeling better this morning, complaining of anxiety, no shortness of breath,no chest pain,no fever chills Review of Systems All other system reviewed and negative. Physical Exam 2 Vital Signs: Vital Signs: Last Vital Signs Temp 98.0 F 04/02/23 11:03 Pulse 83 04/02/23 11:03 Resp 18 04/02/23 15:24 BP 118/63 04/02/23 11:03 Pulse Ox 93 04/02/23 11:03 O2 Del Method High Flow Nasal C annula 04/02/23 11:03 O2 Flow Rate 40 04/02/23 11:03 FiO2 70 04/02/23 11:03 Oxygen Flow Rate 4 03/23/23 06:08 BMI result Body Mass Index 23.1 Const: Other: General awake alert x3, resting comfortably in no acute distress. Neck supple no JVD. CVS regular rate rhythm, Respiratory lungs persistent bilateral mid lung dry crackles,diminished breath sounds, no use of accessory muscles Gastrointestinal abdomen soft, non tender, bowel sounds audible, no guarding , no rigidity. Extremities no edema. Neuro non focal Skin no rash Psych appropriate affect Objective Data Active Medications Acetaminophen (Acetaminophen 325 Mg Tablet) 650 mg PO Q6H PRN PRN Reason: Pain, Mild (Pain Scale 1-3) Last Admin: 04/02/23 05:16 Dose: 650 mg Documented By: JUICE Calcium Carbonate (Calcium Carbonate 500 Mg Tablet) 500 mg PO BID [facility] Last Admin: 04/02/23 08:26 Dose: 500 mg Documented By: JC Clonazepam (Clonazepam 0.5 Mg Tablet) 0.25 mg PO DAILY PRN PRN Reason: anxiety/restlessness Last Admin: 04/01/23 21:25 Dose: 0.25 mg Documented By: JUICE Guaifenesin (Guaifenesin 200 Mg/10 Ml 10 Ml Liquid) 10 ml PO Q4H PRN PRN Reason: Cough Last Admin: 03/31/23 14:09 Dose: 10 ml Documented By: AMBER Guaifenesin (Guaifenesin La 600 Mg Tab.Er.12h) 600 mg PO BID [facility] Last Admin: 04/02/23 08:26 Dose: 600 mg Documented By: JC Levofloxacin (Levaquin) 750 mg in 150 mls @ 100 mls/hr IV Q48H [facility] Last Infusion: 04/01/23 12:09 Dose: Infused Documented By: CAROL Vancomycin HCl 1,000 mg/ (Sodium Chloride) 270 mls @ 270 mls/hr IV Q24H [facility] Last Infusion: 04/02/23 13:38 Dose: Infused Documented By: JC Isosorbide Mononitrate (Isosorbide Mononitrate 30 Mg Tab.Er.24h) 30 mg PO DAILY [facility]; Protocol Last Admin: 04/02/23 08:26 Dose: 30 mg Documented By: JC Latanoprost (Latanoprost 0.005 % Ophth Maris 2.5 Ml Drops) 1 drop EYE-LEFT BEDTIME [facility] Last Admin: 04/01/23 21:26 Dose: 1 drop Documented By: JUICE Lisinopril (Lisinopril 20 Mg Tablet) 20 mg PO DAILY [facility]; Protocol Last Admin: 04/02/23 08:26 Dose: 20 mg Documented By: JC Omeprazole (Omeprazole 40 Mg Capsule.Dr) 40 mg PO DAILY@0630 [facility] Last Admin: 04/02/23 05:17 Dose: 40 mg Documented By: JUICE Pharmacy Consult (Consult Rx Vancomycin Dosing) 1 each MISCELLANE DAILY PRN PRN Reason: Consult order Prednisolone Acetate (Prednisolone Acetate 1 % Oph Susp 5 Ml Drpbtl) 1 drop EYE-RIGHT DAILY [facility] Last Admin: 04/02/23 08:35 Dose: 1 drop Documented By: JC Prednisone (Prednisone 10 Mg Tablet) 10 mg PO DAILY [facility] Last Admin: 04/02/23 08:26 Dose: 10 mg Documented By: JC Sodium Chloride (0.9 % Sodium Chloride Flush 3 Ml Syringe) 3 ml IVFLUSH QSHIFT [facility] Last Admin: 04/02/23 15:35 Dose: 3 ml Documented By: DA Timolol Maleate (Timolol Maleate 0.5 % Oph Maris 5 Ml Drbtl) 1 drop EYE-LEFT BID [facility] Last Admin: 04/02/23 08:35 Dose: 1 drop Documented By: JC Labs 03/29/23 06:44 04/02/23 05:41 Labs: Laboratory Results - last 24 hr 04/01/23 04/02/23 04/02/23 20:14 05:41 10:12 Anion Gap 18 Estim Creat Clear Calc 37.4 Estimated GFR 60 Random Glucose 120 H Calcium 10.0 D B-Natriuretic Peptide 137 H Random Vancomycin 27.1 H* 18.3 Assessment and Plan (1) Guaiac positive stools: Status: Acute (2) CHF (congestive heart failure): Status: Acute Plan 84 y/o F with PMH significant for?HTN, glaucoma, macular degeneration, blind in right eye, and 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 Acute hypoxemic respiratory failure secondary to pneumonia with sepsis ,ARDS and acute chf Hypoxia gradually improving,now on high-flow 70 L , high-flow requirement fluctuating chest CT 03/27 showed multilobar infiltrate, small pleural effusion, moderate size reactive mediastinal lymph nodes s/p IV steroids, now on po steroids, IV vancomycin started to 17 and IV levaquin started on 04/01 , status post IV ceftriaxone x 8d Continue above treatment, supportive care, encourage incentive spirometry, cough medicine, wean oxygen as tolerated, follow clinical course closely. Strep pneumo and Legionella antigen pending. Acute diastolic CHF on admission, given IV Lasix in ED, later appeared euvolemic therefore diuretics held, Echo showed EF 65 to 70 Responded well to IV Lasix 5 mg , with decreased oxygen requirement, Appears euvolemic bicarb trending up will DC IV Lasix Will use Lasix as needed Seen by compliance monitor Imlisbethr added, dose of lisinopril increased. Being followed by pulmonology. BNP dropped significantly, follow BMP, and clinical course Acute hypokalemia due to diuretics repleted and normalized Anemia, acute blood loss anemia +occult blood, no indication for transufsion, hematocrit improved and stable. Offered EGD but she prefers her GI doctor doing it at a later date, discussed with her risk of delaying Glaucoma :conitnue home eye drops. Anxiety on as needed Klonopin. dvt prophylax: scd. need for inpt: acute hypoxia requiring high-flow oxygen requiring further workup, on IV antibiotics for pneumonia with sepsis. Quality Stroke Does the patient have a stroke diagnosis?: No VTE Prior VTE?: No VTE Risk Level:: Medical - moderate - high VTE Device Contraindication: N/A - Device Ordered VTE Drug Contraindication: N/A - Med Ordered
[2023-04-02] MEDS: Latanoprost 0.005 % Ophth Sol 2.5 ML DROPS 1 DROP EYE-LEFT (20:27)
[2023-04-02] MEDS: clonazePAM 0.5 MG TABLET 0.25 MG PO (21:12)
[2023-04-03] VITALS (11 sets, daily range): BP systolic 109–151; BP diastolic 53–67; PULSE 68–107; RESP 17–22; TEMP 36.1–36.8; O2SAT 67–93; BMI 22.4
[2023-04-03] MEDS: Omeprazole 40 MG CAPSULE.DR PO (06:01)
[2023-04-03 06:09] LABS: Legionella Ag Urine Not Detected (Not Detected)
[2023-04-03 06:18] LABS: Hematocrit 31.2 % (37.0-47.0); Mean Corpuscular HGB Conc 32.1 g/dl (31.0-35.0); Mean Corpuscular Hemoglobin 30.5 pg (27.0-33.0); Mean Corpuscular Volume 95.1 fL (80.0-98.0); Mean Platelet Volume 11.4 fL (9.4-12.3); NRBC Pct Auto 0.5 /100WBC (0.0-0.2); Platelet Count 188 X10*3/uL (160-400); Red Blood Count 3.28 X10*6/uL (4.20-5.50); Red Cell Distribution Width 15.9 % (11.0-16.0)
[2023-04-03 06:28] LABS: Anion Gap 16 (12-20); Blood Urea Nitrogen 26 mg/dL (9-16); Calcium 9.3 mg/dL (8.4-10.2); Carbon Dioxide 31 mmol/L (22-29); Chloride 95 mmol/L (96-108); Creatinine Clr Calc Pharmacy 39.9; Estimated Glomerular Filt Rate > 60; Glucose Random 124 mg/dL (60-115); Potassium 3.6 mmol/L (3.3-5.1); Sodium 138 mmol/L (135-145)
[2023-04-03] MEDS: Isosorbide Mononitrate 30 MG TAB.ER.24H PO (09:49)
[2023-04-03] MEDS: 0.9 % Sodium Chloride Flush 3 ML SYRINGE IVFLUSH ×3 (09:50→20:45)
[2023-04-03] MEDS: predniSONE 20 MG TABLET PO (09:50)
[2023-04-03] MEDS: lisinopriL 20 MG TABLET PO (09:50)
[2023-04-03] MEDS: guaiFENesin LA 600 MG TAB.ER.12H PO ×2 (09:50→20:44)
[2023-04-03] MEDS: timoloL maleate 0.5 % Oph Sol 5 ML DRBTL 1 DROP EYE-LEFT ×2 (10:00→20:45)
[2023-04-03] MEDS: prednisoLONE Acetate 1 % Oph Susp 5 ML DRPBTL 1 DROP EYE-RIGHT (10:01)
[2023-04-03] MEDS: levoFLOXacin/D5W 750 MG/150 ML PIGGYBACK 100 MG IV (10:37)
[2023-04-03 11:12] LABS: Vancomycin Random 15.7 mcg/mL (15-20)
--- NOTE | 2023-04-03 12:09 | P.PNIM_ITS ---
Subjective Subjective Date of Service: 04/03/23 Interval History: seen and examined this morning follow up for respiratory failure appears comfortable, awake, alert; denies sob, cough improving remains on high flow oxygen Review of Systems Review of Systems: Yes all other systems are reviewed and are negative Constitutional Constitutional: Denies chills and Denies fever(s) Cardiovascular Cardiovascular: Denies chest pain, Denies palpitations and Denies dyspnea Respiratory Respiratory: Reports cough and Denies dyspnea Endocrine Endocrine: Denies palpitations Physical Exam 2 Vital Signs: Vital Signs: Last Vital Signs Temp 97.5 F 04/03/23 11:22 Pulse 99 04/03/23 11:22 Resp 22 H 04/03/23 11:51 BP 124/53 L 04/03/23 11:22 Pulse Ox 93 04/03/23 11:22 O2 Del Method High Flow Nasal C annula 04/03/23 11:22 O2 Flow Rate 74 04/03/23 11:22 FiO2 30 04/03/23 11:22 Oxygen Flow Rate 4 03/23/23 06:08 BMI result Body Mass Index 22.4 Const: General: cooperative, comfortable, no acute distress, alert and awake Nutritional Appearance: thin Orientation/consciousness: patient oriented x3 Resp: Other: diminished; crackles primarily left side Effort & Inspection: normal respiratory effort, able to speak in complete sentences, no respiratory distress and no use of accessory muscles Cardio: Jugular venous distension: no JVD Rate: regular rate GI: Inspection: No distended Palpation (GI): Soft to palpation and nontender Neuro: General: patient oriented x3, moves all extremities and CN's II-XI intact bilaterally Extrem: General: Yes no pedal edema Objective Data Active Medications Acetaminophen (Acetaminophen 325 Mg Tablet) 650 mg PO Q6H PRN PRN Reason: Pain, Mild (Pain Scale 1-3) Last Admin: 04/02/23 21:15 Dose: 650 mg Documented By: DA Calcium Carbonate (Calcium Carbonate 500 Mg Tablet) 500 mg PO BID EVELIO Last Admin: 04/03/23 09:49 Dose: 500 mg Documented By: RENETTA Clonazepam (Clonazepam 0.5 Mg Tablet) 0.25 mg PO DAILY PRN PRN Reason: anxiety/restlessness Last Admin: 04/02/23 21:12 Dose: 0.25 mg Documented By: DA Guaifenesin (Guaifenesin 200 Mg/10 Ml 10 Ml Liquid) 10 ml PO Q4H PRN PRN Reason: Cough Last Admin: 03/31/23 14:09 Dose: 10 ml Documented By: AMBER Guaifenesin (Guaifenesin La 600 Mg Tab.Er.12h) 600 mg PO BID [facility] Last Admin: 04/03/23 09:50 Dose: 600 mg Documented By: RENETTA Levofloxacin (Levaquin) 750 mg in 150 mls @ 100 mls/hr IV Q48H [facility] Last Admin: 04/03/23 10:37 Dose: 100 mls/hr Documented By: RENETTA Vancomycin HCl 1,000 mg/ (Sodium Chloride) 270 mls @ 270 mls/hr IV Q24H [facility] Last Infusion: 04/02/23 13:38 Dose: Infused Documented By: JC Isosorbide Mononitrate (Isosorbide Mononitrate 30 Mg Tab.Er.24h) 30 mg PO DAILY [facility]; Protocol Last Admin: 04/03/23 09:49 Dose: 30 mg Documented By: RENETTA Latanoprost (Latanoprost 0.005 % Ophth Maris 2.5 Ml Drops) 1 drop EYE-LEFT BEDTIME [facility] Last Admin: 04/02/23 20:27 Dose: 1 drop Documented By: DA Lisinopril (Lisinopril 20 Mg Tablet) 20 mg PO DAILY [facility]; Protocol Last Admin: 04/03/23 09:50 Dose: 20 mg Documented By: RENETTA Omeprazole (Omeprazole 40 Mg Capsule.Dr) 40 mg PO DAILY@0630 [facility] Last Admin: 04/03/23 06:01 Dose: 40 mg Documented By: GINA Pharmacy Consult (Consult Rx Vancomycin Dosing) 1 each MISCELLANE DAILY PRN PRN Reason: Consult order Prednisolone Acetate (Prednisolone Acetate 1 % Oph Susp 5 Ml Drpbtl) 1 drop EYE-RIGHT DAILY [facility] Last Admin: 04/03/23 10:01 Dose: 1 drop Documented By: RENETTA Prednisone (Prednisone 20 Mg Tablet) 20 mg PO DAILY [facility] Last Admin: 04/03/23 09:50 Dose: 20 mg Documented By: RENETTA Sodium Chloride (0.9 % Sodium Chloride Flush 3 Ml Syringe) 3 ml IVFLUSH QSHIFT [facility] Last Admin: 04/03/23 09:50 Dose: 3 ml Documented By: RENETTA Timolol Maleate (Timolol Maleate 0.5 % Oph Maris 5 Ml Drbtl) 1 drop EYE-LEFT BID [facility] Last Admin: 04/03/23 10:00 Dose: 1 drop Documented By: RENETTA Labs 04/03/23 05:55 04/03/23 05:55 Labs: Laboratory Results - last 24 hr 03/29/23 04/03/23 04/03/23 13:38 05:55 10:26 MCV 95.1 MCH 30.5 MCHC 32.1 RDW 15.9 Plt Count 188 D MPV 11.4 Absolute Nucleated RBC 0.070 H Nucleated RBC % (auto) 0.5 H Anion Gap 16 Estim Creat Clear Calc 39.9 Estimated GFR > 60 Random Glucose 124 H Calcium 9.3 D Random Vancomycin 15.7 Ur L.pneumophila Ag Not Detected Assessment and Plan (1) ARDS (adult respiratory distress syndrome): Status: Acute (2) Acute hypoxic respiratory failure: Status: Acute Plan 84 y/o F with PMH significant for?HTN, glaucoma, macular degeneration, blind in right eye, and 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 who presents with ,uri like symptoms Acute hypoxemic respiratory failure secondary to pneumonia with sepsis, ARDS and acute chf Hypoxia gradually improving, but still requiring high flow, high-flow requirement fluctuating chest CT 03/27 showed multilobar infiltrate, small pleural effusion, moderate size reactive mediastinal lymph nodes repeat CXR 04/01 with interval decrease in RUL, YORDAN and LLL infiltrates s/p IV steroids, now on po steroids, IV vancomycin started to and IV levaquin started on 04/01, status post IV ceftriaxone x 8d Continue above treatment, supportive care, encourage incentive spirometry, cough medicine, wean oxygen as tolerated, follow clinical course closely RPP negative. Strep pneumo pending, Legionella antigen negative. Blood cultures negative to date pulmonology following Acute diastolic CHF on admission, given IV Lasix in ED, later appeared euvolemic therefore diuretics held Echo showed EF 65 to 70 with normally functional bioprosthetic aortic valve Responded well to IV Lasix 5 mg , with decreased oxygen requirement Appears euvolemic bicarb trending up Lasix drip stopped 04/02. Not on lasix at baseline Will use Lasix as needed Seen by mending carrier Kassy added, dose of lisinopril increased. BNP dropped significantly, follow BMP, and clinical course Acute hypokalemia due to diuretics repleted and normalized Anemia, acute blood loss anemia +occult blood, no indication for transfusion, hematocrit improved and stable. Offered EGD but she prefers her GI doctor doing it at a later date, discussed with her risk of delaying Glaucoma continue home eye drops. Anxiety as needed Klonopin. dvt prophylax: scd. need for inpt: acute hypoxia requiring high-flow oxygen requiring further workup, on IV antibiotics for pneumonia Quality Stroke Does the patient have a stroke diagnosis?: No VTE Prior VTE?: No VTE Risk Level:: Medical - moderate - high VTE Device Contraindication: N/A - Device Ordered VTE Drug Contraindication: N/A - Med Ordered
[2023-04-03] MEDS: vancomycin HCL 1,000 MG in 0.9 % Sodium Chloride 250 ML 270 MG IV (12:13)
[2023-04-03] MEDS: Latanoprost 0.005 % Ophth Sol 2.5 ML DROPS 1 DROP EYE-LEFT (20:44)
[2023-04-03] MEDS: Acetaminophen 325 MG TABLET 650 MG PO (20:56)
[2023-04-03] MEDS: clonazePAM 0.5 MG TABLET 0.25 MG PO (23:44)
[2023-04-04] VITALS (9 sets, daily range): BP systolic 104–129; BP diastolic 51–65; PULSE 65–111; RESP 16–92; TEMP 36.1–37; O2SAT 89–96; BMI 22.3
[2023-04-04] MEDS: Acetaminophen 325 MG TABLET 650 MG PO (06:01)
[2023-04-04] MEDS: Omeprazole 40 MG CAPSULE.DR PO (06:02)
[2023-04-04 06:31] LABS: Anion Gap 12 (12-20); Blood Urea Nitrogen 25 mg/dL (9-16); Carbon Dioxide 28 mmol/L (22-29); Chloride 101 mmol/L (96-108); Creatinine Clr Calc Pharmacy 35.8; Estimated Glomerular Filt Rate > 60; Glucose Random 115 mg/dL (60-115); Potassium 3.7 mmol/L (3.3-5.1); Sodium 137 mmol/L (135-145)
[2023-04-04] MEDS: guaiFENesin LA 600 MG TAB.ER.12H PO ×2 (09:35→20:10)
[2023-04-04] MEDS: Isosorbide Mononitrate 30 MG TAB.ER.24H PO (09:35)
[2023-04-04] MEDS: 0.9 % Sodium Chloride Flush 3 ML SYRINGE IVFLUSH (09:35)
[2023-04-04] MEDS: predniSONE 20 MG TABLET PO (09:35)
[2023-04-04] MEDS: lisinopriL 20 MG TABLET PO (09:35)
[2023-04-04] MEDS: prednisoLONE Acetate 1 % Oph Susp 5 ML DRPBTL 1 DROP EYE-RIGHT (09:36)
[2023-04-04] MEDS: timoloL maleate 0.5 % Oph Sol 5 ML DRBTL 1 DROP EYE-LEFT ×2 (09:36→20:11)
--- NOTE | 2023-04-04 10:20 | MHC.CM.PN ---
Per ROUNDS discussion, Patient is on high flow O2 and is not yet medically cleared for dc. Patient will benefit from a PT Eval to assist with disposition and CM will continue to follow.
[2023-04-04 10:32] LABS: Vancomycin Random 13.3 mcg/mL (15-20)
[2023-04-04] MEDS: vancomycin HCL 1,000 MG in 0.9 % Sodium Chloride 250 ML 270 MG IV (13:10)
--- NOTE | 2023-04-04 15:22 | PC.RT ---
Pt transitioned from 40%/40lpm HFNC to 8 lpm holt cannula. Pt shantell well, no desaturation or inc wob/sob noted. RN titrated down to 4 lpm with spo2 96% at this time. HFNC removed from bedside, RN aware.
--- NOTE | 2023-04-04 15:35 | P.PNIM_ITS ---
Subjective Subjective Date of Service: 04/04/23 Interval History: seen and examined this morning follow up for respiratory failure no sob feeling well Review of Systems Review of Systems: Yes all other systems are reviewed and are negative Constitutional Constitutional: Denies chills and Denies fever(s) Cardiovascular Cardiovascular: Denies chest pain and Denies dyspnea Respiratory Respiratory: Denies cough and Denies dyspnea Gastrointestinal Gastrointestinal: Denies abdominal pain Physical Exam 2 Vital Signs: Vital Signs: Last Vital Signs Temp 98.6 F 04/04/23 11:41 Pulse 78 04/04/23 11:41 Resp 16 04/04/23 11:41 BP 104/57 L 04/04/23 11:41 Pulse Ox 91 L 04/04/23 11:41 O2 Del Method Nasal Cannula 04/04/23 11:41 O2 Flow Rate 8 04/04/23 11:41 FiO2 55 04/04/23 07:05 Oxygen Flow Rate 4 03/23/23 06:08 BMI result Body Mass Index 22.3 Const: General: cooperative, comfortable, no acute distress, alert and awake Nutritional Appearance: thin Orientation/consciousness: patient oriented x3 Resp: Effort & Inspection: normal respiratory effort, able to speak in complete sentences, no respiratory distress and no use of accessory muscles A uscultation: clear to auscultation bilaterally Cardio: Jugular venous distension: no JVD Rate: regular rate GI: Inspection: No distended Palpation (GI): Soft to palpation and nontender Neuro: General: patient oriented x3, moves all extremities and CN's II-XI intact bilaterally Extrem: General: Yes no pedal edema Objective Data Active Medications Acetaminophen (Acetaminophen 325 Mg Tablet) 650 mg PO Q6H PRN PRN Reason: Pain, Mild (Pain Scale 1-3) Last Admin: 04/04/23 06:01 Dose: 650 mg Documented By: BRADY Calcium Carbonate (Calcium Carbonate 500 Mg Tablet) 500 mg PO BID EVELIO Last Admin: 04/04/23 09:35 Dose: 500 mg Documented By: DIONI Clonazepam (Clonazepam 0.5 Mg Tablet) 0.25 mg PO DAILY PRN PRN Reason: anxiety/restlessness Last Admin: 04/03/23 23:44 Dose: 0.25 mg Documented By: BRADY Guaifenesin (Guaifenesin 200 Mg/10 Ml 10 Ml Liquid) 10 ml PO Q4H PRN PRN Reason: Cough Last Admin: 03/31/23 14:09 Dose: 10 ml Documented By: AMBER Guaifenesin (Guaifenesin La 600 Mg Tab.Er.12h) 600 mg PO BID [facility] Last Admin: 04/04/23 09:35 Dose: 600 mg Documented By: DIONI Levofloxacin (Levaquin) 750 mg in 150 mls @ 100 mls/hr IV Q48H [facility] Last Infusion: 04/03/23 13:12 Dose: Infused Documented By: RENETTA Vancomycin HCl 1,000 mg/ (Sodium Chloride) 270 mls @ 270 mls/hr IV Q24H [facility] Last Infusion: 04/04/23 14:10 Dose: Infused Documented By: DIONI Isosorbide Mononitrate (Isosorbide Mononitrate 30 Mg Tab.Er.24h) 30 mg PO DAILY [facility]; Protocol Last Admin: 04/04/23 09:35 Dose: 30 mg Documented By: DIONI Latanoprost (Latanoprost 0.005 % Ophth Maris 2.5 Ml Drops) 1 drop EYE-LEFT BEDTIME [facility] Last Admin: 04/03/23 20:44 Dose: 1 drop Documented By: BRADY Lisinopril (Lisinopril 20 Mg Tablet) 20 mg PO DAILY [facility]; Protocol Last Admin: 04/04/23 09:35 Dose: 20 mg Documented By: DIONI Omeprazole (Omeprazole 40 Mg Capsule.Dr) 40 mg PO DAILY@0630 [facility] Last Admin: 04/04/23 06:02 Dose: 40 mg Documented By: BRADY Pharmacy Consult (Consult Rx Vancomycin Dosing) 1 each MISCELLANE DAILY PRN PRN Reason: Consult order Prednisolone Acetate (Prednisolone Acetate 1 % Oph Susp 5 Ml Drpbtl) 1 drop EYE-RIGHT DAILY [facility] Last Admin: 04/04/23 09:36 Dose: 1 drop Documented By: DIONI Prednisone (Prednisone 20 Mg Tablet) 20 mg PO DAILY [facility] Last Admin: 04/04/23 09:35 Dose: 20 mg Documented By: DIONI Sodium Chloride (0.9 % Sodium Chloride Flush 3 Ml Syringe) 3 ml IVFLUSH QSHIFT [facility] Last Admin: 04/04/23 09:35 Dose: 3 ml Documented By: DIONI Timolol Maleate (Timolol Maleate 0.5 % Oph Maris 5 Ml Drbtl) 1 drop EYE-LEFT BID [facility]ELIO Last Admin: 04/04/23 09:36 Dose: 1 drop Documented By: DIONI Labs 04/03/23 05:55 04/04/23 05:49 Labs: Laboratory Results - last 24 hr 04/04/23 04/04/23 05:49 10:11 Hold Purple Top SEE NOTE Anion Gap 12 Estim Creat Clear Calc 35.8 Estimated GFR > 60 Random Glucose 115 Calcium 9.0 Random Vancomycin 13.3 L Assessment and Plan (1) ARDS (adult respiratory distress syndrome): Status: Acute (2) Guaiac positive stools: Status: Acute (3) Acute hypoxic respiratory failure: Status: Acute Plan 84 y/o F with PMH significant for?HTN, glaucoma, macular degeneration, blind in right eye, and 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 who presents with ,uri like symptoms Acute hypoxemic respiratory failure secondary to pneumonia with sepsis, ARDS and acute chf Hypoxia gradually improving, able to be weaned off of high flow this afternoon chest CT 03/27 showed multilobar infiltrate, small pleural effusion, moderate size reactive mediastinal lymph nodes repeat CXR 04/01 with interval decrease in RUL, YORDAN and LLL infiltrates s/p IV steroids, now on po steroids, IV vancomycin started to and IV levaquin started on 04/01, status post IV ceftriaxone x 8d Continue above treatment, supportive care, encourage incentive spirometry, cough medicine, wean oxygen as tolerated, follow clinical course closely RPP negative. Strep pneumo pending, Legionella antigen negative. Blood cultures negative to date pulmonology following Acute diastolic CHF on admission, given IV Lasix in ED, later appeared euvolemic therefore diuretics held Echo showed EF 65 to 70 with normally functional bioprosthetic aortic valve Responded well to IV Lasix 5 mg , with decreased oxygen requirement Appears euvolemic bicarb trending up Lasix drip stopped 04/02. Not on lasix at baseline Will use Lasix as needed Seen by elementary math tutor Imdur added, dose of lisinopril increased. BNP dropped significantly, follow BMP, and clinical course Acute hypokalemia due to diuretics repleted and normalized Anemia, acute blood loss anemia +occult blood, no indication for transfusion, hematocrit improved and stable. Offered EGD but she prefers her GI doctor doing it at a later date, discussed with her risk of delaying Glaucoma continue home eye drops. Anxiety as needed Klonopin. dvt prophylax: scd. need for inpt: acute hypoxia requiring supplemental oxygen, on IV antibiotics for pneumonia dispo - will need PT eval Quality Stroke Does the patient have a stroke diagnosis?: No VTE Prior VTE?: No VTE Risk Level:: Medical - moderate - high VTE Device Contraindication: N/A - Device Ordered VTE Drug Contraindication: N/A - Med Ordered
[2023-04-04] MEDS: Latanoprost 0.005 % Ophth Sol 2.5 ML DROPS 1 DROP EYE-LEFT (20:10)
[2023-04-05 03:06] VITALS: BP 139/64; PULSE 77; RESP 18; TEMP 36.1; O2SAT 97
[2023-04-05] MEDS: Omeprazole 40 MG CAPSULE.DR PO (05:57)
[2023-04-05 06:00] VITALS: BMI 23.0
[2023-04-05 07:52] VITALS: BP 156/69; PULSE 70; RESP 20; TEMP 36.3; O2SAT 95
[2023-04-05 07:54] LABS: Creatinine Clr Calc Pharmacy 37.1; Estimated Glomerular Filt Rate > 60
[2023-04-05 09:37] VITALS: BP 156/69; PULSE 70; O2SAT 95
[2023-04-05] MEDS: timoloL maleate 0.5 % Oph Sol 5 ML DRBTL 1 DROP EYE-LEFT (10:05)
[2023-04-05] MEDS: prednisoLONE Acetate 1 % Oph Susp 5 ML DRPBTL 1 DROP EYE-RIGHT (10:06)
[2023-04-05] MEDS: Isosorbide Mononitrate 30 MG TAB.ER.24H PO (10:07)
[2023-04-05] MEDS: guaiFENesin LA 600 MG TAB.ER.12H PO (10:07)
[2023-04-05] MEDS: predniSONE 20 MG TABLET PO (10:09)
[2023-04-05] MEDS: lisinopriL 20 MG TABLET PO (10:09)
[2023-04-05] MEDS: 0.9 % Sodium Chloride Flush 3 ML SYRINGE IVFLUSH (10:09)
[2023-04-05] MEDS: levoFLOXacin/D5W 750 MG/150 ML PIGGYBACK 100 MG IV (10:50)
[2023-04-05 11:14] VITALS: BP 141/62; PULSE 79; RESP 20; TEMP 36.7; O2SAT 93
--- NOTE | 2023-04-05 11:52 | PM.DS ---
DS: Providers Provider Date of Service: 04/05/23 Date of admission: 03/23/23 10:03 Date of discharge: 04/05/23 Primary care physician: Volodymyr Edwards MD Consults: 03/23/23 10:02 Consult to Gastroenterology Routine Consulting Provider: [facility] [place] Gastroenterology Services Reason for consultation: anemia ?gib Has provider been notified: No 03/23/23 10:08 Consult to Cardiology Routine Consulting Provider: [facility] [place] Cardiovascular Services Reason for consultation: chest pain/elevated trop/? chf Has provider been notified: No 03/28/23 09:09 Consult to Pulmonology Routine Consulting Provider: Abel Hayes Reason for consultation: hypoxia Has provider been notified: No Attending physician on discharge: Ubaldo Correia Discharging clinician: Stacia Villafuerte DS: Diagnosis Discharge Diagnosis (1) ARDS (adult respiratory distress syndrome): Status: Acute (2) Guaiac positive stools: Status: Acute (3) Acute hypoxic respiratory failure: Status: Acute DS: Summary Hospital Course Hospital Course: From H&P on the day of admission 84 y/o F with PMH significant for?HTN, glaucoma, macular degeneration, blind in right eye, and 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 Denies any sick contact or travel or antibiotic use. She says seems think-URI like symptoms started after dental dental visit 2 weeks ago. currently denies any chest pain but feels congested , or abdominal pain or fever or chills or nausea or vomiting or any weakness or numbness. Lab imaging EKG reviewed: Has leukocytosis, H&H is 7.5, troponin 39.5-51.1 bnp 635 fobt positive. Chest x-ray:Diffuse bilateral infiltrates most consistent with pneumonia. ekg :Normal sinus rhythm Hospital course by problem: Acute hypoxemic respiratory failure secondary to pneumonia with sepsis, ARDS and acute chf Breathing and hypoxia gradually improving, able to be weaned off of high flow and now on 4L NC.chest CT 03/27 showed multilobar infiltrate, small pleural effusion, moderate size reactive mediastinal lymph nodes. repeat CXR 04/01 with interval decrease in RUL, YORDAN and LLL infiltrates. RPP negative. Strep pneumo pending, Legionella antigen negative. Blood cultures negative to date. s/p IV steroids and transitioned to po steroids. Treated with IV vancomycin and IV levaquin started on 04/01, status post IV ceftriaxone x 8d. Pulmonology recommends 7 days of Levaquin total. Acute diastolic CHF on admission, given IV Lasix in ED, later appeared euvolemic therefore diuretics held Echo showed EF 65 to 70 with normally functional bioprosthetic aortic valve. Responded well to IV, with decreased oxygen requirement. Appears euvolemic bicarb trending up Lasix drip stopped 04/02. Not on lasix at baseline. 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 Monitor fluid status and add back lasix as clinically indicated. Acute hypokalemia due to diuretics repleted and normalized Anemia, acute blood loss anemia +occult blood, no indication for transfusion, hematocrit improved and stable. Seen in consultation by GI and offered EGD but she prefers her GI doctor doing it at a later date. H/H has remained stable. 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 Outpatient follow up with primary service planner. Time Attestation Total time managing care of this patient today: 38 mintues. Discharge coordination time: Greater than 30 minutes Quality: Safe Use of Opioids Does Pt have an Active Cancer Diagnosis on the Problem List?: No Quality: Stroke Does the patient have a stroke diagnosis?: No Physical Exam Vital Signs: Vital Signs: Last Vital Signs Temp 98.1 F 04/05/23 11:14 Pulse 79 04/05/23 11:14 Resp 20 04/05/23 11:14 BP 141/62 H 04/05/23 11:14 Pulse Ox 93 04/05/23 11:14 O2 Del Method Nasal Cannula 04/05/23 11:14 O2 Flow Rate 4 04/05/23 11:14 FiO2 55 04/04/23 07:05 Oxygen Flow Rate 4 03/23/23 06:08 BMI result Body Mass Index 23.0 Const: General: cooperative, comfortable, no acute distress, alert and awake Nutritional Appearance: thin Orientation/consciousness: patient oriented x3 Eyes: Other: blind right eye Resp: Other: diminished but clear b/l Effort & Inspection: normal respiratory effort, able to speak in complete sentences, no respiratory distress and no use of accessory muscles Auscultation: clear to auscultation bilaterally Cardio: Jugular venous distension: no JVD Rate: regular rate GI: Inspection: No distended Palpation (GI): Soft to palpation and nontender Neuro: General: patient oriented x3, moves all extremities and CN's II-XI intact bilaterally Extrem: General: Yes no pedal edema DS: Data Data Completed and Pending Labs on day of discharge: Laboratory Results - last 24 hr 04/05/23 06:51 Creatinine 0.84 Estim Creat Clear Calc 37.1 Estimated GFR > 60 Discharge Plan Discharge Anticipated Discharge Date/Time: 04/05/23 15:00 Patient Disposition: Xfer Inpatient Rehab Fac Discharge Diagnosis: Acute hypoxic respiratory failure Pneumonia with sepsis Acute CHF ARDS Anemia, occult positive stools Referrals: [facility] [Outside] Volodymyr Edwards MD [Primary Care Provider] - 1 Week Discharge Medications: New lisinopril 20 mg Tablet 20 mg PO DAILY Qty: 30 0RF Protocol: Hold for SBP< HOLD for SBP < : 90 prednisone 20 mg Tablet 20 mg PO DAILY Qty: 1 0RF isosorbide mononitrate 30 mg Tablet Extended Release 24 Hr 30 mg PO DAILY Qty: 30 0RF Protocol: Hold for SBP< HOLD for SBP < : 90 clonazepam 0.5 mg Tablet 0.25 mg PO DAILY PRN (Reason: Anxiety/Restlessness) Qty: 1 0RF omeprazole 40 mg Capsule,Delayed Release(Dr/Ec) See Taper PO DAILY@0630 Qty: 30 0RF Taper: Prednisone 20 mg daily for 2 Days and 0 Hour 10 mg daily for 3 Days and 0 Hour levofloxacin 750 mg tablet 750 mg PO Q24H Qty: 2 0RF Continued acetaminophen 325 mg tablet 650 mg PO Q6H PRN (Reason: Pain, Mild (Pain Scale 1-3)) Qty: 10 0RF latanoprost 0.005 % drops 1 drp ophthalmic-Left BEDTIME prednisolone acetate 1 % drops,suspension 1 drp ophthalmic-Right DAILY timolol maleate 0.5 % drops 1 drp ophthalmic-Left BID diclofenac sodium 1 % gel 2 g topical QID PRN (Reason: Pain) calcium carbonate 500 mg calcium (1,250 mg) Tablet 500 mg PO BID Discontinued lisinopril 5 mg tablet 1 tab PO DAILY aspirin 81 mg Tablet,Chewable 81 mg PO DAILY Qty: 30 0RF omeprazole 10 mg Capsule,Delayed Release(Dr/Ec) 10 mg PO DAILY@0630 Discharge Orders: Discharge Order (Routine); Ordered 04/05/23 Ordered By: Stacia Villafuerte Activity on Discharge: As tolerated Stand Alone Forms: Patient Portal Discharge page Care Plan Goals: see below Health Concerns: Acute hypoxic respiratory failure ARDS Pneumonia with sepsis Heme-positive stools, anemia Uncontrolled hypertension acute diastolic CHF Plan of Treatment: Recommend prednisone 20 mg for two more days, the 10 mg for 3 days continue antibiotics for two more days dose of lisinopril was increased, imdur was added for improved control of blood pressure aspirin was stopped for anemia/heme + stool - call to schedule a follow-up appointment with your primary service planner Take omeprazole 40 mg daily wean oxygen as tolerated on lasix intermittently during hospitalization, currently euvolemic and off lasix for multiple days. monitor fluid status closely and add back lasix if clinically indicated. Assessment: see discharge summary Discharge Date/Time: 04/05/23 16:18
--- NOTE | 2023-04-05 12:28 | MHC.CM.PN ---
Addendum entered by Shahnaz Polo 04/05/23 15:12: SIGNED DCS [facility] Original Note: CM INFORMED ACUTE REHAB WAS BEING RECOMMENDED CM MET WITH PT WHO REPORTED SHE WOULD PREFER [facility] BUT WOULD ALSO ACCEPT [facility] OFFERED PT ACCEPTED THE BED AT [facility] TRANSPORT ARRANGED FOR 1530 HOURS VIA [facility]
[2023-04-07 14:19] LABS: Strep Pneumo Ag urine Not Detected (Not Detected)
== END 2023-04-05 16:18 | DRG 871 ==
LOC: HO.ED 08:13 → HO.EDOVER 10:10 → HO.IMC 14:28
PROVIDERS: Hospitalist; Internal Medicine; Admitting Provider Internal Medicine; Emergency Provider Internal Medicine; PCP Internal Medicine; Visit Provider Physician Assistant Medical
DX: A41.9 Sepsis, unspecified organism (principal); I50.31 Acute diastolic (congestive) heart failure; J18.9 Pneumonia, unspecified organism; J80 Acute respiratory distress syndrome; D62 Acute posthemorrhagic anemia; R19.5 Other fecal abnormalities; Z66 Do not resuscitate; F41.9 Anxiety disorder, unspecified; E87.6 Hypokalemia; H54.61 Unqualified visual loss, right eye, normal vision left eye; H40.9 Unspecified glaucoma; Z95.2 Presence of prosthetic heart valve; Z20.822 Contact with and (suspected) exposure to COVID-19; Z87.891 Personal history of nicotine dependence; Z79.82 Long term (current) use of aspirin; Z79.899 Other long term (current) drug therapy
CPT/HCPCS: 0241U; 36415; 36600; 71045; 71046; 71250; 80048; 80053; 80202; 82272; 82565; 82607; 82728; 82746; 82785; 82803; 83540; 83605; 83880; 84145; 84484; 85014; 85018; 85025; 85027; 86021; 86200; 86850; 86900; 86901; 86923; 87040; 87389; 87449; 87507; 87633; 87640; 87641; 87899; 93005; 93306; 94640; 97162; 99285; C9113; J0456; J0696; J1920; J1940; J1956; J2930; J3370; J3371; J3480; P9016; Q9957

== ENCOUNTER → 2023-03-23 05:47 | Outpatient (BNV) | payer MEDICARE, SELFPAY | PROVIDERS: Admitting Provider Internal Medicine; Emergency Provider Internal Medicine; Visit Provider Internal Medicine | DX: R07.9 Chest pain, unspecified (principal); R94.31 Abnormal electrocardiogram [ECG] [EKG] | CPT/HCPCS: 93010 ==

== ENCOUNTER 2023-03-23 10:03 | Outpatient (BNV) | payer MEDICARE, SELFPAY | END 2023-03-24 07:00 | PROVIDERS: Admitting Provider Internal Medicine; Emergency Provider Internal Medicine; PCP Internal Medicine; Visit Provider Internal Medicine Cardiovascular Disease | DX: I34.81 Nonrheumatic mitral (valve) annulus calcification (principal); I34.0 Nonrheumatic mitral (valve) insufficiency | CPT/HCPCS: 93306 ==

== ENCOUNTER → 2023-03-23 10:03 | Outpatient (BNV) | payer MEDICARE, SELFPAY | PROVIDERS: Admitting Provider Internal Medicine; Emergency Provider Internal Medicine; PCP Internal Medicine; Visit Provider Hospitalist | DX: J96.01 Acute respiratory failure with hypoxia (principal); J18.9 Pneumonia, unspecified organism; J80 Acute respiratory distress syndrome | CPT/HCPCS: 99223; 99233 ==

== ENCOUNTER → 2023-03-23 10:03 | Outpatient (BNV) | payer MEDICARE, SELFPAY | PROVIDERS: Admitting Provider Internal Medicine; Emergency Provider Internal Medicine; Visit Provider Internal Medicine | DX: J96.01 Acute respiratory failure with hypoxia (principal); A41.9 Sepsis, unspecified organism; J18.9 Pneumonia, unspecified organism; I50.31 Acute diastolic (congestive) heart failure; D64.9 Anemia, unspecified | CPT/HCPCS: 99223; 99232; 99233; 99239 ==

== ENCOUNTER → 2023-03-23 10:03 | Outpatient (BNV) | payer MEDICARE, SELFPAY | PROVIDERS: Admitting Provider Internal Medicine; Emergency Provider Internal Medicine; Visit Provider Internal Medicine Cardiovascular Disease | DX: J96.01 Acute respiratory failure with hypoxia (principal) | CPT/HCPCS: 99222; 99232; 99233 ==

== ENCOUNTER → 2023-09-09 10:40 | Outpatient (BNV) | payer MEDICARE, SELFPAY | PROVIDERS: PCP Family Medicine; Visit Provider Internal Medicine | DX: D46.9 Myelodysplastic syndrome, unspecified (principal); D53.9 Nutritional anemia, unspecified | CPT/HCPCS: 99204; 99215; G2211 ==

== ENCOUNTER 2023-09-30 10:48 | Day surgery (SDC) | payer MEDICARE, SELFPAY ==
--- NOTE | ~2023-09-30 | CT_ITS ---
Anemia. Concern for MDS/leukemia PROCEDURES: 1. Limited preprocedure CT of the pelvis. Permanent images saved in PACS. 2. 11 g bone marrow core biopsy of the left posterior iliac spine 3. 11 g bone marrow aspirate of the left posterior iliac spine CLINICIANS: Solitario Vega PA-C MEDICATIONS: -Versed 2 mg, lidocaine 1% 10 mL SQ -Antibiotics: None -For additional details, please see nursing flowsheet. COMPLICATIONS: None ESTIMATED BLOOD LOSS: < 5 ml CONTRAST: None SPECIMENS: 11 g core placed in formalin. Bone marrow aspirate placed in EDTA and sodium heparin tubes PROCEDURE NOTE: The procedure, risks, benefits, and alternatives were carefully explained to the patient and written informed consent was obtained. The patient was placed prone on the CT table. A timeout was performed. A limited CT of the pelvis was performed to localize posterior iliac spine and choose appropriate needle entry and trajectory. The patient was prepped and draped in usual sterile fashion. The skin, subcutaneous tissues, and periosteum were anesthetized with lidocaine. Under CT guidance, an 11-gauge bone marrow biopsy needle was advanced into the posterior iliac spine, with the tip positioned slightly cephalad. An 11-gauge core biopsy of the bone marrow was performed and was placed in formalin. Next, the 11-gauge bone marrow biopsy needle was then advanced into the posterior iliac spine, under CT guidance, with the tip positioned slightly caudal. A bone marrow aspirate was performed. The specimen was placed in the provided EDTA and sodium heparin tubes. The needle was removed. A dry dressing was applied and secured with Tegaderm. There were no immediate complications. The patient was stable after the procedure and was transferred to the post anesthesia care unit. CT/CT biopsy asp core bone marrow Impression: CT-guided bone marrow biopsy and aspiration. This procedure was performed by Solitario Vega PA-C and supervised by Dr. Pastrana. Electronically signed by: Richy Pastrana MD 10/16/2023 12:29 PM EDT
[2023-09-30 11:43] VITALS: BMI 22.1
[2023-09-30 11:45] VITALS: BP 157/55; PULSE 58; RESP 18; TEMP 36.6; O2SAT 100
--- NOTE | 2023-09-30 12:45 | MHC.SHP ---
Pre-Procedural Eval Section A - 24 Hr Update-Section A only Date of Service: 09/30/23 Section B - Complete if H&P > 30 days Chief Complaint: MDS,LEUKEMIA Details of Present Illness: 83 y/o female with macrocytic anemia. Hematology requests a bone marrow biopsy. Relevant Family History (Specify if Yes): No Relevant Social History: Tobacco Use (quit 2015) Present Medications: see Short Stay Collaborative assessment Medical History: Significant History History of Previous Operations: Relevant previous surgery/procedure and date(s) Allergies: Allergies Allergy/AdvReac Type Severity Reaction Status Date / Time fentanyl Allergy Shortness Verified 09/30/23 11:46 of Breath Penicillins Allergy Unknown Verified 09/30/23 11:46 procaine [From Novocain] Allergy Unknown Verified 09/30/23 11:46 Review of Systems Sugical H&P ROS: Negative: Cardiovascular and Respiratory and Yes, Specify: Musculoskeletal (back pain) Exam Surgical H&P Exam: Normal: Extremities, Normal: Skin and Normal: Neurological Plan 83 y/o female with macrocytic anemia -Bone marrow biopsy Time Spent With Patient Time: Total time managing care of this patient today ____ minutes.
[2023-09-30 13:43] VITALS: BP 147/48; PULSE 59; RESP 16; TEMP 36.2; O2SAT 97
[2023-09-30 13:50] LABS: Bone Marrow SEE SEPARATE REPORT
[2023-09-30 13:54] LABS: Baso%MD 0.7 %; Eos%MD 6.9 %; Hematocrit 25.4 % (37.0-47.0); Hemoglobin 8.4 g/dl (12.0-16.0); Lymph%MD 34.2 %; Mean Corpuscular HGB Conc 33.1 g/dl (31.0-35.0); Mean Corpuscular Volume 105.8 fL (80.0-98.0); Mean Platelet Volume 11.5 fL (9.4-12.3); Mono%MD 8.6 %; NRBC Pct Auto 0.3 /100WBC (0.0-0.2); Neut%MD 48.6 %; Platelet Count 176 X10*3/uL (160-400); Red Cell Distribution Width 16.5 % (11.0-16.0); White Blood Count 5.8 X10*3/uL (4.8-10.8)
[2023-09-30 13:58] VITALS: BP 143/49; PULSE 60; RESP 16; TEMP 36.2; O2SAT 97
[2023-09-30 14:49] LABS: Band Neutrophils Percent 7 % (3-5); Basophils Abs Manual 0.3 X10*3/uL (0.0-0.2); Basophils Percent Manual 5 % (0-2); Eosinophils Absolute Manual 0.2 X10*3/uL (0.0-0.4); Eosinophils Percent Manual 4 % (0-4); Lymphocytes Absolute Manual 1.9 X10*3/uL (1.2-4.9); Lymphocytes Percent Manual 32 % (20-40); Monocytes Absolute Manual 0.2 X10*3/uL (0.1-1.2); Monocytes Percent Manual 4 % (2-11); Neutrophils Absolute Manual 3.2 X10*3/uL (2.0-8.3); Neutrophils Percent Manual 48 % (45-73)
[2023-09-30 14:51] LABS: Macrocytosis 2+ (15-30) /OIF; Platelet Estimate NORMAL (NORMAL); RBC Morphology NOTED
[2023-09-30 14:52] LABS: Acanthocytes 1+ (0-2) /OIF; Basophilic Stippling 1+ (0-2) /OIF; Large Platelet PRESENT; Ovalocytes 1+ (5-14) /OIF; Platelet Morphology Comment NOTED; Tear Drop Cells 1+ (0-2) /OIF
== END 2023-09-30 14:14 | disposition home or self-care (01) ==
PROVIDERS: Pathology Anatomic Pathology & Clinical Pathology; Student in an Organized Health Care Education/Training Program; PCP Family Medicine; Visit Provider Internal Medicine
PROC: (CPT 38221; principal; 2023-09-30 13:00)
DX: D53.9 Nutritional anemia, unspecified (principal); R53.82 Chronic fatigue, unspecified; I10 Essential (primary) hypertension; Z95.2 Presence of prosthetic heart valve; H35.30 Unspecified macular degeneration; H35.60 Retinal hemorrhage, unspecified eye; Z79.899 Other long term (current) drug therapy; Z87.01 Personal history of pneumonia (recurrent); Z87.891 Personal history of nicotine dependence
CPT/HCPCS: 36415; 38221; 38222; 81455; 85007; 85027; 88184; 88185; 88237; 88264; 88280; 88305; 88311; 88313; 88341; 88342; J2250; J2310; J3010

== ENCOUNTER → 2023-09-30 12:39 | Outpatient (BNV) | payer MEDICARE, SELFPAY | PROVIDERS: PCP Family Medicine; Visit Provider Student in an Organized Health Care Education/Training Program | DX: D53.9 Nutritional anemia, unspecified (principal) | CPT/HCPCS: 38222; 77012 ==